=== PATIENT | female | born 1990 | race Caucasian/White ===

== ENCOUNTER → 2016-06-22 | Outpatient (REF) | payer OTHER | LOC: M LAB REF 12:53 | PROVIDERS: ATTEND Physician Assistant | DX: N39.0 Urinary tract infection, site not specified (principal) ==

== ENCOUNTER → 2016-08-03 | Outpatient (CLI) | payer OTHER ==
[~2016-08-03] MED LIST: KETO10TAB PO; OMEP40CA2 PO; ONDA1TAB15 PO
== END ==
LOC: M LAB 11:31
PROVIDERS: ATTEND Surgery
DX: K58.0 Irritable bowel syndrome with diarrhea (principal)

== ENCOUNTER → 2016-11-24 | Outpatient (REF) | payer OTHER ==
[~2016-11-24] MED LIST changes: +BACITAB PO; +CHOL4POW PO; +CIPR500T3 PO; +FLAG500T PO; +FLUO10CA9 PO; +HAIR1TAB5 PO; -ONDA1TAB15 PO; +ONDA4TAB5 PO; +PERCOCET PO; +PROBCAP4 PO
== END ==
LOC: M LAB REF 10:13
PROVIDERS: ATTEND Internal Medicine Gastroenterology
DX: R10.11 Right upper quadrant pain (principal); R11.0 Nausea; K59.1 Functional diarrhea

== ENCOUNTER 2016-11-26 23:18 | Emergency (ER) | payer OTHER ==
[~2016-11-26] VITALS: Ht 152.4 cm; Wt 100.0 kg
[~2016-11-26 23:18] MED LIST changes: -BACITAB PO; -CHOL4POW PO; -CIPR500T3 PO; -FLAG500T PO; -FLUO10CA9 PO; -HAIR1TAB5 PO; -PERCOCET PO; -PROBCAP4 PO
[2016-11-26] MEDS ORDERED: METOCLOPRAMIDE INJ 10MG/2ML VIAL (J2765) IV ONE (23:45)
[2016-11-26] MEDS ORDERED: MORPHINE 10 MG/ML 1ML VIAL IV ONE (23:45)
[2016-11-26] MEDS ORDERED: NS 1,000 ML IV ONE (23:45)
[2016-11-27 00:16] LABS: BASO # 0.1 K/mm3 (0.0-0.2); BASO % 0.5 % (0.0-1.0); EOS # 0.2 K/mm3 (0.0-0.50); EOS % 2.2 % (0.0-3.0); LARGE UNSTAINED CELL # 0.2 K/mm3 (0.0-0.4); LARGE UNSTAINED CELL % 1.6 % (0.0-4.0); LYMPH # 2.8 K/mm3 (1.5-6.5); LYMPH % 24.1 % (24.0-44.0); MEAN CORPUSCULAR HEMOGLOBIN 31.2 pg (27.0-33.0); MEAN CORPUSCULAR HGB CONC 35.4 g/dl (32.0-36.5); MEAN CORPUSCULAR VOLUME 88.2 fl (80.0-96.0); MONO # 0.6 K/mm3 (0.0-0.8); MONO % 5.7 % (0.0-5.0); NEUTROPHILS # 7.3 K/mm3 (1.8-7.7); NEUTROPHILS % 65.9 % (36.0-66.0); PLATELET COUNT, AUTOMATED 217 k/mm3 (150-450); RED CELL DISTRIBUTION WIDTH 13.1 % (11.5-14.5); WHITE BLOOD COUNT 11.1 K/mm3 (4.0-10.0)
[2016-11-27] MEDS ORDERED: GASTROGRAFIN SOLUTION 30ML (Q9963) PO ONE ×2 (00:30→01:00)
[2016-11-27 00:34] LABS: ALBUMIN/GLOBULIN RATIO 1.18 (1.00-1.93); ALKALINE PHOSPHATASE 78 U/L (45-117); ALT/SGPT 43 U/L (12-78); AMYLASE 71 U/L (25-115); ANION GAP 9 MEQ/L (8-16); AST/SGOT 28 U/L (15-37); BILIRUBIN,DIRECT 0.2 MG/DL (0.0-0.2); BILIRUBIN,TOTAL 0.9 MG/DL (0.2-1.0); BLOOD UREA NITROGEN 12 MG/DL (7-18); CALCIUM LEVEL 9.1 MG/DL (8.5-10.1); CARBON DIOXIDE LEVEL 25 MEQ/L (21-32); CHLORIDE LEVEL 107 MEQ/L (98-107); CREATININE FOR GFR 1.05 MG/DL (0.55-1.02); GLOMERULAR FILTRATION RATE > 60.0 (>60); GLUCOSE, FASTING 115 MG/DL (70-105); POTASSIUM SERUM 3.7 MEQ/L (3.5-5.1); SODIUM LEVEL 141 MEQ/L (136-145); TOTAL PROTEIN 7.4 GM/DL (6.4-8.2)
--- NOTE | 2016-11-27 01:50 | REPUSA ---
CLINICAL HISTORY: Abdominal pain. TECHNIQUE: Multiple axial, sagittal and coronal CT images were obtained through the abdomen and pelvi s without administration of oral or IV contrast material. COMMENTS: Paraesophageal hernia. Thickened bladder. The liver is mildly enlarged with decreased attenuation without mass or defect. There is no intra or extrahepatic biliary ductal dilatation. The spleen is normal. The gallbladder contains multiple galls tones. The pancreas is of normal contour and attenuation characteristics. There is no evidence of adr enal mass. The kidneys are normal in size, shape and configuration. No renal or ureteral calculi are identified. There is no hydroureter or hydronephrosis. There is no evidence for appendicitis. There is no bowel wall thickening. No evidence for small or la rge bowel obstruction. There is no evidence of abdominal ascites or lymphadenopathy. There is no evidence of intrinsic or extrinsic bladder mass. There is no pelvic ascites or lymphadeno anais. Images of the lung bases show no evidence of pleural or parenchymal mass. There are no pleural effusi ons. The bony structures are free of lytic or blastic lesions. Multilevel degenerative changes are seen in volving the thoracolumbar spine. Scattered calcifications are seen involving the aorta and major branches compatible with atherosclero sis. IMPRESSION: Paraesophageal hernia. Thickened bladder. Hepatomegaly with fatty liver infiltration. Cholelithiasis. Thank you for your kind referral of this patient.
[2016-11-27 03:07] VITALS: BP 119/64
[2016-11-28] MEDS ORDERED: FLUO10CA9 PO (22:29)
[2016-11-28] MEDS ORDERED: CIPR500T3 PO (22:29)
[2017-01-01] MEDS ORDERED: PROBCAP4 PO (07:46)
[2017-01-01] MEDS ORDERED: HAIR1TAB5 PO (07:46)
== END 2016-11-27 03:09 | disposition home or self-care (01) ==
LOC: M ED 23:18
DX: K80.20 Calculus of gallbladder without cholecystitis without obstruction (principal); K44.9 Diaphragmatic hernia without obstruction or gangrene; K76.0 Fatty (change of) liver, not elsewhere classified; R16.0 Hepatomegaly, not elsewhere classified; F17.200 Nicotine dependence, unspecified, uncomplicated; Z79.899 Other long term (current) drug therapy
CPT/HCPCS: 74176; 80048; 80076; 81001; 82150; 83690; 85025; 87086; 96374; 96375; 99283; J2765; Q9963

== ENCOUNTER 2016-11-28 22:17 | Observation (INO) | payer OTHER ==
[~2016-11-28] VITALS: Ht 162.6 cm; Wt 100.0 kg
[2016-11-28] MEDS ORDERED: CIPR500T3 PO (22:29)
[2016-11-28] MEDS ORDERED: FLUO10CA9 PO (22:29)
[2016-11-29] MEDS ORDERED: NS 1,000 ML IV ONE (01:00)
[2016-11-29] MEDS ORDERED: ONDANSETRON 4MG/2ML VIAL (J2405) IV ONE (01:00)
[2016-11-29] MEDS: MORPHINE 4 MG/ML 1ML SYRINGE IV PRN ×4 (01:09→18:15)
[2016-11-29 01:17] LABS: CONTROL LINE HCG INT CTR LINE PRESENT
[2016-11-29 01:21] LABS: BASO # 0.1 K/mm3 (0.0-0.2); BASO % 0.6 % (0.0-1.0); EOS # 0.3 K/mm3 (0.0-0.50); EOS % 2.4 % (0.0-3.0); LARGE UNSTAINED CELL # 0.2 K/mm3 (0.0-0.4); LARGE UNSTAINED CELL % 1.2 % (0.0-4.0); LYMPH % 23.2 % (24.0-44.0); MEAN CORPUSCULAR HEMOGLOBIN 31.5 pg (27.0-33.0); MEAN CORPUSCULAR HGB CONC 35.4 g/dl (32.0-36.5); MEAN CORPUSCULAR VOLUME 89.1 fl (80.0-96.0); MONO # 0.7 K/mm3 (0.0-0.8); MONO % 5.5 % (0.0-5.0); NEUTROPHILS # 8.6 K/mm3 (1.8-7.7); NEUTROPHILS % 67.1 % (36.0-66.0); PLATELET COUNT, AUTOMATED 238 k/mm3 (150-450); WHITE BLOOD COUNT 12.8 K/mm3 (4.0-10.0)
[2016-11-29 01:38] LABS: ALBUMIN/GLOBULIN RATIO 1.18 (1.00-1.93); ALKALINE PHOSPHATASE 79 U/L (45-117); ALT/SGPT 39 U/L (12-78); ANION GAP 10 MEQ/L (8-16); AST/SGOT 24 U/L (15-37); BILIRUBIN,DIRECT 0.1 MG/DL (0.0-0.2); BILIRUBIN,TOTAL 0.6 MG/DL (0.2-1.0); BLOOD UREA NITROGEN 9 MG/DL (7-18); CALCIUM LEVEL 8.9 MG/DL (8.5-10.1); CARBON DIOXIDE LEVEL 26 MEQ/L (21-32); CHLORIDE LEVEL 107 MEQ/L (98-107); CREATININE FOR GFR 0.97 MG/DL (0.55-1.02); GLOMERULAR FILTRATION RATE > 60.0 (>60); GLUCOSE, FASTING 110 MG/DL (70-105); POTASSIUM SERUM 4.3 MEQ/L (3.5-5.1); SODIUM LEVEL 143 MEQ/L (136-145); TOTAL PROTEIN 7.4 GM/DL (6.4-8.2)
[2016-11-29] MEDS ORDERED: ISOVUE-370 76% 100ML VIAL (Q9967) As Ordered ONE (02:11)
--- NOTE | 2016-11-29 03:40 | REPUSA ---
CLINICAL HISTORY: Abdominal pain. TECHNIQUE: Multiple axial, sagittal and coronal CT images were obtained through the abdomen and pelvi s after administration of intravenous contrast material. COMMENTS: Comparison is made to the prior exam performed on 11/27/2016. The liver remains moderately enlarged with decreased attenuation without mass or defect. There is no intra or extrahepatic biliary ductal dilatation. The spleen remains mildly enlarged. The gallbladder is thickened containing gallstones. The pancreas is of normal contour and attenuation characteristics . There is no evidence of adrenal mass. Both kidneys demonstrate prompt and equal nephrograms. The kidneys are normal in size, shape and conf iguration. There is no evidence of renal or ureteral mass. No renal or ureteral calculi are identifie d. There is no hydroureter or hydronephrosis. No evidence for appendicitis. No evidence for small or large bowel obstruction. There is no evidence of abdominal ascites or lymphadenopathy. Mild thickening of the sigmoid colon. There is no evidence of intrinsic or extrinsic bladder mass. There is no pelvic ascites or lymphadeno anais. 1.6 cm right ovarian follicle/corpus luteum cyst. Moderate large bowel fecal stasis. Thickened sigmoi d colon. Images of the lung bases show no evidence of pleural or parenchymal mass. There are no pleural effusi ons. The bony structures are free of lytic or blastic lesions. Multilevel degenerative changes are seen in volving the thoracolumbar spine. Scattered calcifications are seen involving the aorta and major bran ches compatible with atherosclerosis. Fat containing umbilical hernia without incarceration. IMPRESSION: Thickened sigmoid colon suggestive of colitis. No perforation or abscess formation. This was not pres ent on prior exam. Moderate sliding hiatal hernia. Thank you for your kind referral of this patient.
[2016-11-29] MEDS ORDERED: MORPHINE 4 MG/ML 1ML SYRINGE IV PRN (04:15)
[2016-11-29] MEDS ORDERED: CIPROFLOXACIN 400 MG in APPROPRIATE DILUENT 1 EA IV ONE (04:30)
[2016-11-29] MEDS ORDERED: ACETAMINOPHEN TAB 650MG DOSE (2X325MG) PO PRN (04:30)
[2016-11-29] MEDS ORDERED: metroNIDAZOLE 500 MG in APPROPRIATE DILUENT 1 EA IV ONE (04:30)
[2016-11-29] MEDS ORDERED: ONDA4TAB5 PO (04:37)
[2016-11-29] MEDS ORDERED: CHOL4POW PO (04:37)
[2016-11-29] MEDS ORDERED: OMEP40CA2 PO (04:37)
--- NOTE | 2016-11-29 05:19 | HPEPDOC ---
Medical History and Physical Date of Admission Nov 28, 2016 at 22:18 History and Physical PRIMARY CARE PROVIDER: Kane Trejo ATTENDING: Hoang Augustin DO CHIEF COMPLAINT: Worsening abdominal pain HISTORY OF PRESENT ILLNESS: 26-year-old female presents to emergency department with worsening abdominal pain for the last 24 hours. She has previously been evaluated by the emergency department within the last few weeks for similar symptoms with worsening abdominal pain, nausea, vomiting. [place] to have cholelithiasis with no acute findings of cholecystitis. She's had a recent EGD/ colonoscopy [address] Anna Travis in [place]. Recently found to have duodenitis and was started on Cipro by mouth 500 mg twice a day and felt that her abdominal pain was better for the last few days until today. This morning she has had progressively worsening abdominal pain, which she recently relates as being diffuse, intermittent with sharp, colicky type pain that radiates to her back. She's also had nausea, vomiting and she's not had a bowel movement for 2 days prior to this. She denies having any bloody stool. No dysuria, frequency or hematuria. She denies fevers, chills, RIGORS but she has had decreased appetite. She denies any sick contacts. There does not appear to be any family history of inflammatory bowel disease. PAST MEDICAL HISTORY: 1. Depression. 2. Recurrent chronic abdominal pain. 3. Recent duodenitis. 4. GERD. 5. Cholelithiasis PAST SURGICAL HISTORY: 1. 2. 2. Colonoscopy November 2006. 3. Right tibial fracture with repair. SOCIAL HISTORY: She is not . She has 2 biological children. She smokes less than 10 cigarettes a day. Drinks alcohol on occasion but denies any illicit drug use FAMILY HISTORY: No family history of inflammatory bowel disease ALLERGIES: No known drug allergies REVIEW OF SYSTEMS: CONSTITUTIONAL: No fever, chills, weight loss. HEENT: No headache, lightheadedness, blurred or loss of vision. No difficulty with speech or swallow. CARDIOVASCULAR: No chest pain, palpitations, paroxysmal nocturnal dyspnea or lower extremity edema RESPIRATORY: No cough, productive sputum, wheeze or hemoptysis GENITOURINARY: No dysuria, frequency, or discharge MUSCULOSKELETAL: No bone, muscle or joint pain. GASTROINTESTINAL: Decreased appetite, vague abdominal pain, distention, colicky type pain. 3 patient to the back as outlined per HPI. She has not had any diarrhea. She states she's not had a bowel movement for the last 2 days since her colonoscopy. But she's had ongoing problems with abdominal pain for the last several months. SKIN: No complaint of lesions, abrasions or rashes NEUROLOGICAL: No blurred vision, headaches, parasthesias or paralysis PSYCHIATRIC: No depression, anxiety, audiovisual hallucinations. No suicidal ideations. ENDOCRINE: Denies history of diabetes or thyroid disorder. No history of endocrine abnormalities. HEMATOLOGIC/LYMPHATIC: No lumpbs, bumps or swelling of neck, axilla or groin. No night sweats or weight loss. HOME MEDICATIONS: Please see below. PHYSICAL EXAMINATION: VITAL SIGNS: Stable. No acute findings see below GENERAL APPEARANCE: Mild discomfort with the abdominal pain. She's able to speak in complete sentences and is pleasant otherwise. Scrubs her pain at times is 9 out of 10.. HEENT: Eyes PERRLA. Throat clear. Neck supple. . CARDIOVASCULAR: Regular rate and rhythm. No murmurs. LUNGS: Clear to auscultation bilaterally. ABDOMEN: Vague distention, vague tenderness, positive bowel sounds. No rebound. MUSCULOSKELETAL: No bone, muscle or joint tenderness. No erythema. No limitations in range of motion. EXTREMITIES: No edema, no calf tenderness. NEUROLOGICAL: [place] nursing 12 appear grossly intact. No motor or sensory deficits. LABORATORY DATA: See below. IMAGING: CT abdomen and pelvis with contrast: Thickened sigmoid colon suggestive of colitis. No perforation or abscess formation. This is a new finding from prior CT scan that was done in the last couple weeks. Gallbladder ultrasound: Repeat gallbladder ultrasound is pending at this time noting that she had a ultrasound done of the gallbladder and a nuclear scan in June 2016 that was suggestive of cholelithiasis but no cholecystitis. MICROBIOLOGY: Please see below. ASSESSMENT: 1. Acute colitis. 2. Leukocytosis. 3. Nausea and vomiting. 4. GERD. 5. History of depression with no suicidal ideation or audiovisual hallucinations.. . PLAN: Patient will be admitted to the medical floor. Dr. TIM. We'll see the patient in the morning. She will be made nothing by mouth, will be started on IV normal saline at 100 mL per hour. We'll see how she does through breakfast she may be started on clear liquid diet that time and progress as tolerated. IV antibiotics will include Cipro and metronidazole. IV Zofran for nausea, for her abdominal pain. We'll treat with IV morphine, by mouth, Percocet, and Toradol. Additionally, we will include a lactic acid with her labs. Repeat her morning labs including a CMP and CBC. For now, she does not appear to have an acute abdomen requiring a surgical evaluation, however, she should progress and symptoms become worse, we may want to consider a surgical consult with Dr. Philippe who is concrete form setter and finisher this weekend and has seen the patient previously. Otherwise, we will continue her on her home medications with Prozac, Prilosec. DVT prophylaxis with Lovenox. Disposition: The patient be admitted as observation.. Vital Signs Vital Signs Date Time Temp Pulse Resp B/P (MAP) Pulse Ox O2 Delivery O2 Flow Rate FiO2 11/29/16 04:29 18 Room Air 11/29/16 03:58 78 11/29/16 03:43 98 11/29/16 03:42 156/86 (109) 11/28/16 22:23 96.2 Laboratory Data Labs 24H Laboratory Tests 2 11/29/16 00:58: Anion Gap 10, Glomerular Filtration Rate > 60.0, Calcium Level 8.9, Aspartate Amino Transf (AST/SGOT) 24, Alanine Aminotransferase (ALT/SGPT) 39, Alkaline Phosphatase 79, Total Bilirubin 0.6, Direct Bilirubin 0.1, Total Protein 7.4, Albumin 4.0, Albumin/Globulin Ratio 1.18, Lipase 270, Human Chorionic Gonadotropin, Qual NEGATIVE 11/29/16 00:59: White Blood Count 12.8H, Red Blood Count 4.51, Hemoglobin 14.2, Hematocrit 40.2 , Mean Corpuscular Volume 89.1, Mean Corpuscular Hemoglobin 31.5, Mean Corpuscular Hemoglobin Concent 35.4, Red Cell Distribution Width 13.0, Platelet Count 238, Neutrophils (%) (Auto) 67.1H, Lymphocytes (%) (Auto) 23.2L, Monocytes (%) (Auto) 5.5H, Eosinophils (%) (Auto) 2.4, Basophils (%) (Auto) 0.6 , Neutrophils # (Auto) 8.6H, Lymphocytes # (Auto) 3.0, Monocytes # (Auto) 0.7, Eosinophils # (Auto) 0.3, Basophils # (Auto) 0.1, Large Unclassified Cells % 1.2 , Large Unclassified Cells # 0.2, Urine Appearance HAZY, Urine Color YELLOW, Urine pH 5.0, Urine Specific [place] 1.024, Urine Protein NEGATIVE, Urine Glucose (UA) NEGATIVE, Urine Ketones NEGATIVE, Urine Urobilinogen 0.2, Urine Bilirubin NEGATIVE, Urine Leukocyte Esterase NEGATIVE, Urine Blood NEGATIVE, Urine Nitrite NEGATIVE, Urine WBC (Auto) 2, Urine RBC (Auto) 1, Urine Hyaline Casts (Auto) 0, Urine Bacteria (Auto) NEGATIVE, Urine Squamous Epithelial Cells 11, Urine Mucus (Auto) SMALL, Urine Sperm (Auto) CBC/BMP Laboratory Tests 11/29/16 00:58 11/29/16 00:59 Red Blood Count 4.51, Mean Corpuscular Volume 89.1, Mean Corpuscular Hemoglobin 31.5, Mean Corpuscular Hemoglobin Concent 35.4, Red Cell Distribution Width 13.0 , Neutrophils (%) (Auto) 67.1 H, Lymphocytes (%) (Auto) 23.2 L, Monocytes (%) ( Auto) 5.5 H, Eosinophils (%) (Auto) 2.4, Basophils (%) (Auto) 0.6, Neutrophils # (Auto) 8.6 H, Lymphocytes # (Auto) 3.0, Monocytes # (Auto) 0.7, Eosinophils # (Auto) 0.3, Basophils # (Auto) 0.1 Microbiology Microbiology 11/29/16 Blood Culture, Received Pending 11/29/16 Blood Culture, Received Pending 11/29/16 Urine Culture, Received Pending Home Medications Scheduled Cholestyramine (Cholestyramine Light) 4 Gm/Dose Pow, 1 PKT PO TIDP Ciprofloxacin HCl (Ciprofloxacin HCl) 500 Mg Tab, 500 MG PO BID TO END 12/06/16 Fluoxetine HCl (Fluoxetine HCl) 10 Mg Cap, 10 MG PO DAILY Omeprazole (Omeprazole) 40 Mg Cap, 40 MG PO BID Scheduled PRN Ondansetron HCl (Ondansetron HCl) 4 Mg Tab, 4 MG PO QID PRN for NAUSEA Allergies Coded Allergies: No Known Drug Allergy (Verified Allergy, Unknown, 07/26/12) HOANG AUGUSTIN DO Nov 29, 2016 05:19
--- NOTE | 2016-11-29 05:20 | REPUSA ---
CLINICAL HISTORY: Abdominal pain. TECHNIQUE: Realtime sonographic images were obtained in multiple projections. COMMENTS: There is diffuse increase in hepatic echogenicity suggestive of fatty liver infiltration. Gallstones are noted. Distended gallbladder. Nondilated common bile duct measuring 3.9 mm. The right kidney measures 9.1x4.9x1.2 cm. IMPRESSION: Fatty liver. Cholelithiasis. Thank you for your kind referral of this patient.
[2016-11-29] MEDS: NS 1,000 ML IV SCH ×2 (05:57→15:47)
[2016-11-29] MEDS: KETOROLAC TROMETHAMINE 10 MG TAB PO PRN ×3 (05:57→20:08)
[2016-11-29 06:00] VITALS: BP 141/67
[2016-11-29] MEDS: ONDANSETRON 4MG/2ML VIAL (J2405) IV PRN ×3 (06:12→20:08)
[2016-11-29 08:00] VITALS: BP 131/72
[2016-11-29] MEDS: PERCOCET 5MG/325MG TAB PO PRN ×3 (08:55→21:52)
[2016-11-29 09:15] VITALS: BP 121/71
[2016-11-29] MEDS: OMEPRAZOLE 20 MG CAP PO SCH (11:30)
[2016-11-29] MEDS: ENOXAPARIN 40 MG/0.4 ML SYRINGE (J1650) SC SCH (11:30)
[2016-11-29] MEDS: FLUoxetine 10 MG CAP PO SCH (11:30)
[2016-11-29] MEDS: metroNIDAZOLE 500 MG in APPROPRIATE DILUENT 1 EA IV SCH ×2 (11:30→20:02)
--- NOTE | 2016-11-29 15:39 | IPN ---
DATE: 11/29/2016 SUBJECTIVE: The patient is seen and examined in the room today. The patient stated her pain is improving with the current pain medication regimen. Per patient, when the patient first arrived in the emergency room, they had a very difficult time controlling her pain, even after multiple doses of morphine and she still had uncontrolled excruciating pain. Currently, the pain is still across her upper abdomen but nausea is improving. OBJECTIVE: VITAL SIGNS: Temperature is 96.8, pulse is 73, respiratory rate of 20, blood pressure 131/72, pulse oximetry is 99% in room air. GENERAL: No sign of acute distress, resting comfortably in bed. HEENT: Normocephalic, atraumatic. Extraocular motor grossly intact. CARDIOVASCULAR: Positive S1, S2, regular rate. LUNGS: Clear to auscultation bilaterally. ABDOMEN: Soft, tenderness to palpation mainly on the right upper quadrant. Positive rebound. MUSCULOSKELETAL: No edema. No sign of cyanosis. LABORATORY DATA: Done near midnight: WBC 12.8, hemoglobin 14.2, hematocrit 40.2, platelet count is 238. Sodium is 143, potassium 4.3, chloride is 107, carbon dioxide is 26, BUN is 9, creatinine is 0.97, GFR greater than 60, fasting glucose 110, calcium is 8.9, total bilirubin 0.6, direct bilirubin 0.1, AST 24, ALT 29, alkaline phosphatase is 79, total protein 7.4. Albumin 4, lipase 270. HCG is negative. ASSESSMENT AND PLAN: 1. Acute colitis. The patient has been started on Cipro and Flagyl. The patient is using IV Zofran for nausea. The patient does have IV morphine and oral Toradol for pain control. 2. Cholelithiasis, resulting in intermittent right upper abdominal quadrant pain. 3. Gastroesophageal reflux disease. 4. Depression, on Prozac. 5. Deep vein thrombosis (DVT) prophylaxis, on Lovenox.
[2016-11-29 16:00] VITALS: BP 124/74
[2016-11-29] MEDS: CIPROFLOXACIN 400 MG in APPROPRIATE DILUENT 1 EA IV SCH (18:14)
[2016-11-29 20:00] VITALS: BP 118/70
[2016-11-30] MEDS: NS 1,000 ML IV SCH (01:20)
[2016-11-30] MEDS: MORPHINE 4 MG/ML 1ML SYRINGE IV PRN (01:20)
[2016-11-30] MEDS: KETOROLAC TROMETHAMINE 10 MG TAB PO PRN ×2 (02:44→11:24)
[2016-11-30 04:00] VITALS: BP 119/73
[2016-11-30] MEDS: metroNIDAZOLE 500 MG in APPROPRIATE DILUENT 1 EA IV SCH (04:10)
[2016-11-30] MEDS: CIPROFLOXACIN 400 MG in APPROPRIATE DILUENT 1 EA IV SCH (06:24)
[2016-11-30] MEDS: PERCOCET 5MG/325MG TAB PO PRN (06:24)
[2016-11-30 07:07] LABS: MEAN CORPUSCULAR HEMOGLOBIN 31.3 pg (27.0-33.0); MEAN CORPUSCULAR VOLUME 89.6 fl (80.0-96.0); RED CELL DISTRIBUTION WIDTH 13.2 % (11.5-14.5)
[2016-11-30 07:28] LABS: ALBUMIN 2.9 GM/DL (3.2-5.2); ALKALINE PHOSPHATASE 59 U/L (45-117); ALT/SGPT 26 U/L (12-78); ANION GAP 9 MEQ/L (8-16); AST/SGOT 15 U/L (15-37); BILIRUBIN,TOTAL 0.4 MG/DL (0.2-1.0); BLOOD UREA NITROGEN 8 MG/DL (7-18); CALCIUM LEVEL 7.9 MG/DL (8.5-10.1); CARBON DIOXIDE LEVEL 26 MEQ/L (21-32); CHLORIDE LEVEL 108 MEQ/L (98-107); GLOMERULAR FILTRATION RATE > 60.0 (>60); GLUCOSE, FASTING 123 MG/DL (70-105); POTASSIUM SERUM 3.9 MEQ/L (3.5-5.1); SODIUM LEVEL 143 MEQ/L (136-145); TOTAL PROTEIN 5.8 GM/DL (6.4-8.2)
[2016-11-30 08:00] VITALS: BP 133/60
[2016-11-30] MEDS: FLUoxetine 10 MG CAP PO SCH (09:11)
[2016-11-30] MEDS: OMEPRAZOLE 20 MG CAP PO SCH (09:11)
[2016-11-30] MEDS: ENOXAPARIN 40 MG/0.4 ML SYRINGE (J1650) SC SCH (09:12)
[2016-11-30] MEDS: ONDANSETRON 4MG/2ML VIAL (J2405) IV PRN (11:24)
[2016-11-30] MEDS ORDERED: PERCOCET PO (11:43)
[2016-11-30] MEDS ORDERED: FLAG500T PO (11:43)
[2016-11-30] MEDS ORDERED: BACITAB PO (11:43)
[2016-11-30] MEDS ORDERED: FLUO10CA9 PO (12:35)
--- NOTE | 2016-11-30 20:39 | DSES ---
DATE OF ADMISSION: 11/28/2016 DATE OF DISCHARGE: 11/30/2016 CONSULTANTS: None. PROCEDURES: None. COMPLICATIONS: None. DISCHARGE DIAGNOSES: 1. Acute colitis. 2. Severe cholelithiasis resulting in recurrent right upper quadrant abdominal pain. 3. Gastroesophageal reflux disease. 4. Depression. 5. Hiatal hernia. HOSPITALIZATION COURSE: The patient is a 26-year-old female who presented to [facility] on 11/28/2016 for worsening abdominal pain. The patient had a recent history of esophagogastroduodenoscopy (EGD) and colonoscopy (2 days prior to admission). The patient was admitted for acute colitis. The patient was started on Cipro and Flagyl. The patient was continued on pain control and medical management. CT scan findings suggested colitis. The patient was admitted to the medical-surgical floor under observation status with antibiotic and medical management. Patient showed improvement of her abdominal pain. On 11/30/2016, the patient was determined medically stable for discharge with recommendation to finish a course of antibiotics and the patient was recommended to followup with her surgeon or gastrointestinal (GI) specialist to evaluate her recurrent right-sided abdominal pain due to significant cholelithiasis. OBJECTIVE: Vital Signs: Temperature is 98.7, pulse is 71, respirations 20, blood pressure is 133/60, pulse oximetry is 98% in room air. LABORATORY DATA: WBC 7, hemoglobin 11.6, hematocrit 33.3, platelet count is 147. Sodium is 143, potassium 3.9, chloride is 108, carbon dioxide 26, BUN 8, creatinine 0.9, GFR greater than 60, fasting glucose 123, calcium is 7.9, total bilirubin is 0.4, AST 15, ALT 26, alkaline phosphatase 59, C-reactive protein is 1.64. Total protein is 5.8, albumin 2.9. HCG is negative. Lipase is 270. UA is negative. Microbiology: Blood culture is negative after 24 hours times two sets. Urine culture is negative. IMAGING STUDIES: Gallbladder ultrasound on 11/29/2016 showed fatty liver. Cholelithiasis. CT of the abdomen and pelvis with IV contrast only on 11/29/2016 showed thickened sigmoid colon suggestive of colitis. No perforation or abscess formation. Moderate sliding hiatal hernia. DISCHARGE MEDICATIONS: - fluoxetine 10 mg by mouth daily - Bacid one tablet by mouth with meals - Flagyl 500 mg by mouth every 8 hours - ciprofloxacin 500 mg by mouth twice a day - Percocet 5/325 one tablet by mouth every 6 hours as needed for a 5-day supply - omeprazole 40 mg by mouth twice a day - ondansetron 4 mg by mouth four times a day as needed for nausea DISCHARGE INSTRUCTIONS: Discontinue lines. Discharge home. Activity as tolerated. Diet as tolerated. Patient should followup with her primary care provider in 1-2 weeks. Patient was recommended to followup with a GI specialist, her own surgeon to reevaluate recurrent right upper quadrant abdominal pain due to significant cholelithiasis. DISCHARGE CONDITION: Stable. DISCHARGE TIME: Greater than 30 minutes.
[2017-01-01] MEDS ORDERED: PROBCAP4 PO (07:46)
[2017-01-01] MEDS ORDERED: HAIR1TAB5 PO (07:46)
== END 2016-11-30 13:30 | disposition home or self-care (01) ==
LOC: M ED 22:17 → M ED INP 22:18 → M PED 11-29 09:12
PROVIDERS: ADMIT Hospitalist; ATTEND Internal Medicine
DX: K52.9 Noninfective gastroenteritis and colitis, unspecified (principal); K80.20 Calculus of gallbladder without cholecystitis without obstruction; R10.11 Right upper quadrant pain; K21.9 Gastro-esophageal reflux disease without esophagitis; F32.9 Major depressive disorder, single episode, unspecified; K44.9 Diaphragmatic hernia without obstruction or gangrene; D72.829 Elevated white blood cell count, unspecified; K76.0 Fatty (change of) liver, not elsewhere classified; R11.2 Nausea with vomiting, unspecified; F17.210 Nicotine dependence, cigarettes, uncomplicated; Z79.899 Other long term (current) drug therapy; Z79.2 Long term (current) use of antibiotics
CPT/HCPCS: 36415; 74177; 76705; 80048; 80053; 80076; 81001; 83690; 84703; 85025; 85027; 86140; 87040; 87086; 93041; 96365; 96366; 96367; 96372; 96375; 96376; 99285; J0744; J1650; J2405; Q9967

== ENCOUNTER 2017-01-08 08:07 | Day surgery (SDC) | payer OTHER ==
[~2017-01-08] VITALS: Ht 152.4 cm; Wt 95.3 kg
[~2017-01-08 08:07] MED LIST changes: +BACITAB PO; +CHOL4POW PO; +CIPR500T3 PO; +FLAG500T PO; +FLUO10CA9 PO; +HAIR1TAB5 PO; +PERCOCET PO; +PROBCAP4 PO
[2017-01-08 08:35] LABS: CONTROL LINE UCG INT CTR LINE PRESENT
[2017-01-08] MEDS ORDERED: BUPIVACAINE/EPIN 0.25% 30 ML VIAL As Ordered ONE (09:08)
[2017-01-08] MEDS ORDERED: ceFAZolin 2 GM/D5W 50 ML IV BAG (J0690) As Ordered ONE (09:12)
[2017-01-08] MEDS ORDERED: LIDOCAINE 2% INJ 100 MG/5 ML SDV (FOR ANES.) As Ordered ONE (09:33)
[2017-01-08] MEDS ORDERED: fentaNYL 100 MCG/2 ML INJECTION (J3010) As Ordered ONE (09:33)
[2017-01-08] MEDS ORDERED: ROCURONIUM BROMIDE 50 MG/5 ML VIAL/SYRINGE As Ordered ONE (09:33)
[2017-01-08] MEDS ORDERED: PROPOFOL 200 MG/20 ML VIAL As Ordered ONE (09:33)
[2017-01-08] MEDS ORDERED: MIDAZOLAM INJ 2 MG/2 ML VIAL (J2250) As Ordered ONE (09:33)
[2017-01-08] MEDS ORDERED: dexameTHASONE 4 MG/ML 1ML VIAL (J1100) As Ordered ONE (09:34)
[2017-01-08] MEDS ORDERED: ceFAZolin 2 GM/D5W 50 ML IV BAG (J0690) IV ONE (09:38)
[2017-01-08] MEDS ORDERED: KETOROLAC 60 MG/2 ML VIAL (J1885) As Ordered ONE (09:57)
[2017-01-08] MEDS ORDERED: ONDANSETRON 4MG/2ML VIAL (J2405) As Ordered ONE ×2 (09:57→10:34)
[2017-01-08] MEDS ORDERED: NEOSTIGMINE 10 MG/10 ML VIAL (J2710) As Ordered ONE (09:59)
[2017-01-08] MEDS ORDERED: GLYCOPYRROLATE INJ 0.2 MG/ML 2 ML VIAL As Ordered ONE (09:59)
[2017-01-08] MEDS ORDERED: MEPERIDINE INJ 25 MG/ML VIAL (J2175) IV PRN (10:45)
[2017-01-08] MEDS ORDERED: ONDANSETRON 4MG/2ML VIAL (J2405) IV PRN (10:45)
[2017-01-08] MEDS ORDERED: NORCO, ANEXSIA 5/325MG TABLET (HYDROcodone/ACETAMINOPHEN) PO PRN (10:45)
[2017-01-08] MEDS: PERCOCET 5MG/325MG TAB PO PRN ×2 (10:45→11:15)
[2017-01-08] MEDS ORDERED: LR 1,000 ML IV SCH (10:45)
[2017-01-08] MEDS ORDERED: METOCLOPRAMIDE INJ 10MG/2ML VIAL (J2765) IV PRN (10:45)
[2017-01-08] MEDS ORDERED: fentaNYL 100 MCG/2 ML INJECTION (J3010) IV PRN (10:45)
--- NOTE | 2017-01-08 11:09 | RO ---
DATE OF PROCEDURE: 01/08/2017 PREOPERATIVE DIAGNOSIS: Symptomatic cholelithiasis. POSTOPERATIVE DIAGNOSIS: Symptomatic cholelithiasis. PROCEDURE: Laparoscopic cholecystectomy. SURGEON: Dr. Ignacio SUPPLY REQUIREMENTS OFFICER: None. ANESTHESIA: General. ESTIMATED BLOOD LOSS: 5 COMPLICATIONS: None. INDICATION FOR PROCEDURE: The patient is a 26-year-old female who presents with symptomatic cholelithiasis. Recommendation was to proceed with laparoscopic, possible open cholecystectomy. Risks and benefits of the procedure, not limited to, but including bleeding, infection, hernia formation, damage to surrounding structures, need for further surgery were discussed in detail with the patient and informed consent was obtained. Procedure was planned. PROCEDURE: The patient was brought back to operating room #3. After sufficient sedation, the abdomen was sterilely prepped and draped. Next, time-out was done to confirm proper patient and proper procedure. Following that, a stab incision was made in the left lower quadrant, Veress needle was inserted and the abdomen was insufflated to 50 mmHg. Next, a 5 mm infraumbilical incision was made. A 5 mm Optiview port was used to gain access to the abdomen. Once the abdomen was entered, Veress needle site was examined and there were no signs of any injury. Veress needle was then removed. The 10 mm port was then placed subxiphoid, two 5 mm ports to the right upper quadrant. Fundus of the gallbladder was grasped, elevated up towards right shoulder. The cystic duct and cystic artery were both carefully dissected free using combination of blunt and sharp dissection. They were both then doubly clipped and cut. Once those were freed, the of gallbladder was removed from the gallbladder fossa using electrocautery. Gallbladder was then placed in a 10 mm EndoCatch bag and brought out through the subxiphoid port site. Once the gallbladder was removed, the right upper quadrant was examined to confirm hemostasis. The abdomen was then desufflated. Skin incisions were closed #4-0 Vicryl subcuticular sutures. The abdomen was cleaned and dried. Steri-Strips, 4x4 and tape were applied, thus ending procedure.
[2017-01-08 12:15] VITALS: BP 144/70
== END 2017-01-08 12:43 | disposition home or self-care (01) ==
LOC: M SDC 08:07
PROVIDERS: ATTEND Surgery
DX: K80.10 Calculus of gallbladder with chronic cholecystitis without obstruction (principal); K44.9 Diaphragmatic hernia without obstruction or gangrene; F41.9 Anxiety disorder, unspecified; Z79.899 Other long term (current) drug therapy; Z72.0 Tobacco use; Z86.19 Personal history of other infectious and parasitic diseases

== ENCOUNTER → 2017-02-11 | Outpatient (REF) | payer OTHER | LOC: M LAB REF 17:27 | PROVIDERS: ATTEND Family Medicine Addiction Medicine | DX: Z11.3 Encounter for screening for infections with a predominantly sexual mode of transmission (principal); Z12.4 Encounter for screening for malignant neoplasm of cervix ==

== ENCOUNTER 2018-06-27 21:14 | Emergency (ER) | payer BC, MEDICAID, OTHER, SELFPAY ==
[~2018-06-27] VITALS: Ht 152.4 cm; Wt 104.1 kg
[2018-06-27 21:14] VITALS: BP 158/100
[2018-06-27] MEDS ORDERED: ESCI10TA2 (21:19)
[2018-06-27 22:07] LABS: INFLUENZA A AMPLIFICATION NEGATIVE (NEGATIVE); INFLUENZA B AMPLIFICATION NEGATIVE (NEGATIVE)
[2018-06-27] MEDS ORDERED: DEBR6.5S4 OTIC (23:23)
== END 2018-06-28 00:10 | disposition home or self-care (01) ==
LOC: M ED 21:14
DX: J02.9 Acute pharyngitis, unspecified (principal); H61.23 Impacted cerumen, bilateral; R51 Headache; R11.0 Nausea; I10 Essential (primary) hypertension; K21.9 Gastro-esophageal reflux disease without esophagitis; K44.9 Diaphragmatic hernia without obstruction or gangrene; F41.9 Anxiety disorder, unspecified; M54.5 Low back pain; F17.210 Nicotine dependence, cigarettes, uncomplicated

== ENCOUNTER 2018-08-03 08:57 | Emergency (ER) | payer BC, MEDICAID, SELFPAY ==
[~2018-08-03] VITALS: Ht 152.4 cm; Wt 104.5 kg
[~2018-08-03 08:57] MED LIST changes: +DEBR6.5S4 OTIC; +ESCI10TA2
[2018-08-03 10:18] LABS: INFLUENZA A AMPLIFICATION NEGATIVE (NEGATIVE); INFLUENZA B AMPLIFICATION NEGATIVE (NEGATIVE)
[2018-08-03 10:51] VITALS: BP 136/77
[2018-08-03] MEDS ORDERED: LIDO1SOL8 PO (11:02)
[2018-08-03] MEDS ORDERED: FLON1SPR NARES (11:02)
[2018-08-03] MEDS ORDERED: MUCI600T31 PO (11:02)
== END 2018-08-03 11:10 | disposition home or self-care (01) ==
LOC: M ED 08:57
DX: J06.9 Acute upper respiratory infection, unspecified (principal)

== ENCOUNTER 2018-09-09 23:00 | Emergency (ER) | payer BC, MEDICAID, OTHER ==
[~2018-09-09] VITALS: Ht 152.4 cm; Wt 104.5 kg
[~2018-09-09 23:00] MED LIST changes: +FLON1SPR NARES; +LIDO1SOL8 PO; +MUCI600T31 PO
[2018-09-09] MEDS ORDERED: LEXA1TAB PO (23:03)
[2018-09-09] MEDS ORDERED: ONDANSETRON 4MG/2ML VIAL (J2405) IV ONE (23:30)
[2018-09-09] MEDS ORDERED: NS 1,000 ML IV ONE (23:30)
[2018-09-09 23:56] LABS: APPEARANCE, URINE CLOUDY (CLEAR); BACTERIA, URINE AUTO NEGATIVE (NEGATIVE); BILIRUBIN, URINE AUTO NEGATIVE (NEGATIVE); BLOOD, URINE BLOOD NEGATIVE (NEGATIVE); COLOR, URINE YELLOW (YELLOW); GLUCOSE, URINE (UA) AUTO 2+ mg/dL (NEGATIVE); KETONE, URINE AUTO NEGATIVE (NEGATIVE); LEUKOCYTE ESTERASE, URINE AUTO 3+ (NEGATIVE); NITRITE, URINE AUTO NEGATIVE (NEGATIVE); PROTEIN, URINE AUTO NEGATIVE (NEGATIVE); RBC, URINE AUTO 5 /HPF (0-3); SPECIFIC GRAVITY URINE AUTO 1.025 (1.002-1.035); SQUAMOUS EPITHELIAL CELL UR AU 9 /HPF (0-6); UROBILINOGEN, URINE AUTO 0.2 mg/dL (0.0-2.0); WBC, URINE AUTO 9 /HPF (0-3)
[2018-09-10] MEDS ORDERED: KETOROLAC 30 MG/ML VIAL (J1885) IV ONE
[2018-09-10 00:10] LABS: BASO # 0.1 10^3/uL (0.0-0.2); BASO % 0.4 % (0.0-1.0); EOS # 0.2 10^3/uL (0.0-0.50); EOS % 1.3 % (0.0-3.0); HEMATOCRIT 35.4 % (36.0-47.0); HEMOGLOBIN 11.7 g/dl (12.0-15.5); LYMPH % 23.1 % (24.0-44.0); MEAN CORPUSCULAR HEMOGLOBIN 28.3 pg (27.0-33.0); MEAN CORPUSCULAR HGB CONC 33.1 g/dl (32.0-36.5); MEAN CORPUSCULAR VOLUME 85.5 fl (80.0-96.0); MONO # 0.8 10^3/uL (0.0-0.8); MONO % 5.8 % (0.0-5.0); NEUTROPHILS # 8.8 10^3/uL (1.8-7.7); NEUTROPHILS % 68.8 % (36.0-66.0); PLATELET COUNT, AUTOMATED 239 10^3/uL (150-450); RED BLOOD COUNT 4.14 10^6/uL (4.00-5.40); WHITE BLOOD COUNT 12.8 10^3/uL (4.0-10.0)
[2018-09-10 00:16] LABS: BLOOD UREA NITROGEN 12 MG/DL (7-18); CALCIUM LEVEL 9.1 MG/DL (8.5-10.1); CARBON DIOXIDE LEVEL 24 MEQ/L (21-32); CHLORIDE LEVEL 106 MEQ/L (98-107); CREATININE FOR GFR 0.88 MG/DL (0.55-1.30); GLOMERULAR FILTRATION RATE > 60.0 (>60); GLUCOSE, FASTING 174 MG/DL (70-100); POTASSIUM SERUM 4.1 MEQ/L (3.5-5.1); SODIUM LEVEL 138 MEQ/L (136-145)
[2018-09-10] MEDS ORDERED: ISOVUE-370 76% 100ML VIAL (Q9967) As Ordered ONE (00:19)
[2018-09-10 00:56] VITALS: BP 121/60
--- NOTE | 2018-09-10 01:01 | REPVR ---
EXAM: CT Abdomen and Pelvis With Contrast EXAM DATE/TIME: 09/10/2018 12:15 AM CLINICAL HISTORY: 28 years old, female; Abdominal pain; Localized; Right; Additional info: Right abd pain, leukocytosis TECHNIQUE: Imaging protocol: Axial computed tomography images of the abdomen and pelvis with intravenous contrast. Coronal and sagittal reformatted images were created and reviewed. Radiation optimization: All CT scans at this facility use at least one of these dose optimization techniques: automated exposure control; mA and/or kV adjustment per patient size (includes targeted exams where dose is matched to clinical indication); or iterative reconstruction. Contrast material: ISO; Contrast volume: 100 ml; Contrast route: AC; COMPARISON: CT ABD/PEL W/IV CONTRAST ONLY 11/29/2016 2:09 AM FINDINGS: Mediastinum: Mild hiatal hernia. ABDOMEN: Liver: There is fatty infiltration of the liver. The liver at mid clavicular line measures 22.9 cm. Gallbladder and bile ducts: Status post cholecystectomy. Pancreas: Normal. No ductal dilation. Spleen: The spleen measures 12.8 cm. Adrenals: Normal. No mass. Kidneys and ureters: Normal. No hydronephrosis. Stomach and bowel: Normal. No obstruction. No mucosal thickening. Appendix: A normal appendix is seen. PELVIS: Bladder: Unremarkable as visualized. Reproductive: Right ovarian functional cyst measuring 15 mm. ABDOMEN and PELVIS: Intraperitoneal space: Normal. No free air. No significant fluid collection. Bones/joints: No acute fracture. No dislocation. Soft tissues: Small fat filled umbilical hernia. Vasculature: Normal. No abdominal aortic aneurysm. Lymph nodes: Normal. No enlarged lymph nodes. IMPRESSION: 1. Hepatomegaly with fatty infiltration, increased since 11/29/2016. 2. Borderline splenomegaly. 3. Status post cholecystectomy. 4. Mild hiatal hernia. 5. Otherwise negative CT abdomen/pelvis. Electronically signed by: Dean Travis On 09/10/2018 01:00:35 AM
[2018-09-10] MEDS ORDERED: ONDA4TAB6 PO (01:09)
[2018-09-10] MEDS ORDERED: IBUP-1022 PO (01:09)
== END 2018-09-10 01:14 | disposition home or self-care (01) ==
LOC: M ED 23:00
DX: K76.0 Fatty (change of) liver, not elsewhere classified (principal); R10.31 Right lower quadrant pain; R11.0 Nausea; K44.9 Diaphragmatic hernia without obstruction or gangrene; G43.909 Migraine, unspecified, not intractable, without status migrainosus; K21.9 Gastro-esophageal reflux disease without esophagitis; M54.2 Cervicalgia; F17.210 Nicotine dependence, cigarettes, uncomplicated; Z79.899 Other long term (current) drug therapy
CPT/HCPCS: 74177; 80048; 81001; 84702; 85025; 96361; 96374; 96375; 99284; J1885; J2405; Q9967

== ENCOUNTER → 2018-09-12 | Outpatient (REF) | payer OTHER ==
[~2018-09-12] MED LIST changes: +IBUP-1022 PO; +LEXA1TAB PO; +ONDA4TAB6 PO
== END ==
LOC: M SFHCPLAZ 12:44
PROVIDERS: ATTEND Nurse Practitioner Family
DX: K76.0 Fatty (change of) liver, not elsewhere classified (principal)

== ENCOUNTER 2018-10-03 19:26 | Emergency (ER) | payer OTHER ==
[~2018-10-03] VITALS: Ht 152.4 cm; Wt 104.5 kg
[2018-10-03] MEDS ORDERED: AMOX500C PO (19:38)
[2018-10-03] MEDS ORDERED: TRAM50TA2 PO (23:42)
[2018-10-03 23:45] VITALS: BP 160/100
[2018-10-03] MEDS ORDERED: traMADol 50 MG TAB (BULK 4 TAB ED) PO ONE (23:45)
== END 2018-10-03 23:48 | disposition home or self-care (01) ==
LOC: M ED 19:26
DX: K02.9 Dental caries, unspecified (principal); Z79.899 Other long term (current) drug therapy; F17.210 Nicotine dependence, cigarettes, uncomplicated

== ENCOUNTER 2018-10-06 07:09 | Day surgery (SDC) | payer OTHER ==
[~2018-10-06] VITALS: Ht 152.4 cm; Wt 99.8 kg
[~2018-10-06 07:09] MED LIST changes: +AMOX500C PO; +MIDAZOLAM INJ 2 MG/2 ML VIAL (J2250) As Ordered ONE; +TRAM50TA2 PO; +fentaNYL 100 MCG/2 ML INJECTION (J3010) As Ordered ONE
[2018-10-06] MEDS ORDERED: PROPOFOL 200 MG/20 ML VIAL As Ordered ONE (07:10)
[2018-10-06] MEDS ORDERED: LR 1,000 ML IV SCH ×3 (07:15→11:30)
[2018-10-06] MEDS ORDERED: dexameTHASONE 4 MG/ML 1ML VIAL (J1100) IV ONE (07:30)
[2018-10-06] MEDS ORDERED: SCOPOLAMINE 1MG TRANSDERMAL PATCH TOP ONE (07:30)
[2018-10-06 07:59] LABS: URINE PREG TEST NEGATIVE (NEGATIVE)
[2018-10-06] MEDS ORDERED: REMIFENTANIL 1MG 3ML VIAL As Ordered ONE (08:46)
[2018-10-06] MEDS ORDERED: ROCURONIUM BROMIDE 50 MG/5 ML VIAL As Ordered ONE (08:50)
[2018-10-06] MEDS ORDERED: LIDOCAINE 2% INJ 100 MG/5 ML SDV (FOR ANES.) As Ordered ONE (08:50)
[2018-10-06] MEDS ORDERED: OMEPRAZOLE 20 MG CAP PO SCH (09:00)
[2018-10-06] MEDS ORDERED: METHYLENE BLUE 0.5% (5MG/ML) 10 ML AMP (PROVAYBLUE)(Q9968 PER 1MG) As Ordered ONE (09:38)
[2018-10-06] MEDS ORDERED: LIDOCAINE W/EPINEPHRINE 1% 20ML VIAL As Ordered ONE (09:38)
[2018-10-06] MEDS ORDERED: OXYMETAZOLINE NASAL SPRAY (AFRIN) As Ordered ONE (09:38)
[2018-10-06] MEDS ORDERED: dexameTHASONE 4 MG/ML 1ML VIAL (J1100) As Ordered ONE (09:45)
[2018-10-06] MEDS ORDERED: ONDANSETRON 4MG/2ML VIAL (J2405) As Ordered ONE (09:45)
[2018-10-06] MEDS ORDERED: SUCCINYLCHOLINE 100 MG/5 ML SYRINGE (J0330) As Ordered ONE (09:57)
[2018-10-06] MEDS ORDERED: SUGAMMADEX SODIUM 500 MG/5 ML VIAL (BRIDION) As Ordered ONE (10:39)
[2018-10-06] MEDS: PERCOCET 5MG/325MG TAB PO PRN ×2 (11:30→12:05)
[2018-10-06] MEDS ORDERED: ONDANSETRON 4MG/2ML VIAL (J2405) IV PRN (11:30)
[2018-10-06 12:35] VITALS: BP 126/60
== END 2018-10-06 12:45 | disposition home or self-care (01) ==
LOC: M SDC 07:09
PROVIDERS: ATTEND Otolaryngology
DX: J38.3 Other diseases of vocal cords (principal); K44.9 Diaphragmatic hernia without obstruction or gangrene; F41.9 Anxiety disorder, unspecified; F32.9 Major depressive disorder, single episode, unspecified; Z79.899 Other long term (current) drug therapy; F17.210 Nicotine dependence, cigarettes, uncomplicated
CPT/HCPCS: 31536; 84703; 88305; J0330; J1100; J2250; J2405; J3010; Q9968

== ENCOUNTER 2018-12-15 20:15 | Emergency (ER) | payer OTHER, SELFPAY ==
[~2018-12-15] VITALS: Ht 152.4 cm; Wt 97.7 kg
[~2018-12-15 20:15] MED LIST changes: -MIDAZOLAM INJ 2 MG/2 ML VIAL (J2250) As Ordered ONE; -fentaNYL 100 MCG/2 ML INJECTION (J3010) As Ordered ONE
[2018-12-16] MEDS ORDERED: METOCLOPRAMIDE 10 MG TAB PO ONE (00:15)
[2018-12-16] MEDS ORDERED: IBUPROFEN 600 MG TAB PO ONE (00:15)
[2018-12-16] MEDS ORDERED: IPRATROPIUM 0.5MG/ALBUTEROL 2.5MG INH SOL UD 3ML (DUONEB)(J7620) NEB ONE (00:15)
[2018-12-16 00:57] VITALS: BP 90/46
[2018-12-16] MEDS ORDERED: AZITHROMYCIN 250 MG TAB PO ONE (01:15)
[2018-12-16] MEDS ORDERED: PSEU120T19 PO (01:15)
[2018-12-16] MEDS ORDERED: FLON1SPR NARES (01:15)
[2018-12-16] MEDS ORDERED: AZIT-12 PO (01:15)
[2018-12-16] MEDS ORDERED: ALBUTEROL 90 MCG/ACT 8GM HFA INHALER INH ONE (01:15)
[2018-12-16] MEDS ORDERED: PROAAER10 INH (01:15)
--- NOTE | 2018-12-16 07:31 | REP ---
PA and lateral chest: There are no comparisons. The lung brandon are clear. The cardiac size is normal. The tanja, mediastinum, and skeletal structures are unremarkable. Impression: Negative PA and lateral chest. Electronically Signed by Josh Reyna MD 12/16/2018 07:22 A
== END 2018-12-16 01:30 | disposition home or self-care (01) ==
LOC: M ED 20:15
DX: J18.9 Pneumonia, unspecified organism (principal); K21.9 Gastro-esophageal reflux disease without esophagitis; Z79.899 Other long term (current) drug therapy; F17.210 Nicotine dependence, cigarettes, uncomplicated

== ENCOUNTER 2018-12-21 07:00 | Emergency (ER) | payer OTHER ==
[~2018-12-21] VITALS: Ht 152.4 cm; Wt 97.7 kg
[~2018-12-21 07:00] MED LIST changes: +AZIT-12 PO; +PROAAER10 INH; +PSEU120T19 PO
[2018-12-21] MEDS ORDERED: IPRATROPIUM 0.5MG/ALBUTEROL 2.5MG INH SOL UD 3ML (DUONEB)(J7620) NEB ONE (07:30)
[2018-12-21] MEDS ORDERED: SYMB16INH INH (09:09)
[2018-12-21 09:16] VITALS: BP 136/92
--- NOTE | 2018-12-21 12:03 | REP ---
Clinical: Dyspnea and history of atypical pneumonia . Comparison: 12/16/2018 . Technique: PA and lateral. Findings: The mediastinum and cardiac silhouette are normal. The lung brandon are clear and without acute consolidation, effusion, or pneumothorax. The skeletal structures are intact and normal. Impression: 1. No acute cardiopulmonary process. Electronically Signed by Rahul Whipple MD 12/21/2018 07:36 A
== END 2018-12-21 09:35 | disposition home or self-care (01) ==
LOC: M ED 07:00
DX: J20.9 Acute bronchitis, unspecified (principal); Z72.0 Tobacco use; Z79.899 Other long term (current) drug therapy

== ENCOUNTER 2019-03-01 11:56 | Emergency (ER) | payer OTHER, SELFPAY ==
[~2019-03-01] VITALS: Ht 157.5 cm; Wt 93.9 kg
[~2019-03-01 11:56] MED LIST changes: -OMEP40CA2 PO; +OMEP40CA97 PO; +SYMB16INH INH
[2019-03-01 11:57] VITALS: BP 147/85
[2019-03-01] MEDS ORDERED: SING10TA32 PO (12:02)
[2019-03-01 14:11] LABS: URINE PREG TEST NEGATIVE (NEGATIVE)
[2019-03-01] MEDS ORDERED: PYRI1TAB5 PO (14:15)
[2019-03-01] MEDS ORDERED: MACR100C43 PO (14:15)
== END 2019-03-01 14:19 | disposition home or self-care (01) ==
LOC: M ED 11:56
DX: N39.0 Urinary tract infection, site not specified (principal); K44.9 Diaphragmatic hernia without obstruction or gangrene; G43.909 Migraine, unspecified, not intractable, without status migrainosus; F41.9 Anxiety disorder, unspecified; F17.200 Nicotine dependence, unspecified, uncomplicated

== ENCOUNTER 2019-03-05 14:40 | Emergency (ER) | payer OTHER ==
[~2019-03-05] VITALS: Ht 157.5 cm; Wt 95.9 kg
[~2019-03-05 14:40] MED LIST changes: +MACR100C43 PO; +PYRI1TAB5 PO; +SING10TA32 PO
--- NOTE | 2019-03-05 16:35 | REP ---
Right hand four views : There is no fracture or dislocation. Mineralization and joint spaces are normal. There are no calcifications or foreign bodies. Impression: Negative right hand . Electronically Signed by Josh Reyna MD 03/05/2019 04:26 P
[2019-03-05 16:42] VITALS: BP 134/80
== END 2019-03-05 16:44 | disposition home or self-care (01) ==
LOC: M ED 14:40
DX: S67.41XA Crushing injury of right wrist and hand, initial encounter (principal); Y04.8XXA Assault by other bodily force, initial encounter; Y92.89 Other specified places as the place of occurrence of the external cause; Y93.F9 Activity, other caregiving; Y99.0 Civilian activity done for income or pay; J45.909 Unspecified asthma, uncomplicated; R51 Headache; F17.210 Nicotine dependence, cigarettes, uncomplicated; Z79.899 Other long term (current) drug therapy; Z79.51 Long term (current) use of inhaled steroids

== ENCOUNTER 2019-03-31 08:49 | Emergency (ER) | payer OTHER, SELFPAY ==
[~2019-03-31] VITALS: Ht 157.5 cm; Wt 96.7 kg
[2019-03-31 08:49] VITALS: BP 137/88
[2019-03-31] MEDS ORDERED: CIPRHCOTIC OTIC (09:40)
== END 2019-03-31 10:07 | disposition home or self-care (01) ==
LOC: M ED 08:49
DX: H60.92 Unspecified otitis externa, left ear (principal); J45.909 Unspecified asthma, uncomplicated; F33.9 Major depressive disorder, recurrent, unspecified; G43.909 Migraine, unspecified, not intractable, without status migrainosus; Z79.899 Other long term (current) drug therapy; F17.210 Nicotine dependence, cigarettes, uncomplicated

== ENCOUNTER 2019-04-07 16:09 | Emergency (ER) | payer OTHER ==
[~2019-04-07] VITALS: Ht 152.4 cm; Wt 97.1 kg
[~2019-04-07 16:09] MED LIST changes: +CIPRHCOTIC OTIC
[2019-04-07] MEDS ORDERED: ALL10TAB29 (16:16)
[2019-04-07] MEDS ORDERED: KETO2CR TOP (17:57)
[2019-04-07 18:04] VITALS: BP 140/86
== END 2019-04-07 18:34 | disposition home or self-care (01) ==
LOC: M ED 16:09
DX: B35.3 Tinea pedis (principal); J45.909 Unspecified asthma, uncomplicated; F33.9 Major depressive disorder, recurrent, unspecified; F41.9 Anxiety disorder, unspecified; K21.9 Gastro-esophageal reflux disease without esophagitis; G43.909 Migraine, unspecified, not intractable, without status migrainosus; F17.210 Nicotine dependence, cigarettes, uncomplicated

== ENCOUNTER 2019-04-16 09:58 | Emergency (ER) | payer OTHER ==
[~2019-04-16] VITALS: Ht 152.4 cm; Wt 95.5 kg
[~2019-04-16 09:58] MED LIST changes: +ALL10TAB29; +KETO2CR TOP
[2019-04-16] MEDS ORDERED: predniSONE 20 MG TAB PO ONE (10:45)
[2019-04-16] MEDS: LEVALBUTEROL 1.25 MG/0.5 ML CONCENTRATE NEB INH PRN ×2 (10:58→11:05)
[2019-04-16 11:41] VITALS: BP 132/68
[2019-04-16] MEDS ORDERED: PRED20TA PO (11:41)
[2019-04-16] MEDS ORDERED: AUGM875T28 PO (11:41)
[2019-04-16] MEDS ORDERED: AUGMENTIN 875 MG TAB PO ONE (11:45)
--- NOTE | 2019-04-16 13:13 | REP ---
REASON: Chest pain. COMPARISON: 10/21/2018 FINDINGS: The superior mediastinal structures are midline. The cardiac silhouette is unremarkable in size, shape, and position. The diaphragmatic surfaces of the lungs are regular, and the costophrenic angles are clear. The pulmonary brandon are clear. The imaged osseous structures are intact. IMPRESSION: There is no acute cardiopulmonary disease. Electronically Signed by Prakash Wyatt DO 04/16/2019 02:08 P
--- NOTE | 2019-04-17 08:29 | ECGEPIP ---
[facility] - ED Test Date: 2019-04-16 Pat Name: BOGDAN DE LA ROSA Department: Room: - Gender: Female Orthophotography Technician: nikolas : 1990 Requested By: GLENDY YATES Order Number: [id number] Reading MD: Casey Robledo Measurements Intervals [place] Rate: 70 P: 46 DE: 158 QRS: 56 QRSD: 89 T: 41 QT: 368 QTc: 398 Interpretive Statements SINUS RHYTHM WITH MARKED SINUS ARRHYTHMIA NO PRIORS FOR COMPARISON Electronically Signed on 04-17-2019 8:28:53 EST by Casey Robledo
== END 2019-04-16 11:46 | disposition home or self-care (01) ==
LOC: M ED 09:58
DX: J45.998 Other asthma (principal); F33.9 Major depressive disorder, recurrent, unspecified; F41.9 Anxiety disorder, unspecified; G43.909 Migraine, unspecified, not intractable, without status migrainosus; Z79.899 Other long term (current) drug therapy; F17.210 Nicotine dependence, cigarettes, uncomplicated

== ENCOUNTER 2019-04-20 15:51 | Emergency (ER) | payer OTHER ==
[~2019-04-20] VITALS: Ht 152.4 cm; Wt 95.5 kg
[~2019-04-20 15:51] MED LIST changes: +AUGM875T28 PO; +PRED20TA PO
[2019-04-20 18:42] LABS: BASO # 0.1 10^3/uL (0.0-0.2); BASO % 0.4 % (0.0-1.0); EOS # 0.2 10^3/uL (0.0-0.5); EOS % 1.5 % (0.0-3.0); HEMATOCRIT 39.7 % (36.0-47.0); LYMPH # 1.9 10^3/uL (1.5-5.0); LYMPH % 15.8 % (24.0-44.0); MEAN CORPUSCULAR HEMOGLOBIN 29.3 pg (27.0-33.0); MEAN CORPUSCULAR HGB CONC 32.7 g/dl (32.0-36.5); MEAN CORPUSCULAR VOLUME 89.6 fl (80.0-96.0); MONO # 1.1 10^3/uL (0.0-0.8); MONO % 8.9 % (0.0-5.0); NEUTROPHILS # 8.9 10^3/uL (1.5-8.5); NEUTROPHILS % 72.9 % (36.0-66.0); PLATELET COUNT, AUTOMATED 203 10^3/uL (150-450); RED BLOOD COUNT 4.43 10^6/uL (4.00-5.40); WHITE BLOOD COUNT 12.2 10^3/uL (4.0-10.0)
[2019-04-20 19:04] LABS: BLOOD UREA NITROGEN 9 MG/DL (7-18); CALCIUM LEVEL 8.5 MG/DL (8.5-10.1); CARBON DIOXIDE LEVEL 25 MEQ/L (21-32); CHLORIDE LEVEL 106 MEQ/L (98-107); CREATININE FOR GFR 0.93 MG/DL (0.55-1.30); GLOMERULAR FILTRATION RATE > 60.0 (>60); GLUCOSE, FASTING 90 MG/DL (70-100); NT-PRO BNP 19 PG/ML (<125); POTASSIUM SERUM 4.4 MEQ/L (3.5-5.1); SODIUM LEVEL 138 MEQ/L (136-145)
[2019-04-20] MEDS: IPRATROPIUM 0.5MG/ALBUTEROL 2.5MG INH SOL UD 3ML (DUONEB)(J7620) NEB PRN ×3 (20:05→21:01)
[2019-04-20 20:43] LABS: INFLUENZA A AMPLIFICATION NEGATIVE (NEGATIVE); INFLUENZA B AMPLIFICATION NEGATIVE (NEGATIVE)
[2019-04-20] MEDS ORDERED: BENZONATATE 100 MG CAP PO ONE (21:15)
[2019-04-20] MEDS ORDERED: DOXYCYCLINE HYCLATE 100 MG TAB PO ONE (21:15)
[2019-04-20] MEDS ORDERED: PROAAER10 INH (21:40)
[2019-04-20] MEDS ORDERED: DOXY100C37 PO (21:40)
[2019-04-20] MEDS ORDERED: TESS100C PO (21:40)
[2019-04-20 21:52] VITALS: BP 139/91
--- NOTE | 2019-04-21 07:10 | REP ---
CHEST, TWO VIEWS: Two views of the chest are performed. Infiltrate is seen posteriorly inferiorly on the lateral view, probably on the right side. No other abnormal parenchymal opacities are seen. The heart is normal in size and the mediastinal silhouette is unremarkable. IMPRESSION: Lower lobe infiltrate, probably on the right. Electronically Signed by Josh Salazar MD 04/21/2019 05:08 P
== END 2019-04-20 22:11 | disposition home or self-care (01) ==
LOC: M ED 15:51
DX: J18.1 Lobar pneumonia, unspecified organism (principal); J06.9 Acute upper respiratory infection, unspecified; J45.909 Unspecified asthma, uncomplicated; K21.9 Gastro-esophageal reflux disease without esophagitis; F17.200 Nicotine dependence, unspecified, uncomplicated; Z79.2 Long term (current) use of antibiotics; Z79.51 Long term (current) use of inhaled steroids; Z79.52 Long term (current) use of systemic steroids

== ENCOUNTER → 2019-05-30 | Outpatient (CLI) | payer OTHER ==
[~2019-05-30] MED LIST changes: +DOXY100C37 PO; +ONDA-83 PO; -ONDA4TAB5 PO; +TESS100C PO
[2019-05-30 15:21] LABS: HEMATOCRIT 40.7 % (36.0-47.0); HEMOGLOBIN 13.6 g/dl (12.0-15.5); MEAN CORPUSCULAR HGB CONC 33.4 g/dl (32.0-36.5); MEAN CORPUSCULAR VOLUME 89.6 fl (80.0-96.0); PLATELET COUNT, AUTOMATED 250 10^3/uL (150-450); RED BLOOD COUNT 4.54 10^6/uL (4.00-5.40); WHITE BLOOD COUNT 11.1 10^3/uL (4.0-10.0)
[2019-05-30 15:53] LABS: ALBUMIN 4.2 GM/DL (3.2-5.2); ALT/SGPT 34 U/L (12-78); BILIRUBIN,DIRECT 0.2 MG/DL (0.0-0.2); BILIRUBIN,TOTAL 0.6 MG/DL (0.2-1.0); BLOOD UREA NITROGEN 11 MG/DL (7-18); CALCIUM LEVEL 9.9 MG/DL (8.5-10.1); CARBON DIOXIDE LEVEL 29 MEQ/L (21-32); CHLORIDE LEVEL 104 MEQ/L (98-107); GLOMERULAR FILTRATION RATE > 60.0 (>60); GLUCOSE, FASTING 112 MG/DL (70-100); PHOSPHORUS LEVEL 4.1 MG/DL (2.5-4.9); POTASSIUM SERUM 3.9 MEQ/L (3.5-5.1); SODIUM LEVEL 139 MEQ/L (136-145); TOTAL PROTEIN 7.5 GM/DL (6.4-8.2)
== END ==
LOC: M LAB 14:11
PROVIDERS: ATTEND Podiatrist Foot & Ankle Surgery
DX: Z79.899 Other long term (current) drug therapy (principal); B35.1 Tinea unguium

== ENCOUNTER 2019-06-26 06:57 | Emergency (ER) | payer OTHER, SELFPAY ==
[~2019-06-26] VITALS: Ht 152.4 cm; Wt 96.7 kg
[~2019-06-26 06:57] MED LIST changes: -LIDO1SOL8 PO; +LIDO2SOL17 PO
[2019-06-26] MEDS ORDERED: ONDANSETRON 4 MG ORAL DISINTEGRATING TAB (Q0162 PER 1MG) PO ONE (07:30)
[2019-06-26 08:05] LABS: INFLUENZA A AMPLIFICATION NEGATIVE (NEGATIVE); INFLUENZA B AMPLIFICATION NEGATIVE (NEGATIVE)
--- NOTE | 2019-06-26 08:06 | REP ---
Chest x-ray: Two views. History: Cough times 1.5 months. Comparison chest x-ray April 20, 2019. Findings: The left lower lobe infiltrate noted on the comparison study has resolved. No new infiltrate is seen. Lung brandon are clear. Pleural angles are sharp. Cardiomediastinal silhouette is unremarkable. No significant bony abnormality is seen. Impression: No active disease. Electronically Signed by Tacos London MD 06/26/2019 07:58 A
[2019-06-26] MEDS ORDERED: ZOFR4TAB16 PO (08:25)
[2019-06-26 08:32] VITALS: BP 129/71
== END 2019-06-26 08:33 | disposition home or self-care (01) ==
LOC: M ED 06:57
DX: R11.10 Vomiting, unspecified (principal); Z79.899 Other long term (current) drug therapy
CPT/HCPCS: 71046; 80047; 84702; 87502; 99283; Q0162

== ENCOUNTER 2019-08-28 14:12 | Emergency (ER) | payer OTHER, SELFPAY ==
[~2019-08-28] VITALS: Ht 165.1 cm; Wt 105.1 kg
[~2019-08-28 14:12] MED LIST changes: +ZOFR4TAB16 PO
--- NOTE | 2019-08-28 15:16 | REP ---
RIGHT HAND, FOUR VIEWS: There is no evidence of an acute fracture, dislocation or intrinsic bone disease. IMPRESSION: No fracture or dislocation. Electronically Signed by Josh Salazar MD 08/28/2019 04:00 P
[2019-08-28 16:36] VITALS: BP 137/82
== END 2019-08-28 16:48 | disposition home or self-care (01) ==
LOC: M ED 14:12
DX: M79.644 Pain in right finger(s) (principal); Z79.899 Other long term (current) drug therapy; Z79.51 Long term (current) use of inhaled steroids

== ENCOUNTER 2019-10-01 15:45 | Emergency (ER) | payer OTHER ==
[~2019-10-01] VITALS: Ht 152.4 cm; Wt 103.7 kg
[2019-10-01] MEDS ORDERED: PANTOPRAZOLE 40MG VIAL (C9113 PER 1) IV ONE (16:15)
[2019-10-01] MEDS ORDERED: GI COCKTAIL 50ML BTL(HYOSCYAMINE/MAALOX/LIDOCAINE VISCOUS)(1:3:1) PO ONE (16:15)
[2019-10-01 16:32] LABS: BASO % 0.5 % (0.0-1.0); EOS # 0.2 10^3/uL (0.0-0.5); EOS % 2.4 % (0.0-3.0); HEMOGLOBIN 13.2 g/dl (12.0-15.5); LYMPH # 2.4 10^3/uL (1.5-5.0); LYMPH % 28.7 % (24.0-44.0); MEAN CORPUSCULAR HEMOGLOBIN 29.2 pg (27.0-33.0); MEAN CORPUSCULAR HGB CONC 33.8 g/dl (32.0-36.5); MEAN CORPUSCULAR VOLUME 86.3 fl (80.0-96.0); MONO # 0.5 10^3/uL (0.0-0.8); MONO % 6.4 % (0.0-5.0); NEUTROPHILS # 5.2 10^3/uL (1.5-8.5); NEUTROPHILS % 61.3 % (36.0-66.0); RED BLOOD COUNT 4.52 10^6/uL (4.00-5.40); WHITE BLOOD COUNT 8.5 10^3/uL (4.0-10.0)
[2019-10-01 16:48] LABS: HCG, SERUM QUALITATIVE NEGATIVE (NEGATIVE)
[2019-10-01 16:55] LABS: ALBUMIN 3.7 GM/DL (3.2-5.2); ALT/SGPT 91 U/L (12-78); BILIRUBIN,DIRECT 0.1 MG/DL (0.0-0.2); BILIRUBIN,TOTAL 0.6 MG/DL (0.2-1.0); BLOOD UREA NITROGEN 10 MG/DL (7-18); CALCIUM LEVEL 9.7 MG/DL (8.5-10.1); CARBON DIOXIDE LEVEL 24 MEQ/L (21-32); CHLORIDE LEVEL 105 MEQ/L (98-107); CREATININE FOR GFR 0.88 MG/DL (0.55-1.30); GLOMERULAR FILTRATION RATE > 60.0 (>60); GLUCOSE, FASTING 111 MG/DL (70-100); LIPASE 165 U/L (73-393); POTASSIUM SERUM 3.6 MEQ/L (3.5-5.1); SODIUM LEVEL 139 MEQ/L (136-145); TOTAL PROTEIN 7.1 GM/DL (6.4-8.2)
--- NOTE | 2019-10-01 17:10 | REP ---
Clinical: Shortness of breath . Comparison: 06/26/2019 . Technique: PA and lateral. Findings: The mediastinum and cardiac silhouette are normal. The lung brandon are clear and without acute consolidation, effusion, or pneumothorax. The skeletal structures are intact and normal. Impression: 1. No acute cardiopulmonary process. Electronically Signed by Rahul Whipple MD 10/01/2019 05:01 P
[2019-10-01] MEDS ORDERED: ISOVUE-370 76% 100ML VIAL As Ordered ONE (17:28)
--- NOTE | 2019-10-01 18:06 | REPVR ---
PROCEDURE INFORMATION: Exam: CT Abdomen And Pelvis With Contrast Exam date and time: 10/01/2019 5:26 PM Age: 29 years old Clinical indication: Abdominal pain; Epigastric; Additional info: Epigastric pain TECHNIQUE: Imaging protocol: Computed tomography of the abdomen and pelvis with intravenous contrast. Radiation optimization: All CT scans at this facility use at least one of these dose optimization techniques: automated exposure control; mA and/or kV adjustment per patient size (includes targeted exams where dose is matched to clinical indication); or iterative reconstruction. Contrast material: ISOVUE 370; Contrast volume: 100 ml; Contrast route: IV; COMPARISON: CT ABD/PEL W/IV CONTRAST ONLY 09/10/2018 12:15 AM FINDINGS: Mediastinal space: Small hiatal hernia. Liver: Fatty infiltration of the liver. Liver is enlarged and measures 22 cm. Gallbladder and bile ducts: Cholecystectomy clips. Pancreas: Normal. No ductal dilation. Spleen: Normal. No splenomegaly. Adrenals: Normal. No mass. Kidneys and ureters: Normal. No hydronephrosis. Stomach and bowel: Unremarkable. No obstruction. No mucosal thickening. Appendix: No evidence of appendicitis. Intraperitoneal space: Unremarkable. No free air. No significant fluid collection. Vasculature: Unremarkable. No abdominal aortic aneurysm. Lymph nodes: Unremarkable. No enlarged lymph nodes. Bladder: Unremarkable as visualized. Reproductive: 1.7 cm cyst in the left ovary. Bones/joints: Unremarkable. No acute fracture. Soft tissues: Unremarkable. IMPRESSION: Hepatomegaly with hepatic steatosis. Small hiatal hernia. Electronically signed by: Tyree Allen On 10/01/2019 18:05:53 PM
[2019-10-01 18:34] VITALS: BP 127/71
== END 2019-10-01 18:35 | disposition home or self-care (01) ==
LOC: M ED 15:45
DX: K44.9 Diaphragmatic hernia without obstruction or gangrene (principal); J45.909 Unspecified asthma, uncomplicated; F33.9 Major depressive disorder, recurrent, unspecified; F41.9 Anxiety disorder, unspecified; Z79.899 Other long term (current) drug therapy; F17.210 Nicotine dependence, cigarettes, uncomplicated
CPT/HCPCS: 36415; 71046; 74177; 80048; 80076; 83690; 84703; 85025; 96374; 99284; C9113; Q9967

== ENCOUNTER 2020-01-22 06:05 | Emergency (ER) | payer OTHER ==
[~2020-01-22] VITALS: Ht 152.4 cm; Wt 103.5 kg
[~2020-01-22 06:05] MED LIST changes: -ALL10TAB29; +CETI-24
[2020-01-22 06:06] VITALS: BP 132/90
== END 2020-01-22 07:35 | disposition home or self-care (01) ==
LOC: M ED 06:05
DX: J06.9 Acute upper respiratory infection, unspecified (principal); B34.9 Viral infection, unspecified; Z20.828 Contact with and (suspected) exposure to other viral communicable diseases; J45.909 Unspecified asthma, uncomplicated; G43.909 Migraine, unspecified, not intractable, without status migrainosus; F41.9 Anxiety disorder, unspecified; F33.9 Major depressive disorder, recurrent, unspecified; F17.200 Nicotine dependence, unspecified, uncomplicated
CPT/HCPCS: 87880; 99283; U0003

== ENCOUNTER 2020-04-26 20:36 | Emergency (ER) | payer OTHER ==
[~2020-04-26] VITALS: Ht 152.4 cm; Wt 101.7 kg
[2020-04-26] MEDS ORDERED: IBUPROFEN 600MG TAB PO ONE (21:15)
--- NOTE | 2020-04-26 21:42 | REPVR ---
PROCEDURE INFORMATION: Exam: XR Thoracic Spine, 3 Views Exam date and time: 04/26/2020 9:19 PM Age: 30 years old Clinical indication: Pain in thoracic spine; Additional info: Mid back pain; Bending injury TECHNIQUE: Imaging protocol: XR of the thoracic spine, 3 views. COMPARISON: No relevant prior studies available. FINDINGS: Bones/joints: No compression fracture noted of the visualized thoracic spine. Very small anterior marginal osteophytes noted in the midthoracic spine. Soft tissues: Unremarkable. Intraperitoneal space: Surgical clips in the right upper quadrant. IMPRESSION: No radiographic evidence of fracture of the thoracic spine. Electronically signed by: Adilene Henry On 04/26/2020 21:42:49 PM
[2020-04-26] MEDS ORDERED: ROBA750T4 PO (21:51)
[2020-04-26] MEDS ORDERED: IBUP-1022 PO (21:51)
[2020-04-26] MEDS ORDERED: methocarbamoL 750 MG TAB PO ONE (22:00)
[2020-04-26 22:39] VITALS: BP 138/84
== END 2020-04-26 22:43 | disposition home or self-care (01) ==
LOC: M ED 20:36
DX: S39.012A Strain of muscle, fascia and tendon of lower back, initial encounter (principal); M62.830 Muscle spasm of back; X50.0XXA Overexertion from strenuous movement or load, initial encounter; Y92.129 Unspecified place in nursing home as the place of occurrence of the external cause; Y93.F2 Activity, caregiving, lifting; Y99.8 Other external cause status; M54.9 Dorsalgia, unspecified; G89.29 Other chronic pain; J45.909 Unspecified asthma, uncomplicated; F17.210 Nicotine dependence, cigarettes, uncomplicated; Z79.899 Other long term (current) drug therapy; Z79.51 Long term (current) use of inhaled steroids

== ENCOUNTER 2020-06-13 08:58 | Emergency (ER) | payer OTHER ==
[~2020-06-13] VITALS: Ht 162.6 cm; Wt 99.9 kg
[~2020-06-13 08:58] MED LIST changes: +ESCI10TA16; -ESCI10TA2; +ROBA750T4 PO
--- OUTSIDE RECORDS SUMMARY | 2020-06-13 09:08 | CCD ---
Author Author [facility] Organization [facility] Address Unknown Phone Unavailable Care Team Providers Care Production Checker Name Role Phone VERÓNICA SCHULTZ MD Unavailable Unavailable VERÓNICA SCHULTZ MD Unavailable Unavailable VERÓNICA SCHULTZ MD Unavailable Unavailable VERÓNICA SCHULTZ MD Unavailable Unavailable VERÓNICA SCHULTZ MD Unavailable Unavailable VERÓNICA SCHULTZ MD Unavailable Unavailable VERÓNICA SCHULTZ MD Unavailable Unavailable CHROSTOWSKIINNAVERÓNICA MD Unavailable Unavailable CHROSTOWSKIINNAVERÓNICA MD Unavailable Unavailable CHROSTOWSKIINNAVERÓNICA MD Unavailable Unavailable CHROSTOWSKIVERÓNICA MD Unavailable Unavailable CHROSTOWSKIVERÓNICA MD Unavailable Unavailable CHROSTOWSKIVERÓNICA MD Unavailable Unavailable CHROSTOWSKIINNAVERÓNICA MD Unavailable Unavailable CHROSTOWSKIINNAVERÓNICA MD Unavailable Unavailable CHROSTOWSKIINNAVERÓNICA MD Unavailable Unavailable CHROSTOWSKIINNAVERÓNICA MD Unavailable Unavailable CHROSTOWSKIINNAVERÓNICA MD Unavailable Unavailable CHROSTOWSKIVERÓNICA MD Unavailable Unavailable CHROSTOWSKIINNAVERÓNICA MD Unavailable Unavailable CHROSTOWSKIINNAVERÓNICA MD Unavailable Unavailable CHROSTOWSKIINNAVERÓNICA MD Unavailable Unavailable CHROSTOWSKIINNAVERÓNICA MD Unavailable Unavailable CHROSTOWSKIVERÓNICA MD Unavailable Unavailable CHROSTOWSKIVERÓNICA MD Unavailable Unavailable CHROSTOWSKIINNAVERÓNICA MD Unavailable Unavailable CHROSTOWSKIINNAVERÓNICA MD Unavailable Unavailable CHROSTOWSKIINNAVERÓNICA MD Unavailable Unavailable CHROSTOWSKIVERÓNICA MD Unavailable Unavailable CHROSTOWSKIINNAVERÓNICA MD Unavailable Unavailable CHROSTOWSKIVERÓNICA MD Unavailable Unavailable CHROSTOWSKIINNAVERÓNICA MD Unavailable Unavailable CHROSTOWSKIINNAVERÓNICA MD Unavailable Unavailable CHROSTOWSKIINNAVERÓNICA MD Unavailable Unavailable CHROSTOWSKIINNAVERÓNICA MD Unavailable Unavailable CHROSTOWSKIINNAVERÓNICA MD Unavailable Unavailable CHROSTOWSKIVERÓNICA MD Unavailable Unavailable CHROSTOWSKIINNAVERÓNICA MD Unavailable Unavailable CHROSTOWSKIINNAVERÓNICA MD Unavailable Unavailable CHROSTOWSKIINNAVERÓNICA MD Unavailable Unavailable Pedro PACHECO DPM Unavailable Unavailable Pedro PACHECO DPM Unavailable Unavailable Pedro PACHECO DPM Unavailable Unavailable Pedro PACHECO DPM Unavailable Unavailable Pedro PACHECO DPM Unavailable Unavailable Pedro PACHECO DPM Unavailable Unavailable TARA R ISHAAN DPM Unavailable Unavailable Pedro PACHECO DPM Unavailable Unavailable Pedro PACHECO DPM Unavailable Unavailable Pedro PACHECO DPM Unavailable Unavailable Pedro PACHECO DPM Unavailable Unavailable Pedro PACHECO DPM Unavailable Unavailable Pedro PACHECO DPM Unavailable Unavailable Pedro PACHECO DPM Unavailable Unavailable Pedro PACHECO DPM Unavailable Unavailable Pedro PACHECO DPM Unavailable Unavailable Pedro PACHECO DPM Unavailable Unavailable MAJAK, R ISHAAN DPM Unavailable Unavailable MAJAK, R ISHAAN DPM Unavailable Unavailable MAJAK, R ISHAAN DPM Unavailable Unavailable MAJAK, R ISHAAN DPM Unavailable Unavailable MAJAK, R ISHAAN DPM Unavailable Unavailable MAJAK, R ISHAAN DPM Unavailable Unavailable MAJAK, R ISHAAN DPM Unavailable Unavailable MAJAK, R ISHAAN DPM Unavailable Unavailable MAJAK, R ISHAAN DPM Unavailable Unavailable MAJAK, R ISHAAN DPM Unavailable Unavailable MAJAK, R ISHAAN DPM Unavailable Unavailable MAJAK, R ISHAAN DPM Unavailable Unavailable MAJAK, R ISHAAN DPM Unavailable Unavailable ABOUGPASTORA, MALIA SAWYER MD Unavailable Unavailable ABOUGOU, MALIA SAWYER MD Unavailable Unavailable ABOUGOU, MALIA SAWYER MD Unavailable Unavailable ABOUGOU, MALIA SAWYER MD Unavailable Unavailable ABOUGOU, MALIA SAWYER MD Unavailable Unavailable ABOUGOU, MALIA SAWYER MD Unavailable Unavailable ABOUGOUMALIA MD Unavailable Unavailable ABOUGOUMALIA MD Unavailable Unavailable ABOUGOU, MALIA SAWYER MD Unavailable Unavailable ABOUGOUMALIA MD Unavailable Unavailable ABOUGOUMALIA MD Unavailable Unavailable ABOUGOUMALIA MD Unavailable Unavailable ABOUGOUMALIA MD Unavailable Unavailable ABOUGOUMALIA MD Unavailable Unavailable ABOUGOUMALIA MD Unavailable Unavailable ABOUGOUMALIA MD Unavailable Unavailable ABOUGOUMALIA MD Unavailable Unavailable ABOUGMALIA GUILLORY MD Unavailable Unavailable ABOUGMALIA GUILLORY MD Unavailable Unavailable ABOUGMALIA GUILLORY MD Unavailable Unavailable ABOUGOUMALIA MD Unavailable Unavailable ABOUGOUMALIA MD Unavailable Unavailable ABOUGOUMALIA MD Unavailable Unavailable ABOUGMALIA GUILLORY MD Unavailable Unavailable ABOUGMALIA GUILLORY MD Unavailable Unavailable ABOUGOUMALIA MD Unavailable Unavailable ABOUGOUMALIA MD Unavailable Unavailable ABOUGMALIA GUILLORY MD Unavailable Unavailable ABOUGMALIA GUILLORY MD Unavailable Unavailable ABOUGMALIA GUILLORY MD Unavailable Unavailable ABOUGMALIA GUILLORY MD Unavailable Unavailable Jermaine Zapata MD Unavailable Unavailable Jermaine Zapata MD Unavailable Unavailable Jermaine Zapata MD Unavailable Unavailable HeJermaine blanco MD Unavailable Unavailable HeitJermaine fernandez MD Unavailable Unavailable HeJermaine blanco MD Unavailable Unavailable HeJermaine blanco MD Unavailable Unavailable Heitrebecca, Jermaine Ruiz MD Unavailable Unavailable Heitrebecca, Jermaine Ruiz MD Unavailable Unavailable HeJermaine blanco MD Unavailable Unavailable HeJermaine blanco MD Unavailable Unavailable HeJermaine blanco MD Unavailable Unavailable Hebella, Jermaine Ruiz MD Unavailable Unavailable Heitrebecca, Jermaine Ruiz MD Unavailable Unavailable Heitner, Jermaine Ruiz MD Unavailable Unavailable Heitner, Jermaine Ruiz MD Unavailable Unavailable Heitrebecca, Jermaine Ruiz MD Unavailable Unavailable Heitrebecca, Jermaine Ruiz MD Unavailable Unavailable Heitner, Jermaine Ruiz MD Unavailable Unavailable Heitner, Jermaine Ruiz MD Unavailable Unavailable Hebella, Jermaine Ruiz MD Unavailable Unavailable Hebella, Jermaine Ruiz MD Unavailable Unavailable Hebella, Jermaine Ruiz MD Unavailable Unavailable Jermaine Zapata MD Unavailable Unavailable Jermaine Zapata MD Unavailable Unavailable HeJermaine blanco MD Unavailable Unavailable Mishra, M Barratt PA Unavailable Unavailable Mishra, M Barratt PA Unavailable Unavailable Mishra, M Barratt PA Unavailable Unavailable Mishra, M Barratt PA Unavailable Unavailable Mishra, M Barratt PA Unavailable Unavailable Mishra, M Barratt PA Unavailable Unavailable Mishra, M Barratt PA Unavailable Unavailable Mishra, M Barratt PA Unavailable Unavailable Mishra, M Barratt PA Unavailable Unavailable Mishra, M Barratt PA Unavailable Unavailable Mishra, M Barratt PA Unavailable Unavailable Mishra, M Barratt PA Unavailable Unavailable Mishra, M Barratt PA Unavailable Unavailable Mishra, M Barratt PA Unavailable Unavailable Mishra, M Barratt PA Unavailable Unavailable Mishra, M Barratt PA Unavailable Unavailable Mishra, M Barratt PA Unavailable Unavailable Mishra, M Barratt PA Unavailable Unavailable Mishra, M Barratt PA Unavailable Unavailable Mishra, M Barratt PA Unavailable Unavailable Mishra, M Barratt PA Unavailable Unavailable Mishra, M Barratt PA Unavailable Unavailable Mishra, M Barratt PA Unavailable Unavailable Mishra, M Barratt PA Unavailable Unavailable Mishra, M Barratt PA Unavailable Unavailable Mishra, M Barratt PA Unavailable Unavailable Mishra, M Barratt PA Unavailable Unavailable VIVIEN MEDRANO MD Unavailable Unavailable VIVIEN MEDRANO MD Unavailable Unavailable VIVIEN MEDRANO MD Unavailable Unavailable AMERNATH, BETTYEAPPA MD Unavailable Unavailable AMERNATH, LINGAPPA MD Unavailable Unavailable AMERNATH, BETTYEAPPA MD Unavailable Unavailable AMERNATH, BETTYEAPPA MD Unavailable Unavailable AMERNATH, BETTYEAPPA MD Unavailable Unavailable AMERNATH, BETTYEAPPA MD Unavailable Unavailable AMERNATH, BETTYEAPPA MD Unavailable Unavailable AMERNATH, LINGAPPA MD Unavailable Unavailable AMERNATH, BETTYEAPPA MD Unavailable Unavailable Clintwood, L Elissa DIRECTOR OF PSYCHOLOGY Unavailable Unavailable Georgie, L Elissa DIRECTOR OF PSYCHOLOGY Unavailable Unavailable Clintwood, L Elissa DIRECTOR OF PSYCHOLOGY Unavailable Unavailable Clintwood, L Elissa DIRECTOR OF PSYCHOLOGY Unavailable Unavailable Georgie, L Elissa DIRECTOR OF PSYCHOLOGY Unavailable Unavailable Georgie, L Elissa DIRECTOR OF PSYCHOLOGY Unavailable Unavailable Clintwood, L Elissa DIRECTOR OF PSYCHOLOGY Unavailable Unavailable Georgie, L Elissa DIRECTOR OF PSYCHOLOGY Unavailable Unavailable Clintwood, L Elissa DIRECTOR OF PSYCHOLOGY Unavailable Unavailable Clintwood, L Elissa DIRECTOR OF PSYCHOLOGY Unavailable Unavailable Georgie, L Elissa DIRECTOR OF PSYCHOLOGY Unavailable Unavailable Clintwood, L Elissa DIRECTOR OF PSYCHOLOGY Unavailable Unavailable Georgie, L Elissa DIRECTOR OF PSYCHOLOGY Unavailable Unavailable Georgie, L Elissa DIRECTOR OF PSYCHOLOGY Unavailable Unavailable Clintwood, L Elissa DIRECTOR OF PSYCHOLOGY Unavailable Unavailable Clintwood, L Elissa DIRECTOR OF PSYCHOLOGY Unavailable Unavailable Clintwood, L Elissa DIRECTOR OF PSYCHOLOGY Unavailable Unavailable Georgie, L Elissa DIRECTOR OF PSYCHOLOGY Unavailable Unavailable Georgie, L Elissa DIRECTOR OF PSYCHOLOGY Unavailable Unavailable Clintwood, L Elissa DIRECTOR OF PSYCHOLOGY Unavailable Unavailable Clintwood, L Elissa DIRECTOR OF PSYCHOLOGY Unavailable Unavailable Clintwood, L Elissa DIRECTOR OF PSYCHOLOGY Unavailable Unavailable Clintwood, L Elissa DIRECTOR OF PSYCHOLOGY Unavailable Unavailable Georgie, L Elissa DIRECTOR OF PSYCHOLOGY Unavailable Unavailable Georgie, L Elissa DIRECTOR OF PSYCHOLOGY Unavailable Unavailable Georgie, L Elissa DIRECTOR OF PSYCHOLOGY Unavailable Unavailable Clintwood, L Elissa DIRECTOR OF PSYCHOLOGY Unavailable Unavailable Georgie, L Elissa DIRECTOR OF PSYCHOLOGY Unavailable Unavailable Georgie, L Elissa DIRECTOR OF PSYCHOLOGY Unavailable Unavailable Clintwood, L Elissa DIRECTOR OF PSYCHOLOGY Unavailable Unavailable Georgie, L Elissa DIRECTOR OF PSYCHOLOGY Unavailable Unavailable Clintwood, L Elissa DIRECTOR OF PSYCHOLOGY Unavailable Unavailable Georgie, L Elissa DIRECTOR OF PSYCHOLOGY Unavailable Unavailable Re-disclosure Warning The records that you are about to access may contain information from federally-assisted alcohol or drug abuse programs. If such information is present, then the following federally mandated warning applies: This information has been disclosed to you from records protected by federal confidentiality rules (42 CFR part 2). The federal rules prohibit you from making any further disclosure of this information unless further disclosure is expressly permitted by the written consent of the person to whom it pertains or as otherwise permitted by 42 CFR part 2. A general authorization for the release of medical or other information is NOT sufficient for this purpose. The Federal rules restrict any use of the information to criminally investigate or prosecute any alcohol or drug abuse patient.The records that you are about to access may contain highly sensitive health information, the redisclosure of which is protected by Article 27-F of the [facility] Public Health law. If you continue you may have access to information: Regarding HIV / AIDS; Provided by facilities licensed or operated by the [facility] Office of Mental Health; or Provided by the [facility] Office for People With Developmental Disabilities. If such information is present, then the following [facility] mandated warning applies: This information has been disclosed to you from confidential records which are protected by state law. State law prohibits you from making any further disclosure of this information without the specific written consent of the person to whom it pertains, or as otherwise permitted by law. Any unauthorized further disclosure in violation of state law may result in a fine or usp sentence or both. A general authorization for the release of medical or other information is NOT sufficient authorization for further disc losure. Allergies and Adverse Reactions Type Description Substance Reaction Status Data Source(s ) Drug allergy BuPROPion HCl ER (XL) Bupropion nausea, PERSAUD, dizziness Active eCW1 ([facility]) No Known Drug Allergies No Known Drug Allergies [facility] Drug allergy Drug allergy NKDA MEDENT ([facility] Family History Family Member Name Family Member Gender Family Member Status Date o f Status Description Data Source(s) Unknown Unknown Problem MEDENT ([facility], ) Encounters Encounter Providers Location Date Indications Data Source(s ) Outpatient Attender: Jennifer COTTO Physical Therapy 03:30:00 PM EDT [facility] [place] [address] [address] 01/16/2020 12:00:00 AM EDT eCW1 ([facility]) [facility] [place] [address] [address] 12/22/2019 12:00:00 AM EDT eCW1 ([facility]) Outpatient Attender: Joseph Zapata MD Physical Therapy 09:45:00 AM EDT MEDENT ([facility]) Outpatient Referrer: DIGNA KEVIN MD 10/13/2019 05:05:00 AM EDT [facility] Outpatient Attender: ISHAAN PAHCECO [facility] Office 09/24 01:45:00 PM EDT MEDENT ([facility] [address], [facility] [address] 10/02/2019 12:00:00 AM EDT eCW1 ([facility]) [address] [address] 09/23/2019 12:00:00 AM EDT eCW1 ([facility]) Outpatient Attender: VERÓNICA SCHULTZ MD Main Office 09/20/2019 09:30:00 AM EDT MEDENT ([facility] [address] [place] [address] 09/07/2019 12:00:00 AM EDT eCW1 ([facility]) Outpatient Referrer: DIGNA KEVIN MD 09/06/2019 05:09:00 AM EDT [facility] OFFICE OUTPATIENT NEW 30 MINUTES Attender: Joseph Zapata MD Phy sical Therapy 09/01/2019 10:00:00 AM EDT MEDENT ([facility]) [address] [place] [address] 08/29/2019 12:00:00 AM EDT [facility] [address] [place] [address] 08/29/2019 12:00:00 AM EDT [facility]CW1 ([facility] [address] [place] [address] 08/24/2019 12:00:00 AM EDT [facility] [address] [address] 07/17/2019 12:00:00 AM EDT eCW1 ([facility]) Outpatient Attender: ISHAAN PACHECO [facility] 06/24 01:45:00 PM EDT MEDENT ([facility] [address] [address] 06/27/2019 12:00:00 AM EST eCW1 ([facility]) Outpatient Attender: Elissa BERRIOS Main Office 06/21/2019 01:00:0 0 PM EST MEDENT ([facility]) [address] [place] [address] 06/08/2019 12:00:00 AM EST eCW1 ([facility]) Outpatient Attender: ISHAAN PACHECO [facility] 07/2019 12:00:00 PM EST MEDENT ([facility] Outpatient Referrer: DIGNA KEVIN MD 05/04/2019 02:43:00 PM EST [facility] Outpatient Referrer: DIGNA KEVIN MD 05/04/2019 07:04:00 AM EST [facility] [address] [place] [address] 05/01/2019 12:00:00 AM EST eCW1 ([facility]) [address] [place] [address] 05/01/2019 12:00:00 AM EST eCW1 ([facility]) [address] [place] [address] 04/21/2019 12:00:00 AM EST eCW1 ([facility]) [address] [address] 04/20/2019 12:00:00 AM EST eCW1 ([facility]) Emergency Attender: VIVIEN MEDRANO MD 1 06/18/2018 09:35:00 AM EST - 04/17/2019 12:00:00 PM EST [facility] Patient discharged. [facility] [place] [address] [address] 04/17/2019 12:00:00 AM EST eCW1 ([facility]) [facility] [place] [address] [address] 04/17/2019 12:00:00 AM EST eCW1 ([facility]) Medications Medication Brand Name Start Date Product Form Dose Route Admi nistrative Instructions Pharmacy Instructions Status Indications Reaction Description Data Source(s) 750 mg 04/27/2020 12:00:00 AM EST tablet 30 TAKE ONE TABLET BY MOUTH THREE TIMES A DAY TAKE ONE TABLET BY MOUTH THREE TIMES A DAY SOLD: 04/29/2020 [facility] 10 mg 04/23/2020 12:00:00 AM EST tablet 30 TAKE ONE TABLET BY MOUTH EVERY DAY TAKE ONE TABLET BY MOUTH EVERY DAY SOLD: 04/29/2020 [facility] 600 mg 04/22/2020 12:00:00 AM EST tablet 90 TAKE ONE TABLET BY MOUTH THREE TIMES A DAY WITH FOOD OR MILK TAKE ONE TABLET BY MOUTH THREE TIMES A D AY WITH FOOD OR MILK SOLD: 04/29/2020 [facility] Escitalopram 20 MG Oral Tablet ESCITALOPRAM OXALATE 04/22/2020 1 2:00:00 AM EST tablet 30 TAKE ONE TABLET BY MOUTH EVERY D AY TAKE ONE TABLET BY MOUTH EVERY DAY SOLD: 04/29/2020 [facility] Escitalopram 20 MG Oral Tablet ESCITALOPRAM OXALATE 01/10/2020 1 2:00:00 AM EDT tablet 30 TAKE ONE TABLET BY MOUTH EVERY D AY TAKE ONE TABLET BY MOUTH EVERY DAY SOLD: 01/25/2020 [facility] 600 mg 01/10/2020 12:00:00 AM EDT tablet 90 TAKE ONE TABLET BY MOUTH THREE TIMES A DAY NEEDED WITH FOOD OR MILK TAKE ONE TABLET BY MOUTH THREE TIMES A DAY NEEDED WITH FOOD OR MILK SOLD: 01/25/2020 [facility] 5-325 mg 01/08/2020 12:00:00 AM EDT tablet 12 TAKE ONE TABLET BY MOUTH EVERY 6 HOURS NEEDED FOR PAIN , MAXIMUM DAILY DOSE = 4 TABLETS TAKE ONE TABLET BY MOUTH EVERY 6 HOURS NEEDED FOR PAIN , MAXIMUM DAILY DOSE = 4 TABLETS SOLD: 01/08/2020 [facility] 500 mg 12/22/2019 12:00:00 AM EDT tablet 21 TAKE ONE TABLET BY MOUTH THREE TIMES A DAY TAKE ONE TABLET BY MOUTH THREE TIMES A DAY SOLD: 12/22/2019 [facility] 600 mg 12/22/2019 12:00:00 AM EDT tablet 21 TAKE ONE TABLET BY MOUTH THREE TIMES A DAY WITH FOOD TAKE ONE TABLET BY MOUTH THREE TIMES A DAY WITH FOOD S OLD: 12/22/2019 [facility] montelukast 10 MG Oral Tablet MONTELUKAST SODIUM 12/18/2019 12:0 0:00 AM EDT tablet 30 TAKE ONE TABLET BY MOUTH EVERY E VENING FOR 30 DAYS TAKE ONE TABLET BY MOUTH EVERY EVENING FOR 30 DAYS SOLD: 12/22/2019 [facility] 600 mg 11/06/2019 12:00:00 AM EDT tablet 90 TAKE ONE TABLET BY MOUTH THREE TIMES A DAY NEEDED WITH FOOD OR MILK TAKE ONE TABLET BY MOUTH THREE TIMES A DAY NEEDED WITH FOOD OR MILK SOLD: 11/09/2019 [facility] 40 mg 10/23/2019 12:00:00 AM EDT capsule,delayed release (DR/EC) 60 TAKE ONE CAPSULE BY MOUTH TWICE A DAY TAKE ONE CAPSULE BY MOUTH TWICE A DAY SOLD: 01/07/2020 [facility] 40 mg 10/23/2019 12:00:00 AM EDT capsule,delayed release (DR/EC) 60 TAKE ONE CAPSULE BY MOUTH TWICE A DAY TAKE ONE CAPSULE BY MOUTH TWICE A DAY SOLD: 04/22/2020 [facility] 40 mg 10/23/2019 12:00:00 AM EDT capsule,delayed release (DR/EC) 60 TAKE ONE CAPSULE BY MOUTH TWICE A DAY TAKE ONE CAPSULE BY MOUTH TWICE A DAY SOLD: 10/23/2019 [facility] 40 mg 10/23/2019 12:00:00 AM EDT capsule,delayed release (DR/EC) 60 TAKE ONE CAPSULE BY MOUTH TWICE A DAY TAKE ONE CAPSULE BY MOUTH TWICE A DAY SOLD: 11/27/2019 [facility] 600 mg 09/26/2019 12:00:00 AM EDT tablet 90 TAKE ONE TABLET BY MOUTH THREE TIMES A DAY NEEDED WITH FOOD OR MILK TAKE ONE TABLET BY MOUTH THREE TIMES A DAY NEEDED WITH FOOD OR MILK SOLD: 09/26/2019 [facility] 90 mcg/actuation 09/25/2019 12:00:00 AM EDT [facility] aerosol inha ler 8 INHALE TWO PUFFS BY MOUTH EVERY 6 HOURS NEEDED INHALE TWO PUFFS BY MOUTH EVERY 6 HOURS NEEDED SOLD: 04/22/2020 [facility] 90 mcg/actuation 09/25/2019 12:00:00 AM EDT HFA aerosol inha ler 8 INHALE TWO PUFFS BY MOUTH EVERY 6 HOURS NEEDED INHALE TWO PUFFS BY MOUTH EVERY 6 HOURS NEEDED SOLD: 10/23/2019 [facility] 90 mcg/actuation 09/25/2019 12:00:00 AM EDT HFA aerosol inha ler 8 INHALE TWO PUFFS BY MOUTH EVERY 6 HOURS NEEDED INHALE TWO PUFFS BY MOUTH EVERY 6 HOURS NEEDED SOLD: 11/27/2019 [facility] 90 mcg/actuation 09/25/2019 12:00:00 AM EDT HFA aerosol inha ler 8 INHALE TWO PUFFS BY MOUTH EVERY 6 HOURS NEEDED INHALE TWO PUFFS BY MOUTH EVERY 6 HOURS NEEDED SOLD: 01/07/2020 [facility] 90 mcg/actuation 09/25/2019 12:00:00 AM EDT HFA aerosol inha ler 8 INHALE TWO PUFFS BY MOUTH EVERY 6 HOURS NEEDED INHALE TWO PUFFS BY MOUTH EVERY 6 HOURS NEEDED SOLD: 09/26/2019 [facility] 160-4.5 mcg/actuation 09/20/2019 12:00:00 AM EDT HFA aerosol inhaler 10 INHALE TWO PUFFS BY MOUTH TWICE A DAY INHALE TWO PUFFS BY MOUTH TWICE A DAY SOLD: 01/07/2020 [facility] 160-4.5 mcg/actuation 09/20/2019 12:00:00 AM EDT HFA aerosol inhaler 10 INHALE TWO PUFFS BY MOUTH TWICE A DAY INHALE TWO PUFFS BY MOUTH TWICE A DAY SOLD: 11/27/2019 [facility] 60 ACTUAT Budesonide 0.16 MG/ACTUAT / fo rmoterol fumarate 0.0045 MG/ACTUAT Metered Dose Inhaler [Symbicort] Symbicort 09/20/2019 12:00:00 AM EDT RESPIRATORY active MEDENT ( [facility]) 160-4.5 mcg/actuation 09/20/2019 12:00:00 AM EDT HFA aerosol inhaler 10 INHALE TWO PUFFS BY MOUTH TWICE A DAY INHALE TWO PUFFS BY MOUTH TWICE A DAY SOLD: 09/26/2019 [facility] 600 mg 09/04/2019 12:00:00 AM EDT tablet 90 TAKE ONE TABLET BY MOUTH THREE TIMES A DAY WITH FOOD OR MILK NEEDED TAKE ONE TABLET BY MOUTH THREE TIMES A DAY WITH FOOD OR MILK NEEDED SOLD: 09/06/2019 [facility] Escitalopram 20 MG Oral Tablet ESCITALOPRAM OXALATE 08/30/2019 1 2:00:00 AM EDT tablet 30 TAKE ONE TABLET BY MOUTH EVERY D AY TAKE ONE TABLET BY MOUTH EVERY DAY SOLD: 10/23/2019 [facility] Escitalopram 20 MG Oral Tablet ESCITALOPRAM OXALATE 08/30/2019 1 2:00:00 AM EDT tablet 30 TAKE ONE TABLET BY MOUTH EVERY D AY TAKE ONE TABLET BY MOUTH EVERY DAY SOLD: 11/27/2019 [facility] Escitalopram 20 MG Oral Tablet ESCITALOPRAM OXALATE 08/30/2019 1 2:00:00 AM EDT tablet 30 TAKE ONE TABLET BY MOUTH EVERY D AY TAKE ONE TABLET BY MOUTH EVERY DAY SOLD: 09/06/2019 [facility] Escitalopram 20 MG Oral Tablet Escitalopram Oxalate 20 MG Escitalopram Oxalate 20 MG 08/29/2019 12:00:00 AM EDT active 1 tablet eCW1 ([facility]) Escitalopram 20 MG Oral Tablet Escitalopram Oxalate 20 MG Escitalopram Oxalate 20 MG 08/29/2019 12:00:00 AM EDT 1.0 {tablet} activ e Escitalopram Oxalate 20 MG eCW1 ([facility]) Escitalopram 20 MG Oral Tablet Escitalopram Oxalate 20 MG Escitalopram Oxalate 20 MG 08/29/2019 12:00:00 AM EDT 1.0 {tablet} activ e Escitalopram Oxalate 20 MG eCW1 ([facility]) Escitalopram 20 MG Oral Tablet Escitalopram Oxalate 20 MG Escitalopram Oxalate 20 MG 08/29/2019 12:00:00 AM EDT active 1 tablet eCW1 ([facility]) 600 mg 08/21/2019 12:00:00 AM EDT tablet 90 TAKE ONE TABLET BY MOUTH THREE TIMES A DAY NEEDED WITH FOOD OR MILK TAKE ONE TABLET BY MOUTH THREE TIMES A DAY NEEDED WITH FOOD OR MILK SOLD: 08/26/2019 [facility] 80-4.5 mcg/actuation 07/20/2019 12:00:00 AM EDT HFA aerosol inhaler 10 INHALE TWO PUFFS BY MOUTH TWICE A DAY, MORNING AND EVENING INHALE TWO PUFFS BY MOUTH TWICE A DAY, MORNING AND EVENING SOLD: 08/26/2019 [facility] 10 mg 07/20/2019 12:00:00 AM EDT tablet 30 TAKE ONE TABLET BY MOUTH EVERY DAY TAKE ONE TABLET BY MOUTH EVERY DAY SOLD: 11/27/2019 [facility] 80-4.5 mcg/actuation 07/20/2019 12:00:00 AM EDT HFA aerosol inhaler 10 INHALE TWO PUFFS BY MOUTH TWICE A DAY, MORNING AND EVENING INHALE TWO PUFFS BY MOUTH TWICE A DAY, MORNING AND EVENING SOLD: 07/25/2019 [facility] 50 mcg/actuation 07/20/2019 12:00:00 AM EDT spray,suspension 16 INSTILL ONE SPRAY IN EACH NOSTRIL EVERY MORNING INSTILL ONE SPRAY IN EACH NOSTRIL EVERY MORNING SOLD: 12/22/2019 [facility] 50 mcg/actuation 07/20/2019 12:00:00 AM EDT spray,suspension 16 INSTILL ONE SPRAY IN EACH NOSTRIL EVERY MORNING INSTILL ONE SPRAY IN EACH NOSTRIL EVERY MORNING SOLD: 11/09/2019 [facility] 10 mg 07/20/2019 12:00:00 AM EDT tablet 30 TAKE ONE TABLET BY MOUTH EVERY DAY TAKE ONE TABLET BY MOUTH EVERY DAY SOLD: 10/23/2019 [facility] 50 mcg/actuation 07/20/2019 12:00:00 AM EDT spray,suspension 16 INSTILL ONE SPRAY IN EACH NOSTRIL EVERY MORNING INSTILL ONE SPRAY IN EACH NOSTRIL EVERY MORNING SOLD: 07/25/2019 [facility] 10 mg 07/20/2019 12:00:00 AM EDT tablet 30 TAKE ONE TABLET BY MOUTH EVERY DAY TAKE ONE TABLET BY MOUTH EVERY DAY SOLD: 01/07/2020 [facility] 80-4.5 mcg/actuation 07/20/2019 12:00:00 AM EDT HFA aerosol inhaler 10 INHALE TWO PUFFS BY MOUTH TWICE A DAY, MORNING AND EVENING INHALE TWO PUFFS BY MOUTH TWICE A DAY, MORNING AND EVENING SOLD: 04/29/2020 [facility] 10 mg 07/20/2019 12:00:00 AM EDT tablet 90 TAKE ONE TABLET BY MOUTH EVERY DAY TAKE ONE TABLET BY MOUTH EVERY DAY SOLD: 07/25/2019 [facility] 80-4.5 mcg/actuation 07/20/2019 12:00:00 AM EDT HFA aerosol inhaler 10 INHALE TWO PUFFS BY MOUTH TWICE A DAY, MORNING AND EVENING INHALE TWO PUFFS BY MOUTH TWICE A DAY, MORNING AND EVENING SOLD: 09/26/2019 [facility] 600 mg 07/20/2019 12:00:00 AM EDT tablet 90 TAKE ONE TABLET BY MOUTH THREE TIMES A DAY NEEDED WITH FOOD OR MILK TAKE ONE TABLET BY MOUTH THREE TIMES A DAY NEEDED WITH FOOD OR MILK SOLD: 07/25/2019 [facility] 60 ACTUAT Budesonide 0.08 MG/ACTUAT / fo rmoterol fumarate 0.0045 MG/ACTUAT Metered Dose Inhaler Budesonide/Formoterol Fumarate Dihydrate 07/19/2019 12:00:00 AM EDT RESPIRATORY active [facility] ([facility] montelukast 10 MG Oral Tablet MONTELUKAST SODIUM 07/15/2019 12:0 0:00 AM EDT tablet 30 TAKE ONE TABLET BY MOUTH EVERY E VENING TAKE ONE TABLET BY MOUTH EVERY EVENING SOLD: 10/23/2019 [facility] montelukast 10 MG Oral Tablet MONTELUKAST SODIUM 07/15/2019 12:0 0:00 AM EDT tablet 30 TAKE ONE TABLET BY MOUTH EVERY E VENING TAKE ONE TABLET BY MOUTH EVERY EVENING SOLD: 07/19/2019 [facility] montelukast 10 MG Oral Tablet MONTELUKAST SODIUM 07/15/2019 12:0 0:00 AM EDT tablet 30 TAKE ONE TABLET BY MOUTH EVERY E VENING TAKE ONE TABLET BY MOUTH EVERY EVENING SOLD: 08/26/2019 [facility] montelukast 10 MG Oral Tablet MONTELUKAST SODIUM 07/15/2019 12:0 0:00 AM EDT tablet 30 TAKE ONE TABLET BY MOUTH EVERY E VENING TAKE ONE TABLET BY MOUTH EVERY EVENING SOLD: 09/26/2019 [facility] 8 % 07/12/2019 12:00:00 AM EDT solution 6 APPLY TO AFFECTED AREA(S) OF NAIL(S) ONCE DAILY, REMOVE ONCE WEEKLY APPLY TO AFFECTED AREA(S) OF NAIL(S) ONC E DAILY, REMOVE ONCE WEEKLY SOLD: 07/15/2019 [facility] ciclopirox 80 MG/ML Topical Solution Ciclopirox 07/11/2019 12:00:00 A M EDT active [facility] ([facility] 4 mg 06/27/2019 12:00:00 AM EST tablet 20 TAKE ONE TABLET BY MOUTH EVERY 6 HOURS TAKE ONE TABLET BY MOUTH EVERY 6 HOURS SOLD: 06/27/2019 [facility] 60 ACTUAT Budesonide 0.16 MG/ACTUAT / fo rmoterol fumarate 0.0045 MG/ACTUAT Metered Dose Inhaler [Symbicort] Symbicort 06/21/2019 12:00:00 AM EST RESPIRATORY completed [facility] ( [facility]) Betamethasone 0.5 MG/ML Topical Cream Betamethasone Dipropio laurel 06/19/2019 12:00:00 AM EST active M [facility] ([facility] 0.05 % 06/19/2019 12:00:00 AM EST cream 15 APPLY A THIN FILM TOPICALLY TO RASH ON FOOT TWICE DAILY APPLY A THIN FILM TOPICALLY TO RASH ON F OOT TWICE DAILY SOLD: 06/19/2019 [facility] 40 mg 06/09/2019 12:00:00 AM EST capsule,delayed release (DR/EC) 60 TAKE ONE CAPSULE BY MOUTH TWICE A DAY TAKE ONE CAPSULE BY MOUTH TWICE A DAY SOLD: 07/19/2019 [facility] 90 mcg/actuation 06/09/2019 12:00:00 AM EST HFA aerosol inha ler 8 INHALE TWO PUFFS BY MOUTH EVERY 6 HOURS NEEDED INHALE TWO PUFFS BY MOUTH EVERY 6 HOURS NEEDED SOLD: 06/19/2019 [facility] 40 mg 06/09/2019 12:00:00 AM EST capsule,delayed release (DR/EC) 60 TAKE ONE CAPSULE BY MOUTH TWICE A DAY TAKE ONE CAPSULE BY MOUTH TWICE A DAY SOLD: 06/19/2019 [facility] 7 mg/24 hr 06/09/2019 12:00:00 AM EST patch 24 hour 28 APPLY 1 PATCH TO SKIN ONCE DAILY IN IN THE MORNING, REMOVE AT BEDTIME APPLY 1 PATCH TO SKIN ONCE DAILY IN IN THE MORNING, REMOVE AT BEDTIME SOLD: 07/19/2019 [facility] 7 mg/24 hr 06/09/2019 12:00:00 AM EST patch 24 hour 28 APPLY 1 PATCH TO SKIN ONCE DAILY IN IN THE MORNING, REMOVE AT BEDTIME APPLY 1 PATCH TO SKIN ONCE DAILY IN IN THE MORNING, REMOVE AT BEDTIME SOLD: 06/19/2019 [facility] Escitalopram 10 MG Oral Tablet ESCITALOPRAM OXALATE 06/09/2019 1 2:00:00 AM EST tablet 30 TAKE ONE TABLET BY MOUTH EVERY D AY TAKE ONE TABLET BY MOUTH EVERY DAY SOLD: 06/19/2019 [facility] Escitalopram 10 MG Oral Tablet ESCITALOPRAM OXALATE 06/09/2019 1 2:00:00 AM EST tablet 30 TAKE ONE TABLET BY MOUTH EVERY D AY TAKE ONE TABLET BY MOUTH EVERY DAY SOLD: 11/27/2019 [facility] Escitalopram 10 MG Oral Tablet ESCITALOPRAM OXALATE 06/09/2019 1 2:00:00 AM EST tablet 30 TAKE ONE TABLET BY MOUTH EVERY D AY TAKE ONE TABLET BY MOUTH EVERY DAY SOLD: 08/26/2019 [facility] 40 mg 06/09/2019 12:00:00 AM EST capsule,delayed release (DR/EC) 60 TAKE ONE CAPSULE BY MOUTH TWICE A DAY TAKE ONE CAPSULE BY MOUTH TWICE A DAY SOLD: 09/26/2019 [facility] 40 mg 06/09/2019 12:00:00 AM EST capsule,delayed release (DR/EC) 60 TAKE ONE CAPSULE BY MOUTH TWICE A DAY TAKE ONE CAPSULE BY MOUTH TWICE A DAY SOLD: 08/26/2019 [facility] Escitalopram 10 MG Oral Tablet ESCITALOPRAM OXALATE 06/09/2019 1 2:00:00 AM EST tablet 30 TAKE ONE TABLET BY MOUTH EVERY D AY TAKE ONE TABLET BY MOUTH EVERY DAY SOLD: 07/19/2019 [facility] Nicotine 7 MG/24HR Nicotine 7 MG/24HR 06/08/2019 12:00:00 AM EST 1.0 {patch_to_skin} suspended Nicotine 7 MG/ 24HR eCW1 ([facility]) Nicotine 7 MG/24HR Nicotine 7 MG/24HR 06/08/2019 12:00:00 AM EST active 1 patch to skin eCW1 ([facility]) Nicotine 7 MG/24HR Nicotine 7 MG/24HR 06/08/2019 12:00:00 AM EST suspended 1 patch to skin eCW1 ([facility]) Nicotine 7 MG/24HR Nicotine 7 MG/24HR 06/08/2019 12:00:00 AM EST 1.0 {patch_to_skin} suspended Nicotine 7 MG/ 24HR eCW1 ([facility]) 250 mg 06/01/2019 12:00:00 AM EST tablet 30 TAKE ONE TABLET BY MOUTH EVERY DAY TAKE ONE TABLET BY MOUTH EVERY DAY SOLD: 06/01/2019 [facility] terbinafine 250 MG Oral Tablet Terbinafine HCL 05/31/2019 12:00:00 AM EST ORAL completed [facility] ([facility] 20 % 05/31/2019 12:00:00 AM EST solution 35 APPL Y TO FEET ONCE DAILY APPLY TO FEET ONCE DAILY SOLD: 06/01/2019 [facility] aluminum chloride 200 MG/ML Topical Solution [Drysol] Drysol 05/30/2019 12:00:00 AM EST active [facility] ([facility] 100 mg 04/21/2019 12:00:00 AM EST capsule 14 TAKE ONE CAPSULE BY MOUTH EVERY 12 HOURS TAKE ONE CAPSULE BY MOUTH EVERY 12 HOURS SOLD: 04/21/2019 [facility] Ondansetron 8 MG Oral Tablet Ondansetron HCl 8 MG Ondansetro n HCl 8 MG 04/21/2019 12:00:00 AM EST active 1 tablet as needed eC ([facility]) 8 mg 04/21/2019 12:00:00 AM EST tablet 10 TAKE ONE TABLET BY MOUTH EVERY DAY NEEDED TAKE ONE TABLET BY MOUTH EVERY DAY NEEDED SOLD: 04/28/2019 [facility] 90 mcg/actuation 04/21/2019 12:00:00 AM EST HFA aerosol inha ler 8 INHALE 2 PUFFS BY MOUTH EVERY 4-6 HOURS NEEDED FOR WHEEZING INHALE 2 PUFFS BY MOUTH EVERY 4-6 HOURS NEEDED FOR WHEEZING SOLD: 04/21/2019 [facility] Ondansetron 8 MG Oral Tablet Ondansetron HCl 8 MG Ondansetro n HCl 8 MG 04/21/2019 12:00:00 AM EST active 1 tablet as needed eC ([facility]) benzonatate 100 MG Oral Capsule BENZONATATE 04/21/2019 12:00:00 AM EST capsule 21 TAKE ONE CAPSULE BY MOUTH THREE TIMES A DAY FOR COUGH TAKE ONE CAPSULE BY MOUTH THREE TIMES A DAY FOR COUGH SOLD: 04/21/2019 [facility] 20 mg 04/17/2019 12:00:00 AM EST tablet 15 TAKE THREE TABLETS BY MOUTH EVERY DAY TAKE THREE TABLETS BY MOUTH EVERY DAY SOLD: 04/17/2019 [facility] 875-125 mg 04/17/2019 12:00:00 AM EST tablet 20 TAKE ONE TABLET BY MOUTH TWICE A DAY TAKE ONE TABLET BY MOUTH TWICE A DAY SOLD: 04/17/2019 [facility] Escitalopram 10 MG Oral Tablet ESCITALOPRAM OXALATE 03/08/2019 1 2:00:00 AM EST tablet 30 TAKE ONE TABLET BY MOUTH EVERY D AY TAKE ONE TABLET BY MOUTH EVERY DAY SOLD: 05/12/2019 [facility] 40 mg 03/08/2019 12:00:00 AM EST capsule,delayed release (DR/EC) 60 TAKE ONE CAPSULE BY MOUTH TWICE A DAY TAKE ONE CAPSULE BY MOUTH TWICE A DAY SOLD: 05/12/2019 [facility] montelukast 10 MG Oral Tablet MONTELUKAST SODIUM 03/03/2019 12:0 0:00 AM EST tablet 30 TAKE ONE TABLET BY MOUTH EVERY E VENING TAKE ONE TABLET BY MOUTH EVERY EVENING SOLD: 05/12/2019 [facility] 80-4.5 mcg/actuation 03/02/2019 12:00:00 AM EST HFA aerosol inhaler 10 INHALE TWO PUFFS BY MOUTH TWICE A DAY, MORNING AND EVENING INHALE TWO PUFFS BY MOUTH TWICE A DAY, MORNING AND EVENING SOLD: 06/27/2019 [facility] 50 mcg/actuation 03/02/2019 12:00:00 AM EST spray,suspension 16 SPRAY ONE SPRAY IN EACH NOSTRIL EVERY EVENING SPRAY ONE SPRAY IN EACH NOSTRIL EVERY EVENING SOLD: 06/27/2019 [facility] 80-4.5 mcg/actuation 03/02/2019 12:00:00 AM EST HFA aerosol inhaler 10 INHALE TWO PUFFS BY MOUTH TWICE A DAY, MORNING AND EVENING INHALE TWO PUFFS BY MOUTH TWICE A DAY, MORNING AND EVENING SOLD: 05/15/2019 [facility] 50 mcg/actuation 03/02/2019 12:00:00 AM EST spray,suspension 16 SPRAY ONE SPRAY IN EACH NOSTRIL EVERY EVENING SPRAY ONE SPRAY IN EACH NOSTRIL EVERY EVENING SOLD: 05/15/2019 [facility] 10 mg 12/29/2018 12:00:00 AM EDT tablet 30 TAKE ONE TABLET BY MOUTH EVERY DAY TAKE ONE TABLET BY MOUTH EVERY DAY SOLD: 05/12/2019 [facility] 10 mg 12/29/2018 12:00:00 AM EDT tablet 30 TAKE ONE TABLET BY MOUTH EVERY DAY TAKE ONE TABLET BY MOUTH EVERY DAY SOLD: 06/27/2019 [facility] Insurance Providers Payer name Policy type / Coverage type Policy ID Covered democrat ID Covered democrat's relationship to aguiar Policy Aguiar Plan Information [facility] [id number] SP [id number] [facility] [id number] S [id number] LIF[employer] BENEFIT SOLUTIONS [place] [id number] Child [id number] SELF PAY ONLY [id number] SP [id number] SELF PAY ONLY [id number] SP [id number] [facility] [id number] SP [id number] [facility] [place] [id number] Self [id number] ANSI-Commercial [id number] ANSI-Not a Secondary Insurance [id number] [facility] [place] Medicaid [id number] Self [id number] ANSI-Not a Secondary Insurance [id number] ANSI-Commercial [id number] ANSI-Not a Secondary Insurance [id number] ANSI-Commercial [id number] ANSI-Commercial [id number] ANSI-Not a Secondary Insurance [id number] [place]BS [place] PPO 302/[id number] SP [id number] MEDICAID [id number] SP [id number] ANSI-Not a Secondary Insurance [id number] ANSI-Commercial [id number] ANSI-Commercial [id number] ANSI-Not a Secondary Insurance [id number] [id number] SP [id number] Medicaid [place] Medicaid [id number] Self [id number] ANSI-Commercial [id number] ANSI-Not a Secondary Insurance [id number] ANSI-Not a Secondary Insurance [id number] ANSI-Commercial [id number] MEDICAID [id number] [place] [id number] ANSI-Commercial [id number] ANSI-Not a Secondary Insurance [id number] ANSI-Commercial [id number] ANSI-Not a Secondary Insurance [id number] BCBS [facility] HMO [id number] SP [id number] SELF PAY ONLY UNAVAILABLE UNAV AILABLE ANSI-Not a Secondary Insurance [id number] ANSI-Commercial [id number] ANSI-Commercial [id number] ANSI-Not a Secondary Insurance [id number] ANSI-Not a Secondary Insurance [id number] ANSI-Commercial [id number] ANSI-Not a Secondary Insurance [id number] ANSI-Commercial [id number] ANSI-Not a Secondary Insurance [id number] ANSI-Commercial [id number] ANSI-Not a Secondary Insurance [id number] ANSI-Commercial [id number] ANSI-Commercial [id number] ANSI-Not a Secondary Insurance [id number] ANSI-Commercial [id number] ANSI-Not a Secondary Insurance [id number] ANSI-Commercial [id number] ANSI-Not a Secondary Insurance [id number] ANSI-Commercial [id number] ANSI-Not a Secondary Insurance [id number] ANSI-Commercial [id number] ANSI-Not a Secondary Insurance [id number] ANSI-Commercial [id number] ANSI-Not a Secondary Insurance [id number] Self Pay P UNAVAILABLE S UNAVAILA BLE SELF PAY ONLY - SP1 SP JEFF [id number] SP [id number] 500 [facility] [place] P [id number] S [id number] Medicaid S [id number] S [id number] Managed Care [place] P [id number] S [id number] [facility] [place] Medicaid [id number] Self [id number] [place] MEDICAID [id number] [facility] [id number] SP [id number] LIFETIME BENEFIT SOLUTIONS [id number] SP [id number] [facility] [place] [facility] [id number] HU2 [id number] PGBA [facility] O [id number] S [id number] LIFETIME BENEFIT SOLUTIO O [id number] O [id number] N REGIONAL CLAIMS [place] -O/P [id number] [facility] -O/P [id number] Problems, Conditions, and Diagnoses Code Display Name Description Problem Type Effective Dates Data Source(s) 096108108 Gastroesophageal reflux disease Gastroesophageal reflux disease Problem 09/20/2019 12:00:00 AM EDT [facility] ([facility] [id number] Uncomplicated moderate persistent asthma Uncomplicated moderate persistent asthma Problem 09/20/2019 12:00:00 AM EDT [facility] ([facility]) [id number] Tinea pedis Tinea pedis Problem 06/05/2019 12:0 0:00 AM EST - 07/22/2019 12:00:00 AM EDT [facility] ([facility] [id number] Primary focal hyperhidrosis Primary focal hyperhidrosi s Problem 06/05/2019 12:00:00 AM EST - 07/22/2019 12:00:00 AM EDT [facility] ([facility] [id number] Onychomycosis Onychomycosis Problem 06/05/2019 12:00:00 AM EST [facility] ([facility] [id number] Nicotine dependence, cigarettes, uncompl icated Nicotine dependence, cigarettes, uncomplicated Diagnosis 04/17/2019 09:35:00 AM [facility] [id number] Unspecified asthma, uncomplicated Unspecified as thma, uncomplicated Diagnosis 04/17/2019 09:35:00 AM [facility] J209 Acute bronchitis, unspecified Acute bronchitis, unspec ified Diagnosis 04/17/2019 09:35:00 AM [facility] R05 Cough Cough Diagnosis 04/17/2019 09:35:00 AM [facility] Surgeries/Procedures Procedure Description Date Indications Data Source(s) INJECTION 1 TENDON SHEATH/LIGAMENT APONEUROSIS 12:00:00 AM EDT [facility] ([facility] ) Ultrasound, Each 15 Min, Constant Attendance 0 12:00:00 AM EDT [facility] ([facility] ) THERAPEUTIC PX 1/> AREAS EACH 15 MIN EXERCISES 12:00:00 AM EDT [facility] ([facility] ) MANUAL THERAPY TQS 1/> REGIONS EACH 15 MINUTES 12:00:00 AM EDT [facility] ([facility] ) Ultrasound, Each 15 Min, Constant Attendance 0 12:00:00 AM EDT [facility] ([facility] ) THERAPEUTIC PX 1/> AREAS EACH 15 MIN EXERCISES 12:00:00 AM EDT [facility] ([facility] ) MANUAL THERAPY TQS 1/> REGIONS EACH 15 MINUTES 12:00:00 AM EDT [facility] ([facility] ) MANUAL THERAPY TQS 1/> REGIONS EACH 15 MINUTES 12:00:00 AM EDT [facility] ([facility] ) THERAPEUTIC PX 1/> AREAS EACH 15 MIN EXERCISES 12:00:00 AM EDT [facility] ([facility] ) Ultrasound, Each 15 Min, Constant Attendance 0 12:00:00 AM EDT [facility] ([facility] ) Ultrasound, Each 15 Min, Constant Attendance 0 12:00:00 AM EDT [facility] ([facility] ) THERAPEUTIC PX 1/> AREAS EACH 15 MIN EXERCISES 12:00:00 AM EDT [facility] ([facility] ) MANUAL THERAPY TQS 1/> REGIONS EACH 15 MINUTES 12:00:00 AM EDT [facility] ([facility] ) Ultrasound, Each 15 Min, Constant Attendance 0 12:00:00 AM EDT [facility] ([facility] ) THERAPEUTIC PX 1/> AREAS EACH 15 MIN EXERCISES 12:00:00 AM EDT [facility] ([facility] ) MANUAL THERAPY TQS 1/> REGIONS EACH 15 MINUTES 12:00:00 AM EDT [facility] ([facility] ) BRNCDILAT RSPSE SPMTRY PRE&POST-BRNCDILAT ADMN 12:00:00 AM EDT [facility] ([facility]) NITRIC OXIDE GAS DETERMINATION 09/20/2019 12:0 0:00 AM EDT [facility] ([facility]) Physical Therapy Eval - Low Complexity 09/07/2019 12:0 0:00 AM EDT [facility] ([facility] ) INJECTION 1 TENDON SHEATH/LIGAMENT APONEUROSIS 12:00:00 AM EDT [facility] ([facility] ) RADEX HAND MINIMUM 3 VIEWS 09/01/2019 12:00:00 AM EDT [facility] ([facility] ) NITRIC OXIDE GAS DETERMINATION 06/21/2019 12:0 0:00 AM EST [facility] ([facility]) Results ID Date Data Source [id number] 06/10/2020 01:00:00 PM EST [facility] Name Value Range Interpretation Code Description Data Sabrina rce(s) Supporting Document(s) SARS coronavirus 2 RNA Not Detected [facility] This lab was ordered by [facility] and reported by [facility]. ID Date Data Source [id number] 12:00:00 AM EST [facility] Name Value Range Interpretation Code Description Data Sabrina rce(s) Supporting Document(s) SARS coronavirus 2 Ag NEGATIVE [facility] This lab was ordered by [facility] and reported by [facility]. ID Date Data Source [id number] 06/03/2020 05:20:00 AM EST [facility] Name Value Range Interpretation Code Description Data Sabrina rce(s) Supporting Document(s) SARS coronavirus 2 RNA Not Detected [facility] [place] This lab was ordered by [facility] and reported by [facility]. ID Date Data Source [id number] 06/02/2020 12:00:00 AM EST [facility] Name Value Range Interpretation Code Description Data Sabrina rce(s) Supporting Document(s) SARS-CoV2 Rapid Antigen Negative [facility] This lab was reported by [facility]. ID Date Data Source [id number] 05/23/2020 12:00:00 AM EST [facility] Name Value Range Interpretation Code Description Data Sabrina rce(s) Supporting Document(s) SARS coronavirus 2 Ag NEGATIVE [facility] This lab was ordered by [facility] and reported by [facility]. ID Date Data Source [id number] 05/20/2020 06:12:00 AM EST [facility] Name Value Range Interpretation Code Description Data Sabrina rce(s) Supporting Document(s) SARS coronavirus 2 RNA Not Detected [facility] [place] This lab was ordered by [facility] and reported by [facility]. ID Date Data Source [id number] 05/16/2020 12:00:00 AM EST [facility] Name Value Range Interpretation Code Description Data Sabrina rce(s) Supporting Document(s) SARS coronavirus 2 Ag Negative [facility] This lab was ordered by [facility] and reported by [facility]. ID Date Data Source [id number] 05/13/2020 06:04:00 AM EST [facility] Name Value Range Interpretation Code Description Data Sabrina rce(s) Supporting Document(s) SARS coronavirus 2 RNA Not Detected [facility] This lab was ordered by [facility] and reported by [facility]. ID Date Data Source [id number] 05/09/2020 12:00:00 AM EST [facility] Name Value Range Interpretation Code Description Data Sabrina rce(s) Supporting Document(s) SARS-CoV2 Rapid Antigen Negative [facility] This lab was ordered by [facility] and reported by [facility]. ID Date Data Source [id number] 05/06/2020 08:00:00 AM EST [facility] Name Value Range Interpretation Code Description Data Sabrina rce(s) Supporting Document(s) SARS coronavirus 2 RNA Not Detected [facility] This lab was ordered by [facility] and reported by [facility]. ID Date Data Source [id number] 04/29/2020 05:30:00 AM EST [facility] Name Value Range Interpretation Code Description Data Sabrina rce(s) Supporting Document(s) SARS coronavirus 2 RNA [facility] This lab was ordered by [facility] and reported by [facility]. ID Date Data Source [id number] 04/22/2020 06:30:00 AM EST [facility] Name Value Range Interpretation Code Description Data Sabrina rce(s) Supporting Document(s) SARS coronavirus 2 RNA [facility] This lab was ordered by [facility] and reported by [facility]. ID Date Data Source [id number] 04/17/2020 11:27:00 AM EST [facility] Name Value Range Interpretation Code Description Data Sabrina rce(s) Supporting Document(s) SARS coronavirus 2 RNA [facility] This lab was ordered by [facility] and reported by [facility]. ID Date Data Source [id number] 04/08/2020 08:00:00 AM EST [facility] Name Value Range Interpretation Code Description Data Sabrina rce(s) Supporting Document(s) SARS coronavirus 2 RNA [facility] This lab was ordered by [facility] and reported by [facility]. ID Date Data Source [id number] 04/04/2020 12:40:00 PM EST [facility] Name Value Range Interpretation Code Description Data Sabrina rce(s) Supporting Document(s) SARS coronavirus 2 RNA [facility] This lab was ordered by [facility] and reported by [facility]. ID Date Data Source [id number] 03/25/2020 07:00:00 AM EST [facility] Name Value Range Interpretation Code Description Data Sabrina rce(s) Supporting Document(s) SARS coronavirus 2 RNA [facility] This lab was ordered by [facility] and reported by [facility]. ID Date Data Source [id number] 03/18/2020 09:00:00 AM EST [facility] Name Value Range Interpretation Code Description Data Sabrina rce(s) Supporting Document(s) SARS coronavirus 2 RNA [facility] This lab was ordered by [facility] and reported by [facility]. ID Date Data Source [id number] 03/11/2020 10:14:00 AM EST [facility] Name Value Range Interpretation Code Description Data Sabrina rce(s) Supporting Document(s) SARS coronavirus 2 RNA [facility] This lab was ordered by [facility] and reported by [facility]. ID Date Data Source [id number] 03/04/2020 08:00:00 AM EST [facility] Name Value Range Interpretation Code Description Data Sabrina rce(s) Supporting Document(s) SARS coronavirus 2 RNA [facility] This lab was ordered by [facility] and reported by [facility]. ID Date Data Source [id number] 02/26/2020 06:00:00 AM EST [facility] Name Value Range Interpretation Code Description Data Sabrina rce(s) Supporting Document(s) SARS coronavirus 2 RNA [facility] This lab was ordered by [facility] and reported by [facility]. ID Date Data Source [id number] 02/19/2020 05:30:00 AM EDT [facility] Name Value Range Interpretation Code Description Data Sabrina rce(s) Supporting Document(s) SARS coronavirus 2 RNA [facility] This lab was ordered by [facility] and reported by [facility]. ID Date Data Source [id number] 02/12/2020 02:38:00 PM EDT [facility] Name Value Range Interpretation Code Description Data Sabrina rce(s) Supporting Document(s) SARS coronavirus 2 RNA [facility] This lab was ordered by [facility] and reported by [facility]. ID Date Data Source [id number] 02/08/2020 10:00:00 AM EDT [facility] Name Value Range Interpretation Code Description Data Sabrina rce(s) Supporting Document(s) SARS coronavirus 2 RNA [facility] This lab was ordered by [facility] and reported by [facility]. ID Date Data Source [id number] 01/29/2020 06:00:00 AM EDT [facility] Name Value Range Interpretation Code Description Data Sabrina rce(s) Supporting Document(s) SARS coronavirus 2 RNA [facility] This lab was ordered by [facility] and reported by [facility]. ID Date Data Source [id number] 01/22/2020 06:48:00 AM EDT [facility] Name Value Range Interpretation Code Description Data Sabrina rce(s) Supporting Document(s) SARS coronavirus 2 RNA [facility] This lab was ordered by [facility] and reported by [facility]. ID Date Data Source [id number] 01/08/2020 10:00:00 AM EDT [facility] Name Value Range Interpretation Code Description Data Sabrina rce(s) Supporting Document(s) SARS coronavirus 2 RNA [facility] This lab was ordered by [facility] and reported by [facility]. ID Date Data Source [id number] 01/03/2020 08:00:00 AM EDT [facility] Name Value Range Interpretation Code Description Data Sabrina rce(s) Supporting Document(s) SARS coronavirus 2 RNA [facility] This lab was ordered by [facility] and reported by [facility]. ID Date Data Source [id number] 12/25/2019 06:24:00 AM EDT [facility] Name Value Range Interpretation Code Description Data Sabrina rce(s) Supporting Document(s) SARS coronavirus 2 RNA [facility] This lab was ordered by [facility] and reported by [facility]. ID Date Data Source [id number] 12/18/2019 10:55:00 AM EDT [facility] Name Value Range Interpretation Code Description Data Sabrina rce(s) Supporting Document(s) SARS coronavirus 2 RNA [facility] This lab was ordered by [facility] and reported by [facility]. ID Date Data Source [id number] 12/14/2019 02:12:00 PM EDT [facility] Name Value Range Interpretation Code Description Data Sabrina rce(s) Supporting Document(s) SARS coronavirus 2 RNA [facility] This lab was ordered by [facility] and reported by [facility]. ID Date Data Source [id number] 11/13/2019 10:00:00 AM EDT [facility] Name Value Range Interpretation Code Description Data Sabrina rce(s) Supporting Document(s) SARS coronavirus 2 RNA [facility] This lab was ordered by [facility] and reported by [facility]. ID Date Data Source [id number] 11/06/2019 01:19:00 PM EDT [facility] Name Value Range Interpretation Code Description Data Sabrina rce(s) Supporting Document(s) SARS coronavirus 2 RNA [facility] This lab was ordered by [facility] and reported by [facility]. ID Date Data Source [id number] 10/30/2019 03:16:00 PM EDT [facility] Name Value Range Interpretation Code Description Data Sabrina rce(s) Supporting Document(s) SARS coronavirus 2 RNA [facility] This lab was ordered by [facility] and reported by [facility]. ID Date Data Source [id number] 10/23/2019 01:35:00 PM EDT [facility] Name Value Range Interpretation Code Description Data Sabrina rce(s) Supporting Document(s) SARS CORONAVIRUS 2 RNA [facility] This lab was ordered by [facility] and reported by [facility]. ID Date Data Source [id number] 10/16/2019 09:09:00 AM EDT [facility] Name Value Range Interpretation Code Description Data Sabrina rce(s) Supporting Document(s) SARS CORONAVIRUS 2 RNA [facility] This lab was ordered by [facility] and reported by [facility]. ID Date Data Source [id number] 05/30/2019 02:21:00 PM EST [facility] Name Value Range Interpretation Code Description Data Sabrina rce(s) Supporting Document(s) Blood Urea Nitrogen 11 mg/dL 7-18 [facility] Glucose, Fasting 112 mg/dL 70-100 Above high normal [facility] Creatinine For GFR 1.00 mg/dL 0.55-1.30 [facility] Glomerular Filtration Rate Laboratory test result [facility] <content>Units are mL/min/1.73 m2</content>
<content></content>
<content>Chronic Kidney Disease Staging per NKF:</content>
<content></content>
<content>Stage I & II GFR >=60 Normal to Mildly Decreased</content>
<content>Stage III GFR 30- 59 Moderately Decreased</content>
<content>Stage IV GFR 15-29 Severely Decreased</content>
<content>Stage V GFR <15 Very Little GFR Left</content>
<content>ESRD GFR <15 on DRY JANITOR</content>
<content></content> Sodium Level 139 meq/L 136-145 [facility] Potassium Serum 3.9 meq/L 3.5-5.1 [facility] Chloride Level 104 meq/L 98-107 [facility] Anion Gap 6 meq/L 8-16 [facility] ([facility] Chowdhury [facility] Carbon Dioxide Level 29 meq/L 21-32 [facility] ([facility] Calcium Level 9.9 mg/dL 8.5-10.1 [facility] ([facility] N[facility] Phosphorus Level 4.1 mg/dL 2.5-4.9 [facility] ID Date Data Source [id number] 05/30/2019 02:21:00 PM EST [facility] Name Value Range Interpretation Code Description Data Sabrina rce(s) Supporting Document(s) Ast/Sgot 16 U/L 7-37 [facility] Bilirubin,Total 0.6 mg/dL 0.2-1.0 [facility] ([facility]etris [facility] Alt/SGPT 34 U/L 12-78 [facility] Alkaline Phosphatase 80 U/L 45-117 [facility] ([facility]olores Powers[facility] Albumin 4.2 GM/DL 3.2-5.2 [facility] ([facility] Bilirubin,Direct 0.2 mg/dL 0.0-0.2 [facility] ([facility] Total Protein 7.5 GM/DL 6.4-8.2 [facility] ([facility] Albumin/Globulin Ratio 1.27 1.00-1.93 [facility] ([facility] ID Date Data Source [id number] 05/30/2019 02:21:00 PM EST [facility] (Thuan [facility] Name Value Range Interpretation Code Description Data Sabrina rce(s) Supporting Document(s) Hemoglobin 13.6 g/dL 12.0-15.5 [facility] ([facility] Parker[facility] Red Blood Count 4.54 10 4.00-5.40 [facility] (Corye [facility] White Blood Count 11.1 10 4.0-10.0 Above high normal [facility] (Samson [facility] Mean Corpuscular Volume 89.6 fl 80.0-96.0 M [facility] ([facility] Mean Corpuscular Hemoglobin 30.0 pg 27.0-33.0 [facility] (Samson CowanPTank[facility] Hematocrit 40.7 % 36.0-47.0 [facility] (Demetris meehan [facility] Red Cell Distribution Width 13.7 % 11.5-14.5 [facility] ([facility] Mean Corpuscular HGB Conc 33.4 g/dL 32.0-36.5 [facility] ([facility] Platelet Count, Automated 250 10 150-450 [facility] ([facility] Nucleated Red Blood Cell % 0.0 % 0-0 [facility] ([facility] ID Date Data Source [id number] 04/17/2019 09:35:00 AM EST [facility] 1 OrderSheet [facility] Emergency Department [address] [place] [address] Phone #: ext- [phone] 04/17/2019 09:25 [id number] Sex[facility] F : 1990 Age: 29yWEIGHT:95.2 kg (S) HEIGHT:60 inches (S) BMI:41.0ALLERGIES: No Known Drug AllergyCHIEF COMPLAINT: coughDIAGNOSIS: BronchitisLAB ORDERSOrder Description Priority Entered Acknowledged InitialedCBC w Diff STAT 10:04/17/2019 10:22 Scar CallejasN. P.A.-C;CMP STAT 10:04/17/2019 10:22 Scar Callejas R.N. P.A.-C;Lipase STAT 10:04/17/2019 10:22 Scar Callejas R.N. P.A.-C;PT/PTT STAT 10:19 04/17/2019 10:29 Scar CallejasN. P.A.-C;Troponin-T STAT 10:04/17/2019 10:22 Scar Callejas R.N. P.A.-C;TSH STAT 10:04/17/2019 10:22 Scar Callejas R.N. P.A.-C;D-Dimer STAT 10:04/17/2019 10:22 Scar Callejas R.N. P.A.-C;Rapid Strep Screen STAT 10:19 04/17/2019 10:22 Scar Callejas R.N. P.A.-C;Influenza Nasal A B STAT 10:04/17/2019 10:22 Scar CallejasN. P.A.-C;DIAGNOSTIC STUDY ORDERSOrder Description Priority Entered Acknowledged Initialed 2 OrderSheet [facility] Emergency Department [address] [place] [address] Phone #: ext- [phone] 04/17/2019 09:25 Patient: BOGDAN DE LA ROSA Sex: F : 1990 Age: 29yMEDICATION/IV/DRIP/FLUID ORDERSOrder Description Priority Entered Acknowledged InitialedIV NS : Bolus 500 10:04/17/2019 Cancelled: Patient Refusal 12:03mL, then 125 mL/hr Nora VossN. P.A.-C;GENERAL ORDERSOrder Description Priority Entered Acknowledged InitialedCardiac Monitor 10:04/17/2019 10:21 Júnior(continuous) Scar Chopra R.N. P.A.-C;EKG 10:04/17/2019 10:29 Scar Callejas R.N. P.A.-C;NPO 10:04/17/2019 10:21 Scar Callejas R.N., P.A.-C;Obtain Old EKG 10:19 04/17/2019 10:29 Scar Callejas R.N., P.A.-C;Obtain Old Records 10:19 04/17/2019 10:29 Scar Callejas R.N., P.A.-C;Pulse oximeter 10:19 04/17/2019 10:21 Júnior,(Continuous) Scar Chopra R.N., P.A.-C;Saline Lock 10:19 04/17/2019 10:29 Scar Callejas R.N., P.A.-C;Vitals 10:19 04/17/2019 10:22 Scar Callejas R.N., P.A.-C;[Electronically signed by Nora Senior R.N. (12:05 04/17/2019)][Electronically signed by Scar Parra P.A.-C (23:55 04/17/2019)][Electronically locked by Nora Senior R.N. (12:05 04/17/2019)] Name Value Range Interpretation Code Description Data Sabrina rce(s) Supporting Document(s) ID Date Data Source [id number] 04/17/2019 09:35:00 AM EST [facility] 1 Medication Reconciliation Report [facility] Emergency Department [address] [place] [address] Phone #: ext- [phone] 04/17/2019 09:25 Patient: BOGDAN DE LA ROSA Sex: F : 1990 Age: 29yWeight: 95.2 kgHeight/Length: 60 in.BMI: 41.0ALLERGIES: No Known Drug AllergyThe patient's Home Medications are listed below:CONTINUE TAKING THE FOLLOWING MEDICATIONS: Albuterol Sulfate HFA Inhalation 2 puffs, prn Augmentin Oral 875 mg, 2x a day Cetirizine HCl Oral 10 mg, daily Rangel nase Allergy Relief Nasal 2 sprays, 2x a day Lexapro Oral 10 mg, daily Omeprazole Oral 40 mg, 2x a day predniSONE Oral 60 mg, x5 days Singulair Oral 10 mg, daily Symbicort Inhalation (160-4.5 mcg/act) 2 puffs, 2x a dayThe source(s) of the original Home Medication information:patientThe following Medications were given to the patient in the Emergency Department:None.The following Medications were prescribed to the patient:None. Name Value Range Interpretation Code Description Data Sabrina e(s) Supporting Document(s) ID Date Data Source [id number] 04/17/2019 09:35:00 AM [facility] 1 Medication Administration Record [facility] Emergency Department [address] [place] [address] Phone #: ext- [phone] 04/17/2019 09:25 Patient: BOGDAN DE LA ROSA Sex: F : 1990 Age: 29yWeight: 95.2 kgHeight/Length: 60 inBMI: 41ALLERGIES: No Known Drug AllergyDate/Time Medication Administered Medication Ordered Name Value Range Interpretation Code Description Data Sabrina [facility](s) Supporting Document(s) ID Date Data Source [id number] 04/17/2019 09:35:00 AM [facility] 1 General Instructions [facility] Emergency Department [address] [place] [address] Phone #: ext- [phone] 04/17/2019 09:25 Patient: BOGDAN DE LA ROSA Sex: F : 1990 Age: 29yAcute bacterial bronchitis. (Continue with meds as perviously rx'ed).INSTRUCTIONSTake Tylenol (Acetaminophen) or Motrin (Ibuprofen) as needed for fever control. Take medicationaccording to label instructions. Do not work for three days.Drink plenty of fluids. No dietary restrictions. Do not smoke.(Recommend to utilize OTC Motrin and Tylenol to control inflammation and pain management.Recommend to follow the instructions on the bottle and not to exceed.).Your Current Medications: Your current home medications have been reviewed.CONTINUE TAKING THE FOLLOWING MEDICATIONS:Albuterol Sulfate HFA Inhalation : 2 puffs, prn.Augmentin Oral : 875 mg 2x a day.Cetirizine HCl Oral : 10 mg daily.Flonase Allergy Relief Nasal : 2 sprays 2x a day.Lexapro Oral : 10 mg daily.Omeprazole Oral : 40 mg 2x a day.predniSONE Oral : 60 mg, Started: 04/16/19, x5 days.Singulair Oral : 10 mg daily.Symbicort Inhalation : Aerosol 160-4.5 mcg/act, 2 puffs 2x a day.Prescription monitor program consulted by me due to This report was requested by: Scar Sánchez #: [id number]. Prescription does not exceed state maximum supply of medicationsFollow-up:Return to the emergency department as needed. Follow up with your healthcare provider in about threedays if not better. Call for an appointment.Understanding of the discharge instructions verbalized by patient. ADDITIONAL INFORMATIONBronchitis, Antibiotic Treatment (Adult) 2 General Instructions [facility] Emergency Department [address] [place] [address] Phone #: ext- [phone] 04/17/2019 09:25 Patient: BOGDAN DE LA ROSA Sex: F : 1990 Age: 29yBronchitis is an infection of the air passages (bronchial tubes) in your lungs. It often occurs when youhave a cold. This illness is contagious during the first few days and is spread through the air bycoughing and sneezing, or by direct contact (touching the sick person and then touching your owneyes, nose, or mouth).Symptoms of bronchitis include cough with mucus (phlegm) and low-grade fever. Bronchitis usuallylasts 7 to 14 days. Mild cases can be treated with simple home remedies. More severe infection istreated with an antibiotic.Home careFollow these guidelines when caring for yourself at home: If your symptoms are severe, rest at home for the first 2 to 3 days. When you go back to your usual activities, don't let yourself get too tired. Don't smoke. Also stay away from secondhand smoke. You may use tiay-wnp-khjvulo medicines to control fever or pain, unless another medicine 3 General Instructions [facility] Emergency Department [address] [place] [address] Phone #: ext- [phone] 04/17/2019 09:25 Patient: BOGDAN DE LA ROSA Sex: F : 1990 Age: 29y was prescribed. If you have chronic liver or kidney disease or have ever had a stomach ulcer or gastrointestinal bleeding, talk with your healthcare provider before using these medicines. Also talk to your provider if you are taking medicine to prevent blood clots. Aspirin should never be given to anyone younger than 18 who is ill with a viral infection or fever. It may cause severe liver or brain damage. Your appetite may be low, so a light diet is fine. Stay well hydrated by drinking 6 to 8 glasses of fluids per day. This includes water, soft drinks, sports drinks, juices, tea, or soup. Extra fluids will help loosen mucus in your nose and lungs. Jacj-ygg-pyeaarv cough, cold, and sore-throat medicines will not shorten the length of the illness, but they may be helpful to reduce your symptoms. Don't use decongestants if you have high blood pressure. Finish all antibiotic medicine. Do this even if you are feeling better after only a few days.Follow-up careFollow up with your healthcare provider, or as advised. If you had an X-ray or ECG(electrocardiogram), a specialist will review it. You will be told of any new test results that may affectyour care.If you are age 65 or older, if you smoke, or if you have a chronic lung disease or condition that affectsyour immune system, ask your healthcare provider about getting a pneumococcal vaccine and ayearly flu shot (influenza vaccine).When to seek medical adviceCall your healthcare provider right away if any of these occur: Fever of 100.4F (38C) or higher, or as directed by your healthcare provider Coughing up more sputum Weakness, drowsiness, headache, facial pain, ear pain, or a stiff neckCall 911Call 911 if any of these occur. Coughing up blood Weakness, drowsiness, headache, or stiff neck that get worse Trouble breathing, wheezing, or pain with breathing 4 General Instructions [facility] Emergency Department [address] [place] [address] Phone #: ext- [phone] 04/17/2019 09:25 Patient: BOGDAN DE LA ROSA Sex: F : 1990 Age: 29y [id number] [employer] [place] [address]. All rights reserved. This information is not intended as asubstitute for professional medical care. Always follow your healthcare professional's instructions. You have been given the following additional information: Bronchitis, Antibiotic Treatment (Adult) Do not work for three days.(Electronically signed by Scar Parra P.A.-C 04/17/2019 23:55) Name Value Range Interpretation Code Description Data Sabrina rce(s) Supporting Document(s) ID Date Data Source [id number] 04/17/2019 09:35:00 AM EST [facility] 1 Clinical Report - Nurses [facility] Emergency Department [address] [place] [address] Phone #: ext- [phone] 04/17/2019 09:25 Patient: BOGDAN DE LA ROSA Sex: F : 1990 Age: 29yTRIAGEArrived by private vehicle. Historian: patient. Accompanied by son.Triage time: late entry - 09:04/17/2019. Acuity: LEVEL 3.Chief Complaint: CHEST PAIN and SHORTNESS OF BREATH.Alert. No acute distress.This started yesterday. ( Pt states she started having CP/SOB yesterday, was seen at [facility], andxray/EKG appeared well and was d/c on Augmentin and prednisone for bronchitis. Pt states since then ithas been the same, and is unable to lay down because of the pain.). 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 Infection suspected/documented. (09:33 04/17/2019). --:04/17/19Nora Senior R.N.09:28 04/17/19. BP: 129/87. MAP: 101. HR: 89. RR: 18. O2 saturation: 100%. Temp: 97.9 F. Pain levelnow: 7/10. --09:33 04/17/19 Nora Senior R.N.Weight: 95.2 kg stated. Height/Length: 60 inches Per Patient. BMI: 41. --09:24 04/17/19 Nora Senior R.N.MedicationsOmeprazole Oral 40 mg, 2x a day. --:04/17/19 Nora Senior R.N. Symbicort Inhalation (Aerosol 160- 4.5 mcg/act) 2 puffs, 2x a day. --:04/17/19 Nora Senior R.N. Lexapro Oral 10 mg, daily. --09:04/17/19 Nora Senior R.N. Singulair Oral 10 mg, daily. --:04/17/19 Nora Senior R.N. Augmentin Oral 875 mg, 2x a day. --09:04/17/19 Nora Senior R.N. Cetirizine HCl Oral 10 mg, daily. --09:04/17/19 Nora Senior R.N. Albuterol Sulfate HFA Inhalation 2 puffs, as needed. --:04/17/19 Nora Senior R.N. Flonase Allergy Relief Nasal 2 sprays, 2x a day. --:04/17/19 Nora Senior R.N. predniSONE Oral 60 mg, , x5 days, started 04/16/19. --:04/17/19 Nora Senior R.N.AllergiesNo Known Drug Allergy. --:04/17/19 Nora Senior R.N.PROBLEMS:Bronchitis.Asthma. 2 Clinical Report - Nurses [facility] Emergency Department [address] [place] [address] Phone #: ext- [phone] 04/17/2019 09:25 Patient: BOGDAN DE LA ROSA Sex: F : 1990 Age: 29yAlle rgic Rhinitis. --09:32 04/17/19 Nora Senior R.N.Medication/allergy information source: the patient. --09:33 04/17/19 Nora Senior R.N.ADDITIONAL SURGERIES:Cholecystectomy.Colonoscopy. (X2).Endoscopy.Right leg surgery.Vocal chord biopsy. --09:32 04/17/19 Nora Senior R.N.HistoryPAST MEDICAL HX: Immunizations: up-to-date. Last normal menstrual period now.SOCIAL HX: Current every day light tobacco smoker (cigarette)- less than 1/2 a pack per day. Occasionalalcohol use. No drug use. She was offered HIV testing but declined. Patient education was provided.She was offered hepatitis C testing but declined. Patient education was provided. She has not traveledoutside the [place]Infectious disease exposure: No infectious disease exposure. Patient is not a known carrier of tuberculosis,hepatitis, HIV, MRSA or VRE. Patient is not a known carrier of CRE.SELF HARM ASSESSMENT: Self harm assessment was performed. The patient answered "no" to thequestion(s) "Do you have thoughts of harming or killing yourself?" and "Do you have a plan for harming orkilling yourself?".ABUSE ASSESSMENT: Abuse assessment. The patient had positive responses to the question(s) "Do youfeel safe in your home?". Abuse denied. No suspicion of abuse. No report of abuse.NUTRITIONAL RISK ASSESSMENT: The nutritional risk assessment revealed no deficiencies.FUNCTIONAL ASSESSMENT: Functional assessment: no impairments noted.LEARNING NEEDS ASSESSMENT: The learning needs assessment revealed no barriers.FALL RISK ASSESSMENT: Fall risk assessment completed. No risk factors identified.SKIN INTEGRITY ASSESSMENT: Skin integrity risk assessment completed. No skin integrity riskidentified. --04/17/19 Nora Senior R.N.InterventionsIdentification band on patient. --04/17/19 Nora Senior R.N.PHYSICAL ASSESSMENTAmbulatory to room. 3 Clinical Report - Nurses [facility] Emergency Department [address] [place] [address] Phone #: ext- [phone] 04/17/2019 09:25 Patient: BOGDAN DE LA ROSA Sex: F : 1990 Age: 29y GENERAL / NEURO / PSYCH: Alert. Oriented X 4. Appears in no acute distress. HEENT: Mucous membranes are pink. RESPIRATORY: Respirations not labored. Chest pain reproducible with palpation of the anterior chest wall (right chest pain). Chest wall tenderness. Breath sounds within normal limits. ( dry cough). CVS: Normal sinus rhythm noted. Heart sounds within normal limits. Pulses within normal limits. Capillary refill less than 2 seconds. GI / : Abdomen soft and nontender. EXTREMITIES: No lower extremity edema. SKIN: Skin is warm and dry. Normal skin turgor. Skin is non-tender. --09:36 04/17/19 Nora Senior R.N.NURSING PROGRESS NOTESCardiac monitor, pulse oximeter and NIBP monitor placed on patient; monitor alarms on; monitor stripadded to paper chart. Patient gowned. Head of bed elevated 60 degrees. Reassurance given. Threepatient identifiers checked. Call light placed in reach. Side rails up x 2. Bed placed in lowest position.Brakes of bed on. Patient ready for evaluation- ED physician notified. --09:36 04/17/19 Nora Senior R.N. EKG time: (late entry - 09:26 04/17/2019). EKG was ordered, performed by a nurse and shown to the ED physician. --09:36 04/17/19 Nora Senior R.N. 09:44 04/17/2019 Site #1 started via IV in the left antecubital space with an 20g angiocath, with aseptic technique and good blood return; one attempt. Blood drawn: rainbow set. Labeled in the presence of the patient and sent to the lab. Saline lock flushed with 10 mL saline. --09:44 04/17/19 Nora Senior R.N. 10:06 04/17/19. BP: 129/83. MAP: 98. HR: 74. RR: 16. O2 saturation: 100%. --10:06 04/17/19 Elizabeth PORTILLO [facility] Tech1 10:29 04/17/2019 Started bag #1 500 mL IV Fluids IV NS; at 1000 mL/hr over 1 hour(s) via site #1 --10:29 04/17/19 Keysha Callejas R.N. Charted on wrong patient. --12:03 04/17/19 Keysha Callejas R.N. EKG time: (09:26 04/17/2019). --10:30 04/17/19 Keysha Callejas R.N. 10:41 04/17/19. BP: 122/72. MAP: 88. HR: 61. RR: 16. O2 saturation: 99%. --10:41 04/17/19 Nora Senior R.N. 11:30 04/17/19. BP: 104/64. MAP: 77. HR: 65. RR: 16. O2 saturation: 100%. Temp: 98.6 F. --11:31 04/17/19 [facility] Tech, [facility] Tech1.DISPOSITION / DISCHARGE Condition at departure: stable. No learning barriers present. Discharge instructions provided and reviewed with the patient. Reviewed warnings (please see paper copy). Work note given. Patient verbalized understanding. Written instructions provided in Slovak. The patient was discharged by the physician assistant tennis professional. She was discharged home. She left ambulatory and via private vehicle. Patient 4 Clinical Report - Nurses [facility] Emergency Department [address] [place] [address] Phone #: ext- [phone] 04/17/2019 09:25 Patient: BOGDAN DE LA ROSA Jennifer cct#: [id number] Sex: F : 1990 Age: 29y driving. --12:00 04/17/19 Nora Senior R.N. 11:58 04/17/19. BP: 128/88. MAP: 101. HR: 70. RR: 18. O2 saturation: 100% on room air. Temp: 98.8 F (tympanic). Pain level now: 09/02. --12:00 04/17/19 Nora Senior R.N. Departure time: 12:00 04/17/2019. --12:00 04/17/19 Nora Senior R.N. 11:55 04/17/2019 Site #1 removed upon discharge. Bandage applied (2x2 and tape, no bleeding noted, pt tolerated well, clean dry and intact upon d/c.). --12:01 04/17/19 Nora Senior R.N.Locked/Released at 04/17/2019 12:05 by Nora Senior R.N. Name Value Range Interpretation Code Description Data Sabrina rce(s) Supporting Document(s) ID Date Data Source [id number] 04/17/2019 09:35:00 AM EST [facility] 1 Clinical Report - Physicians/Mid Levels [facility] Emergency Department [address] [place] [address] Phone #: ext- [phone] 04/17/2019 09:25 Patient: BOGDAN DE LA ROSA Sex: F : 1990 Age: 29y Time Seen: 10:39 04/17/2019; initial patient contact, initial documentation. Arrived- By private vehicle. Historian- patient.HISTORY OF PRESENT ILLNESS Chief Complaint: COUGH. This started yesterday and is still present. The illness is described as moderate. The patient has had a cough, chest discomfort, a sore throat, nasal congestion and sinus pressure. She has had sinus drainage, fever, muscle aches and a nasal discharge. No sputum production, difficulty breathing, chest pain, hoarseness or ear pain. Additional history - No known contact with a sick individual. (Pt states she started having CP/SOB yesterday, was seen at [facility], and xray/EKG appeared well and was d/c on Augmentin and prednisone for asmatic bronchitis and sinusitits. Pt states since then it has been the same, and is unable to lay down because of the pain. Sts no labs were drawn; only ECG and CXR.). Similar symptoms previously. None. Recent medical care: The patient was seen recently at another facility in the emergency department.REVIEW OF SYSTEMSLast normal menstrual period now. No headache, eye discomfort, nausea, vomiting or diarrhea. Noabdominal pain, hay fever, pedal edema, calf pain or difficulty with urination. No skin rash, enlarged lymphnodes, joint pain or tick bite.PAST HISTORYSee nurses notes. Problems: Bronchitis. Asthma. Allergic Rhinitis. Additional Surgeries: Cholecystectomy. Colonoscopy. . Endoscopy. Right leg surgery. Vocal chord biopsy. 2 Clinical Report - Physicians/Mid Levels [facility] Emergency Department [address] [place] [address] Phone #: ext- [phone] 04/17/2019 09:25 Patient: BOGDAN DE LA ROSA Sex: F : 1990 Age: 29y Medications: predniSONE Oral 60 mg, , x5 days, started 03/27 06/14. Flonase Allergy Relief Nasal 2 sprays, 2x a day. Albuterol Sulfate HFA Inhalation 2 puffs, as needed. Cetirizine HCl Oral 10 mg, daily. Augmentin Oral 875 mg, 2x a day. Singulair Oral 10 mg, daily. Lexapro Oral 10 mg, daily. Symbicort Inhalation (Aerosol 160-4.5 mcg/act) 2 puffs, 2x a day. Omeprazole Oral 40 mg, 2x a day. Allergies: No Known Drug Allergy.SOCIAL HISTORYLight tobacco smoker- less than 1/2 a pack per day. Occasional alcohol use. No drug use.ADDITIONAL NOTESThe nursing notes have been reviewed.PHYSICAL EXAMVital Signs: 04/17/2019 09:28 BP: 129/87. MAP: 101. HR: 89. RR: 18. O2 saturation: 100%. Temp: 97.9F. Pain level now: 7/10. Have been reviewed and appear to be correct. Oxygen saturation normal.Appearance: Alert. No acute distress.Eyes: Eyelids appear normal to inspection. Conjunctivae and sclerae appear normal to inspection.Corneas appear normal to inspection. Pupils equal, round and reactive to light. EOMs intact. Periorbitalareas appear normal to inspection. Anterior chambers clear.ENT: Airway intact. Nose normal. Nares normal. Pharyngeal erythema. Moist mucous membranes.Uvula midline. Voice normal.Ear (right): There is dullness of the tympanic membrane and abnormal insufflation. No tenderness of theauricle, pain with movement of the auricle, lymphadenopathy, erythema of the external canal or swelling ofthe external canal. No material in the external canal. Right ear normal. Normal mastoid. No hearingdeficit.Ear (left): There is dullness of the tympanic membrane and abnormal insufflation. No tenderness of theauricle, pain with movement of the auricle, lymphadenopathy, erythema of the external canal or swelling ofthe external canal. No material in the external canal. Left ear normal. Normal mastoid. No hearingdeficit.Neck: Normal inspection. Neck supple.CVS: Normal heart rate and rhythm. No JVD present. Pulses normal. Capillary refill normal. Strongperipheral pulses. Heart sounds normal. Pulses: right radial 2+; left radial 2+; right dorsalis pedis 2+; le ftdorsalis pedis 2+; left posterior tibial pulse.Respiratory: Chest normal on inspection. No respiratory distress. Unlabored respirations. Lungs clear.Good chest movement. Breath sounds normal and equal. Chest nontender.Abdomen: Normal inspection. Soft and nontender. Bowel sounds normal.Skin: Skin warm and dry. 3 Clinical Report - Physicians/Mid Levels [facility] Emergency Department [address] [place] [address] Phone #: ext- [phone] 04/17/2019 09:25 Patient: BOGDAN DE LA ROSA [facility]#: [id number] Sex: F : 1990 Age: 29y Extremities: Extremities exhibit normal ROM. No clubbing present or lower extremity edema. No calf tenderness. No lower extremity edema. Neuro: Awake. Alert. Mood/affect normal. No motor deficit. No sensory deficit. Psych: Cognition normal. Thought process and content normal. Insight and judgement normal.LABS, X-RAYS, AND EKGEKG: Normal sinus rhythm. Rate: 87. NSR; Normal ECG Discussed and reviewed with attending. Laboratory Tests: CBC w Diff: (OBED: 04/17/2019 09:40) ( MsgRcvd 04/17/2019 10:45) Final results Test Result Flag Units (Reference) CBC W/AUTOMATED DIFF COMPLETE BLOOD COUNT WBC 11.6 H 10/uL (4.2 - 11.0) RBC 4.51 10/uL (4.20 - 5.40) HEMOGLOBIN 13.1 g/dL (12.0 - 16.0) HEMATOCRIT 40.2 % (37.0 - 47.0) MCV 89.1 fL (81.0 - 101) MCH 29.0 pg (27.0 - 34.0) MCHC 32.6 g/dL (31.0 - 36.0) RDW 13.5 % (11.5 - 14.5) PLATELETS 221 10/uL (150 - 450) MPV 10.3 fL (7.4 - 10.4) NEUT 63.5 % (37.0 - 80.0) LYMPH 27.1 % (25.0 - 40.0) MONO 7.4 % (3.0 - 8.0) EOS 1.3 % (0.0 - 7.0) BASO 0.3 % (0.0 - 2.5) %IG 0.4 H % (0.0 - 0.0) %NRBC 0.0 % (0.0 - 0.0) #NEUT 7.36 H 10/uL (2.00 - 6.90) #LYMPH 3.15 10/uL (0.60 - 3.40) #MONO 0.86 10/uL (0.00 - 0.90) #EOS 0.15 10/uL (0.00 - 0.70) #BASO 0.04 10/uL (0.00 - 0.20) #IG 0.05 10/uL (0.00 - 0.10) #NRBC 0.00 10/uL (0.00 - 0.00) MANUAL DIFF NOT INDICATED RBC MORPH NOT INDICATED CMP: (OBED: 04/17/2019 09:40) ( MsgRcvd 04/17/2019 11:01) Final results Test Result Flag Units (Reference) COMPREHENSIVE METABOLIC PANEL COMPREHENSIVE METABOLIC PANEL SODIUM 141 mEq/L (134 - 153) POTASSIUM 3.9 mEq/L (3.6 - 5.0) CHLORIDE 103 mEq/L (98 - 107) CO2 22 MEQ/L (22 - 30) GLUCOSE 124 H MG/DL (65 - 110) BUN 12 MG/DL (7 - 21) CREATININE 0.9 MG/DL (0.7 - 1.5) BUN/CREAT 13 (8 - 27) TOTAL PROTEIN 7.0 G/DL (6.3 - 8.2) ALBUMIN 4.3 G/DL (3.9 - 5.0) GLOBULIN 2.7 GM/DL (2.4 - 3.2) A/G RATIO 1.6 (0.8 - 2.0) CALCIUM 9.6 MG/DL (8.4 - 10.2) TOTAL BILI <0.7 MG/DL (0.2 - 1.3) ALKALINE PHOS 73 U/L (38 - 126) 4 Clinical Report - Physicians/Mid Levels [facility] Emergency Department [address] [place] [address] Phone #: ext- [phone] 04/17/2019 09:25 Patient: BOGDAN DE LA ROSA Sex: F : 1990 Age: 29y SGOT/AST 15 U/L (5 - 40) SGPT/ALT 19 U/L (7 - 56) ANION GAP 16.0 mmol/L (8.0 - 16.0) AGE 29 yrs NON-AA GFR >60 mL/min AFR AMER GFR >60 mL/min Male GFR Interprentation 20-49 yrs >60 mL/min Sgybdc12-83 yrs >56 mL/min Normal 60-69 yrs >49 mL/min Normal 70-79yrs>42 mL/min Normal 80 and above >35 mL/min Normal Female GFRInterpretation 20-39 yrs >60 mL/min Normal 40-49 yrs >58 mL/minNormal 50-59 yrs >51 mL/min Normal 60-69 yrs >45 mL/min Awtvhp98-33 yrs >39 mL/min Normal 80 and above >32 mL/min NormalLipase: (OBED: 04/17/2019 09:40) ( [facility] 04/17/2019 10:56) Final results Test Result Flag Units (Reference) LIPASE 28 U/L (13 - 60)PT/PTT: (OBED: 04/17/2019 09:40) ( [facility] 04/17/2019 10:46) Final results Test Result Flag Units (Reference) PROTIME 12.2 SECONDS (11.0 - 15.5) INR 0.90 L (0.93 - 1.23) PTT 27.9 SECONDS (24.8 - 36.7) \\BLDo\\INR INTERPRETATION\\BLDx\\ Therapeutic range for Coumadin andrelated oral anticoagulants. -International Normalized Ratio (INR): 2.0 - 3.0 for VenousThrombosis, Pulmonary Embolus, Tissue heart valves, Acute IN Atrial Fibrillation, Valvular heart diseaseand recurrent Systemic Embolism. -International Normalized Ratio (INR): 2.5 - 3.5 forMechanical Prosthetic valve. \\BLDo\\PTT INTERPRETATION\\BLDx\\Critical results for patients not on therapy: >50 seconds Critical results for patients on therapy:>119 seconds Therapeutic range for patients on therapy: 58 - 90 seconds Coag studies fromline draws may not be accurate due to Heparin and other interferences.Troponin-T: (OBED: 04/17/2019 09:40) ( [facility] 04/17/2019 11:01) Final results Test Result Flag Units (Reference) TROPONIN T 0.01 NG/ML (0.00 - 0.10) TROPONIN T0.1 ng/ml Recommended as the clinical threshold value forTroponin T.TSH: (OBED: 04/17/2019 09:40) ( [facility] 04/17/2019 11:06) Final results Test Result Flag Units (Reference) TSH 2.65 uIU/mL (0.47 - 5.01)D-Dimer: (OBED: 04/17/2019 09:40) ( [facility] 04/17/2019 10:46) Final results Test Result Flag Units (Reference) D-DIMER QUANT 0.36 ug/mL (0.27 - 0.50)Rapid Strep Screen: (OBED: 04/17/2019 10:24) ( [facility] 04/17/2019 10:45) Final results Test Result Flag Units (Reference) RAPID STREP NEGATIVE (NORMAL: NEGAT RAPID STREP REENTER NEGATIVE (NORMAL: NEGAT { PROCEDURAL CONTROL VALID ){ KIT LOT #[id number] ){ KIT EXP DATE 02/24/20 )TheStrep A 2 assay utilizes isothermal nucleic acid amplification technology fothe qualitative detection of GroupA Strep bacterial nucleic acid in throat swabspecimens.All negative test results no longer need to be confirmedwith a culture. Follow-up testing requiring a culture is necessary if clinical symptoms persist, or inthe eventof an acute rheumatic fever outbreak. A culture will need to beordered by the Qualified [facility] Provider.Negativeresults do not preclude infection with Group A Strep and should not beused as the sole basis for treatment.Influenza Nasal A B: (OBED: 04/17/2019 10:24) ( [facility] 04/17/2019 11:00) Final results Test Result Flag Units (Reference) INFLUENZA A NEGATIVE (NORMAL: NEGAT 5 Clinical Report - Physicians/Mid Levels [facility] Emergency Department [address] [place] [address] Phone #: ext- [phone] 04/17/2019 09:25 -------- Patient: BOGDAN DE LA ROSA Sex: F : 1990 Age: 29y INFLUENZA B NEGATIVE (NORMAL: NEGAT INFLUENZA A REENTER NEGATIVE (N ORMAL: NEGAT INFLUENZA B REENTER NEGATIVE (NORMAL: NEGAT PROCEDURAL CONTROL VALID KIT LOT # _[id number] 04/17/19.PB . KIT EXP DATE _12/06/19 04/17/19.PB .The Influenza A utilizing an isothermal nucleic acid amplification technology for thequalitati ve detection of influenza A and B viral RNA.Negative results do not preclude influenza virus infection and should not beused as the sole basis for diagnosis, treatment or other patient managementdecisions..PROGRESS AND PROCEDURESCourse of Care: VSS, NAD, AOx3, interacting well and appropriately, no use of accessory muscle, able tospeak full sentences, stable, non-toxic looking. Enter room and pt lying peacefully in bed in NAD. Patient stable. Denies any new issues, concerns, or complaints. JAYLENE calixto NV intact b/l UE and LE. Will obtain labs and review previous documentation. Pending results. 11:13 04/17/19. Reviewed CXR results from yesterday (NACPD). Pending D-Dimer for potentially furhter imaging. Currently on ABX for tx. Penidng results. Reviewed results. Enter room and patient lying peacefully in bed in NAD. Patient stable. Denies any new issues, concerns, or complaints. Discussed results with pt. Discussed tx plan with pt. Discussed and counseled on stable condition. Discussed importance of a f/u with PCP. Discussed return to ER criteria. Answered their questions. Indicates and verbalizes that they understand, agree, and will comply with above. Denies any new questions or con cerns. Patient has capacity to understand. Discharge decision based on the following: patient's condition is stable; patient's exam is stable; social support is adequate; transportation is available; follow-up is available. Discussed of OTC Motrin and Tylenol to control inflammation and pain management. Informed to follow directions on bottle that are appropriate for age and/or weight. Old ED records reviewed. Disposition: Discharged home in good and improved condition. Condition: good and stable.CLINICAL IMPRESSION Acute bacterial bronchitis. (Continue with meds as perviously rx'ed). 6 Clinical Report - Physicians/Mid Levels [facility] Emergency Department [address] [place] [address] Phone #: ext- [phone] 04/17/2019 09:25 Patient: BOGDAN DE LA ROSA Sex: F : 1990 Age: 29yINSTRUCTIONS Take Tylenol (Acetaminophen) or Motrin (Ibuprofen) as needed for fever control. Take medication according to label instructions. Do not work for three days. Drink plenty of fluids. No dietary restrictions. Do not smoke. (Recommend to utilize OTC Motrin and Tylenol to control inflammation and pain management. Recommend to follow the instructions on the bottle and not to exceed.). Your Current Medications: Your current home medications have been reviewed. CONTINUE TAKING THE FOLLOWING MEDICATIONS: Albuterol Sulfate HFA Inhalation : 2 puffs, prn. Augmentin Oral : 875 mg 2x a day. Cetirizine HCl Oral : 10 mg daily. Flonase Allergy Relief Nasal : 2 sprays 2x a day. Lexapro Oral : 10 mg daily. Omeprazole Oral : 40 mg 2x a day. predniSONE Oral : 60 mg, Started: 04/16/19, x5 days. Singulair Oral : 10 mg daily. Symbicort Inhalation : Aerosol 160-4.5 mcg/act, 2 puffs 2x a day. Prescription monitor program consulted by me due to This report was requested by: Scar Parra Reference #: [id number]. Prescription does not exceed state maximum supply of medications Follow-up: Return to the emergency department as needed. Follow up with your healthcare provider in about three days if not better. Call for an appointment. Understanding of the discharge instructions verbalized by patient.(Electronically signed by Scar Parra P.A.-C 04/17/2019 23:55) Name Value Range Interpretation Code Description Data Sabrina rce(s) Supporting Document(s) ID Date Data Source [id number] 04/17/2019 11:00:00 AM [facility] Name Value Range Interpretation Code Description Data Sabrina rce(s) Supporting Document(s) Influenza virus A Ag [Presence] in Nasopharynx by Immunoassa y NEGATIVE NORMAL: NEGATIVE [facility] Influenza virus B Ag [Presence] in Nasopharynx by Immunoassa y NEGATIVE NORMAL: NEGATIVE [facility] NEGATIVENEGATIVE PROCEDURAL CO NTROL VALID KIT LOT # _[id number] 04/17/19.1099.PB . KIT EXP DATE _12/06/19 04/17/19.1099.PB .The Influenza A & B assay is a rapid molecular in vitro diagnostic testutilizing an isothermal nucleic acid amplification technology for thequalitative detection of influenza A and B viral RNA.Negative results do not preclude influenza virus infection and should not beused as the sole basis for diagnosis, treatment or other patient managementdecisions. ID Date Data Source [id number] 04/17/2019 10:45:00 AM [facility] Name Value Range Interpretation Code Description Data [facility] rce(s) Supporting Document(s) RAPID STREP NEGATIVE NORMAL: NEGATIVE [facility] RAPID STREP REENTER NEGATIVE NORMAL: NEGATIVE [facility] { PROCEDURAL CONTROL VALID ){ KIT LOT # [id number] ){ KIT EXP DATE 02/24/20 )The Strep A 2 assay utilizes isothermal nucleic acid amplification technology fothe qualitative detection of Group A Strep bacterial nucleic acid in throat swabspecimens.All negative test results no longer need to be confirmed with a culture. Follow-up testing requiring a culture is necessary if clinical symptoms persist, or inthe event of an acute rheumatic fever outbreak. A culture will need to beordered by the Qualified Medical Provider.Negative results do not preclude infection with Group A Strep and should not beused as the sole basis for treatment. ID Date Data Source [id number] 04/17/2019 11:06:00 AM [facility] Name Value Range Interpretation Code Description Data Sabrina rce(s) Supporting Document(s) Thyrotropin [Units/volume] in Serum or Plasma by Detec tion limit <= 0.05 mIU/L 2.65 uIU/mL 0.47 - 5.01 [facility] ID Date Data Source [id number] 04/17/2019 11:01:00 AM [facility] Name Value Range Interpretation Code Description Data Sabrina rce(s) Supporting Document(s) TROPONIN T 0.01 NG/ML 0.00 - 0.10 [facility] spital TROPONIN T0.1 ng/ml Recommended as the c linical threshold value forTroponin T. ID Date Data Source [id number] 04/17/2019 11:01:00 AM EST [facility] Name Value Range Interpretation Code Description Data Sabrina [facility](s) Supporting Document(s) COMPREHENSIVE METABOLIC PANEL [facility] COMPREHENSIVE METABOLIC PANEL Sodium [Moles/volume] in Serum or Plasma 141 mEq/L 134 - 153 [facility] Potassium [Moles/volume] in Serum or Plasma 3.9 mEq/L 3.6 - 5.0 [facility] Chloride [Moles/volume] in Serum or Plasma 103 mEq/L 98 - 107 [facility] Carbon dioxide, total [Moles/volume] in Serum or Plasma 22 MEQ/L 22 - 30 [facility] Glucose [Mass/volume] in Serum or Plasma 124 MG/DL 65 - 110 H [facility] BUN 12 MG/DL 7 - 21 [facility] al Creatinine [Mass/volume] in Serum or Plasma 0.9 MG/DL 0.7 - 1.5 [facility] BUN/CREAT 13 8 - 27 [facility] Protein [Mass/volume] in Serum or Plasma 7.0 G/DL 6.3 - 8.2 [facility] Albumin [Mass/volume] in Serum or Plasma 4.3 G/DL 3.9 - 5.0 [facility] Globulin [Mass/volume] in Serum by calculation 2.7 GM/DL 2.4 - 3.2 [facility] A/G RATIO 1.6 0.8 - 2.0 [facility] Calcium [Mass/volume] in Serum or Plasma 9.6 MG/DL 8.4 - 10.2 [facility] Bilirubin.total [Mass/volume] in Serum or Plasma <0.7 MG/DL 0.2 - 1.3 [facility] Alkaline phosphatase [Enzymatic activity/volume] in Serum or Plasma 73 U/L 38 - 126 [facility] Aspartate aminotransferase [Enzymatic activity/volume] in Serum or Plasma 15 U/L 5 - 40 [facility] Alanine aminotransferase [Enzymatic activity/volume] in Seru m or Plasma 19 U/L 7 - 56 [facility] Anion gap 3 in Serum or Plasma 16.0 mmol/L 8.0 - 16.0 [facility] AGE 29 yrs [facility] NON-AA GFR >60 mL/min [facility] ital AFR AMER GFR >60 mL/min [facility] Male GFR In terprentation 20-49 yrs >60 mL/min Normal 50-59 yrs >56 mL/min Normal 60-69 yrs >49 mL/min Normal 70-79yrs >42 mL/min Normal 80 and above >35 mL/min Normal Female GFR Interpretation 20-39 yrs >60 mL/min Normal 40-49 yrs >58 mL/min Normal 50-59 yrs >51 mL/min Normal 60-69 yrs >45 mL/min Normal 70-79 yrs >39 mL/min Normal 80 and above >32 mL/min Normal ID Date Data Source [id number] 04/17/2019 10:56:00 AM [facility] Name Value Range Interpretation Code Description Data Sabrina rce(s) Supporting Document(s) Lipase [Enzymatic activity/volume] in Serum or Plasma 28 U/L 13 - 60 [facility] ID Date Data Source [id number] 04/17/2019 10:46:00 AM [facility] Name Value Range Interpretation Code Description Data Sabrina rce(s) Supporting Document(s) Fibrin D-dimer FEU [Mass/volume] in Platelet poor plasma 0.36 ug /mL 0.27 - 0.50 [facility] ID Date Data Source [id number] 04/17/2019 10:46:00 AM [facility] Name Value Range Interpretation Code Description Data Sabrina rce(s) Supporting Document(s) Prothrombin time (PT) 12.2 SECONDS 11.0 - 15.5 [facility] INR in Platelet poor plasma by Coagulation assay 0.90 0.93 - 1. 23 L [facility] aPTT in Blood by Coagulation assay 27.9 SECONDS 24.8 - 36.7 [facility] \\BLDo\\INR INTERPRETATION\\BLDx\\ Therapeutic range for Coumadin and related oral anticoagulants. - International Normalized Ratio (INR): 2.0 - 3.0 for Venous Thrombosis, Pulmonary Embolus, Tissue heart valves, Acute IN Atrial Fibrillation, Valvular heart disease and recurrent Systemic Embolism. - International Normalized Ratio (INR): 2.5 - 3.5 for Mechanical Prosthetic valve. \\BLDo\\PTT INTERPRETATION\\BLDx\\ Critical results for patients not on therapy: >50 seconds Critical results for patients on therapy: >119 seconds Therapeutic range for patients on therapy: 58 - 90 seconds Coag jameel dies from line draws may not be accurate due to Heparin and other interferences. ID Date Data Source [id number] 04/17/2019 10:44:00 AM EST [facility] Name Value Range Interpretation Code Description Data Sabrina rce(s) Supporting Document(s) CBC W/AUTOMATED DIFF [facility] COMPLETE BLOOD COUNT Leukocytes [#/volume] in Blood by Automated count 11.6 10^3/uL 4.2 - 11.0 H [facility] Erythrocytes [#/volume] in Blood by Automated count 4.51 10^6/uL 4. 20 - 5.40 [facility] Hemoglobin [Mass/volume] in Blood 13.1 g/dL 12.0 - 16.0 [facility] Hematocrit [Volume Fraction] of Blood by Automated count 40.2 % 3 7.0 - 47.0 [facility] Erythrocyte mean corpuscular volume [Entitic volume] by Auto mated count 89.1 fL 81.0 - 101 [facility] Erythrocyte mean corpuscular hemoglobin [Entitic mass] by Automated count 29.0 pg 27.0 - 34.0 [facility] Erythrocyte mean corpuscular hemoglobin concentration [Mass/volume] by Automated count 32.6 g/dL 31.0 - 36.0 [facility] Erythrocyte distribution width [Ratio] by Automated count 13.5 % 11.5 - 14.5 [facility] Platelets [#/volume] in Blood by Automated count 221 10^3/uL 150 - 45 0 [facility] Platelet mean volume [Entitic volume] in Blood by Automated count 10.3 fL 7.4 - 10.4 [facility] Neutrophils/100 leukocytes in Blood by Automated count 63.5 % 37. 0 - 80.0 [facility] Lymphocytes/100 leukocytes in Blood by Manual count 27.1 % 25.0 - 40.0 [facility] Monocytes/100 leukocytes in Blood by Automated count 7.4 % 3.0 - 8.0 [facility] Eosinophils/100 leukocytes in Blood by Automated count 1.3 % 0.0 - 7.0 [facility] Basophils/100 leukocytes in Blood by Automated count 0.3 % 0.0 - 2.5 [facility] %IG 0.4 % 0.0 - 0.0 H [facility] al %NRBC 0.0 % 0.0 - 0.0 [facility] al Neutrophils [#/volume] in Blood by Automated count 7.36 10^3/uL 2.00 - 6.90 H [facility] Lymphocytes [#/volume] in Blood by Automated count 3.15 10^3/uL 0.60 - 3.40 [facility] Monocytes [#/volume] in Blood by Automated count 0.86 10^3/uL 0.00 - 0.90 [facility] Eosinophils [#/volume] in Blood by Automated count 0.15 10^3/uL 0.00 - 0.70 [facility] Basophils [#/volume] in Blood by Automated count 0.04 10^3/uL 0.00 - 0.20 [facility] #IG 0.05 10^3/uL 0.00 - 0.10 [facility] #NRBC 0.00 10^3/uL 0.00 - 0.00 [facility] MANUAL DIFF NOT INDICATED [facility] RBC MORPH NOT INDICATED [facility] Procedure Social History Code Duration Value Status Description Data Source(s ) Smoking 09/07/2019 12:00:00 AM EDT Former Smoker completed Former Smoker [id number] ([facility]) Smoking 09/07/2019 12:00:00 AM EDT Former Smoker completed Former Smoker [id number] ([facility]) Vital Signs ID Date Data Source UNK Name Value Range Interpretation Code Description Data Source(s) Body mass index (BMI) [Ratio] 42.8 kg/m2 42.8 k g/m2 MED[facility] ([facility]) Diastolic blood pressure 73 mm[Hg] 73 mm[Hg] MED[facility] ([facility]) Systolic blood pressure 122 mm[Hg] 122 mm[Hg] M EDENT ([facility]) Respiratory rate 20 /min 20 /min MED[facility] ( [facility]) Heart rate 73 /min 73 /min [facility] ([facility] Body height 61 [in_i] 61 [in_i] MEDENT ([facility] 5'1" Body weight 226.50 [lb_av] 226.50 [lb_av] MEDEN T ([facility]) Diastolic blood pressure 76 mm[Hg] 76 mm[Hg] eCW1 ([facility]) Systolic blood pressure 122 mm[Hg] 122 mm[Hg] e CW1 ([facility]) Body temperature 98.5 [degF] 98.5 [degF] eCW1 ( [facility]) Respiratory rate 20 /min 20 /min eCW1 ([facility]) Heart rate 134 /min 134 /min eCW1 ([facility]) Body mass index (BMI) [Ratio] 44.72 kg/m2 44.72 kg/m2 eCW1 ([facility]) Body height [in_us] eCW1 ([facility]) Body weight Measured 229.0 [lb_av] 229.0 [lb_av ] eCW1 ([facility]) Body mass index (BMI) [Ratio] 43.0 kg/m2 43.0 k g/m2 MEDENT ([facility]) Body weight 220.00 [lb_av] 220.00 [lb_av] MEDEN T ([facility]) Body height 60 [in_i] 60 [in_i] MEDENT ([facility]) 5'0" Body temperature 98.6 [degF] 98.6 [degF] MEDENT ([facility]) Body mass index (BMI) [Ratio] 38.8 kg/m2 38.8 k g/m2 MED[facility] ([facility]) Diastolic blood pressure 90 mm[Hg] 90 mm[Hg] MED[facility] ([facility]) Systolic blood pressure 121 mm[Hg] 121 mm[Hg] M EDENT ([facility]) Respiratory rate 22 /min 22 /min MED[facility] ( [facility]) Heart rate 114 /min 114 /min [facility] ([facility] Body height 62 [in_i] 62 [in_i] [facility] ([facility] 5'2" Body weight 212.38 [lb_av] 212.38 [lb_av] MEDEN T ([facility]) Diastolic blood pressure 78 mm[Hg] 78 mm[Hg] eCW1 ([facility]) Systolic blood pressure 118 mm[Hg] 118 mm[Hg] e CW1 ([facility]) Body temperature 97.4 [degF] 97.4 [degF] eCW1 ( [facility]) Respiratory rate 18 /min 18 /min eCW1 ([facility]) Heart rate 118 /min 118 /min eCW1 ([facility]) Body mass index (BMI) [Ratio] 41.20 kg/m2 41.20 kg/m2 eCW1 ([facility]) Body height [in_us] eCW1 ([facility]) Body weight Measured 211.0 [lb_av] 211.0 [lb_av ] eCW1 ([facility]) Body mass index (BMI) [Ratio] 41.0 kg/m2 41.0 k g/m2 MED[facility] ([facility] Heart rate 77 /min 77 /min MED[facility] ([facility] Diastolic blood pressure 89 mm[Hg] 89 mm[Hg] MEDENT ([facility] Systolic blood pressure 142 mm[Hg] 142 mm[Hg] M EDENT ([facility] Body weight 210.00 [lb_av] 210.00 [lb_av] MEDEN T ([facility] Body height 60 [in_i] 60 [in_i] MED[facility] ([facility] 5'0" Diastolic blood pressure 84 mm[Hg] 84 mm[Hg] eCW1 ([facility]) Systolic blood pressure 124 mm[Hg] 124 mm[Hg] e CW1 ([facility]) Body temperature 97.3 [degF] 97.3 [degF] eCW1 ( [facility]) Respiratory rate 20 /min 20 /min eCW1 ([facility]) Heart rate 115 /min 115 /min eCW1 ([facility]) Body mass index (BMI) [Ratio] 40.07 kg/m2 40.07 kg/m2 eCW1 ([facility]) Body height [in_us] eCW1 ([facility]) Body weight Measured 205.2 [lb_av] 205.2 [lb_av ] eCW1 ([facility]) Patient Treatment Plan of Care Planned Activity Planned Date Details Description Data Source (s) Escitalopram 20 MG Oral Tablet 08/29/2019 12:00:00 AM EDT eCW1 ([facility]) Escitalopram 20 MG Oral Tablet 08/29/2019 12:00:00 AM EDT eCW1 ([facility]) Escitalopram 20 MG Oral Tablet 08/29/2019 12:00:00 AM EDT eCW1 ([facility]) Escitalopram 20 MG Oral Tablet 08/29/2019 12:00:00 AM EDT eCW1 ([facility]) Nicotine 7 MG/24HR 06/08/2019 12:00:00 AM EST eCW1 ([facility]) Ondansetron 8 MG Oral Tablet 04/21/2019 12:00:00 AM EST eCW1 ([facility])
--- OUTSIDE RECORDS SUMMARY | 2020-06-13 09:30 | CCD ---
Author Author [facility] Organization [facility] Address Unknown Phone Unavailable Care Team Providers Care Customer Support Manager Name Role Phone VERÓNICA SCHULTZ MD Unavailable [...] Unavailable ABOUGMALIA GUILLORY MD Unavailable Unavailable ABOUGMALIA GULILORY MD Unavailable Unavailable ABOUGMALIA GUILLORY MD Unavailable [...] Unavailable Unavailable AMERNATH, BETTYEAPPA MD Unavailable Unavailable [place], L Elissa LAUNDRY ATTENDANT Unavailable Unavailable Georgie, L Elissa LAUNDRY ATTENDANT Unavailable Unavailable [place], L Elissa LAUNDRY ATTENDANT Unavailable Unavailable [place], L Elissa LAUNDRY ATTENDANT Unavailable Unavailable Georgie, L Elissa LAUNDRY ATTENDANT Unavailable Unavailable Georgie, L Elissa LAUNDRY ATTENDANT Unavailable Unavailable [place], L Elissa LAUNDRY ATTENDANT Unavailable Unavailable Georgie, L Elissa LAUNDRY ATTENDANT Unavailable Unavailable [place], L Elissa LAUNDRY ATTENDANT Unavailable Unavailable [place], L Elissa LAUNDRY ATTENDANT Unavailable Unavailable Georgie, L Elissa LAUNDRY ATTENDANT Unavailable Unavailable [place], L Elissa LAUNDRY ATTENDANT Unavailable Unavailable Georgie, L Elissa LAUNDRY ATTENDANT Unavailable Unavailable Georgie, L Elissa LAUNDRY ATTENDANT Unavailable Unavailable [place], L Elissa LAUNDRY ATTENDANT Unavailable Unavailable [place], L Elissa LAUNDRY ATTENDANT Unavailable Unavailable [place], L Elissa LAUNDRY ATTENDANT Unavailable Unavailable Georgie, L Elissa LAUNDRY ATTENDANT Unavailable Unavailable Georgie, L Elissa LAUNDRY ATTENDANT Unavailable Unavailable [place], L Elissa LAUNDRY ATTENDANT Unavailable Unavailable [place], L Elissa LAUNDRY ATTENDANT Unavailable Unavailable [place], L Elissa LAUNDRY ATTENDANT Unavailable Unavailable [place], L Elissa LAUNDRY ATTENDANT Unavailable Unavailable Georgie, L Elissa LAUNDRY ATTENDANT Unavailable Unavailable Georgie, L Elissa LAUNDRY ATTENDANT Unavailable Unavailable Georgie, L Elissa LAUNDRY ATTENDANT Unavailable Unavailable [place], L Elissa LAUNDRY ATTENDANT Unavailable Unavailable Georgie, L Elissa LAUNDRY ATTENDANT Unavailable Unavailable Georgie, L Elissa LAUNDRY ATTENDANT Unavailable Unavailable [place], L Elissa LAUNDRY ATTENDANT Unavailable Unavailable Georgie, L Elissa LAUNDRY ATTENDANT Unavailable Unavailable [place], L Elissa LAUNDRY ATTENDANT Unavailable Unavailable Georgie, L Elissa LAUNDRY ATTENDANT Unavailable Unavailable Re-disclosure Warning The records that [...] is protected by Article 27-F of the [facility] Public Health law. If you continue you may have access to information: Regarding HIV / AIDS; Provided by facilities licensed or operated by the [facility] Office of Mental Health; or Provided by the [facility] Office for People With Developmental Disabilities. If such information is present, then the following [facility] mandated warning applies: This information has been [...] law may result in a fine or skilled nursing sentence or both. A general authorization for the release of medical or other information is NOT sufficient authorization for further disc losure. Allergies and Adverse Reactions Type Description Substance Reaction Status Data Source(s ) Drug allergy BuPROPion HCl ER (XL) Bupropion nausea, PERSAUD, dizziness Active eCW1 ([facility]) No Known Drug Allergies No Known Drug Allergies [facility] Drug allergy Drug allergy NKDA [facility] ([facility] Family History Family Member Name Family Member Gender Family Member Status Date o f Status Description Data Source(s) Unknown Unknown Problem MEDENT ([facility], ) Encounters Encounter Providers Location Date Indications Data Source(s ) Outpatient Attender: Jennifer COTTO Physical Therapy 03:30:00 PM EDT [facility] [place] [address] [address] 01/16/2020 12:00:00 AM EDT [facility] [place] [address] [address] 12/22/2019 12:00:00 AM EDT [facility]CW1 [facility]) Outpatient Attender: Joseph Zapata MD Physical Therapy 09:45:00 AM EDT MEDENT ([facility]) Outpatient Referrer: DIGNA KEVIN MD 10/13/2019 05:05:00 AM EDT [facility] Imaging Outpatient Attender: ISHAAN PACHECO [facility] Office 09/24 01:45:00 PM EDT MEDENT ([facility] [address], [facility] [address] 10/02/2019 12:00:00 AM EDT eCW1 ([facility]) [address] [address] 09/23/2019 12:00:00 AM EDT eCW1 ([facility]) Outpatient Attender: VERÓNICA SCHULTZ MD Main Office 09/20/2019 09:30:00 AM EDT MED[facility] ([facility]) [address] [place] [address] 09/07/2019 12:00:00 AM EDT eCW1 ([facility]) Outpatient Referrer: DIGNA KEVIN MD 09/06/2019 05:09:00 AM EDT [facility] Radiology Imaging OFFICE OUTPATIENT NEW 30 MINUTES Attender: Joseph Zapata MD Phy sical Therapy 09/01/2019 10:00:00 AM EDT MEDENT ([facility]) [address] [place] [address] 08/29/2019 12:00:00 AM EDT [facility]CW1 [facility] [address] [place] [address] 08/29/2019 12:00:00 AM EDT eCW1 ([facility]) [address] [place] [address] 08/24/2019 12:00:00 AM EDT [facility] [address] [address] 07/17/2019 12:00:00 AM EDT [facility]CW1 ([facility]) Outpatient Attender: ISHAAN PACHECO [facility] Office 06/24 01:45:00 PM EDT MED[facility] ([facility] [address] [address] 06/27/2019 12:00:00 AM EST eCW1 ([facility]) Outpatient Attender: Elissa BERRIOS Main Office 06/21/2019 01:00:0 0 PM EST MEDENT ([facility]) [address] [place] [address] 06/08/2019 12:00:00 AM EST eCW1 ([facility]) Outpatient Attender: ISHAAN PACHECO [facility] Office 07/2019 12:00:00 PM EST [facility]ENT ([facility] Outpatient Referrer: DIGNA KEVIN MD 05/04/2019 02:43:00 PM EST [facility] Outpatient Referrer: DIGNA KEVIN MD 05/04/2019 07:04:00 AM EST [facility] [address] [place] [address] 05/01/2019 12:00:00 AM EST [facility]CW1 ([facility]) [address] [place] [address] 05/01/2019 12:00:00 AM EST eCW1 ([facility]) [address] [place] [address] 04/21/2019 12:00:00 AM EST [facility]CW1 ([facility]) [address] [address] 04/20/2019 12:00:00 AM EST eCW1 ([facility]) Emergency Attender: VIVIEN MEDRANO MD 1 06/18/2018 09:35:00 AM EST - 04/17/2019 12:00:00 PM EST [facility] Patient discharged. [facility] [place] [address] [address] 04/17/2019 12:00:00 AM EST eCW1 [facility]) [facility] [place] [address] [place] [address] 04/17/2019 12:00:00 AM EST eCW1 ([facility]) Medications Medication Brand Name Start Date Product [...] MEDENT ( [facility]) 160-4.5 mcg/actuation 09/20/2019 12:00:00 AM EDT HFA [...] 12:00:00 AM EDT active 1 tablet eCW1 ([facility]) Escitalopram 20 MG Oral Tablet Escitalopram Oxalate 20 MG Escitalopram Oxalate 20 MG 08/29/2019 12:00:00 AM EDT 1.0 {tablet} activ e Escitalopram Oxalate 20 MG eCW1 ([facility]) Escitalopram 20 MG Oral Tablet Escitalopram Oxalate 20 MG Escitalopram Oxalate 20 MG 08/29/2019 12:00:00 AM EDT 1.0 {tablet} activ e Escitalopram Oxalate 20 MG eCW1 ([facility]) Escitalopram 20 MG Oral Tablet Escitalopram Oxalate 20 MG Escitalopram Oxalate 20 MG 08/29/2019 12:00:00 AM EDT active 1 tablet eCW1 ([facility]) 600 mg 08/21/2019 12:00:00 AM EDT tablet [...] active MEDENT ([facility]) montelukast 10 MG Oral Tablet MONTELUKAST SODIUM [...] MEDENT ( [facility]) Betamethasone 0.5 MG/ML Topical Cream Betamethasone Dipropio [...] {patch_to_skin} suspended Nicotine 7 MG/ 24HR eCW1 ([facility]) Nicotine 7 MG/24HR Nicotine 7 MG/24HR 06/08/2019 12:00:00 AM EST active 1 patch to skin eCW1 ([facility]) Nicotine 7 MG/24HR Nicotine 7 MG/24HR 06/08/2019 12:00:00 AM EST suspended 1 patch to skin eCW1 ([facility]) Nicotine 7 MG/24HR Nicotine 7 MG/24HR 06/08/2019 12:00:00 AM EST 1.0 {patch_to_skin} suspended Nicotine 7 MG/ 24HR eCW1 ([facility]) 250 mg 06/01/2019 12:00:00 AM EST tablet [...] EST active 1 tablet as needed eC ([facility]) 8 mg 04/21/2019 12:00:00 AM EST tablet [...] EST active 1 tablet as needed eC ([facility]) benzonatate 100 MG Oral Capsule BENZONATATE 04/21/2019 [...] type / Coverage type Policy ID Covered constitution party ID Covered constitution party's relationship to aguiar Policy Aguiar Plan Information [facility] [id number] SP [id number] 500 [facility] [id number] S [id number] LIF[employer] BENEFIT SOLUTIONS U [id number] Child [id number] SELF PAY ONLY [id number] SP [id number] SELF PAY ONLY [id number] SP [id number] [facility] [id number] SP [id number] [employer] [place] Medicaid [id number] Self [id number] ANSI-Commercial [id number] ANSI-Not a Secondary Insurance [id number] [employer] [place] Medicaid [id number] Self [id number] ANSI-Not a Secondary Insurance [id number] ANSI-Commercial [id number] ANSI-Not a Secondary Insurance [id number] ANSI-Commercial [id number] ANSI-Commercial [id number] ANSI-Not a Secondary Insurance [id number] [place] PPO [id number] SP [id number] MEDICAID [id number] SP [id number] ANSI-Not a Secondary Insurance [id number] ANSI-Commercial [id number] ANSI-Commercial [id number] ANSI-Not a Secondary Insurance [id number] JEFF [id number] SP [id number] Medicaid [place] Medicaid [id number] Self [id number] ANSI-Commercial [id number] ANSI-Not a Secondary Insurance [id number] ANSI-Not a Secondary Insurance [id number] ANSI-Commercial [id number] MEDICAID [id number] Gladys [id number] ANSI-Commercial [id number] ANSI-Not a Secondary Insurance [id number] ANSI-Commercial [id number] ANSI-Not a Secondary Insurance [id number] BCBS [facility] HMO [id number] SP [id number] SELF PAY ONLY UNAVAILABLE UNAV AILABLE ANSI-Not a Secondary Insurance [id number] ANSI-Commercial [id number] ANSI-Commercial [id number] ANSI-Not a Secondary Insurance [id number] ANSI-Not a Secondary Insurance [id number] ANSI-Commercial [id number] ANSI-Not a Secondary Insurance [id number] ANSI-Commercial [id number] ANSI-Not a Secondary Insurance [id number] ANSI-Commercial [id number] ANSI-Not a Secondary Insurance [id number] ANSI-Commercial [id number] ANSI-Commercial [id number] ANSI-Not a Secondary Insurance [id number] ANSI-Commercial [id number] ANSI-Not a Secondary Insurance [id number] ANSI-Commercial [id number] ANSI-Not a Secondary Insurance [id number] ANSI-Commercial [id number] ANSI-Not a Secondary Insurance [id number] ANSI-Commercial [id number] ANSI-Not a Secondary Insurance [id number] ANSI-Commercial [id number] ANSI-Not a Secondary Insurance [id number] Self Pay P UNAVAILABLE S UNAVAILA BLE SELF PAY ONLY - [id number] SP JEFF [id number] SP [id number] [facility] [place] P [id number] S [id number] Medicaid S [id number] S [id number] Managed Care [place] P [id number] S [id number] [place] Medicaid [id number] Self [id number] [place] MEDICAID [id number] [facility]S [id number] SP [id number] LIFETIME BENEFIT SOLUTIONS [id number] SP [id number] [facility] [place] [facility] [id number] HU2 [id number] PGBA [facility] O [id number] S [id number] LIFETIME BENEFIT SOLUTIO O [id number] O [id number] N REGIONAL CLAIMS [place] -O/P [id number] 19 [id number] [facility] -O/P [id number] 18 [id number] Problems, Conditions, and Diagnoses Code Display Name Description Problem Type Effective Dates Data Source(s) 899276274 Gastroesophageal reflux disease Gastroesophageal reflux disease Problem 09/20/2019 12:00:00 AM EDT MEDENT ([facility] [id number] Uncomplicated moderate persistent asthma Uncomplicated moderate persistent asthma Problem 09/20/2019 12:00:00 AM EDT MEDENT ([facility]) 0773935 Tinea pedis Tinea pedis Problem 06/05/2019 12:0 0:00 AM EST - 07/22/2019 12:00:00 AM EDT MEDENT ([facility] [id number] Primary focal hyperhidrosis Primary focal hyperhidrosi s Problem 06/05/2019 12:00:00 AM EST - 07/22/2019 12:00:00 AM EDT MEDENT ([facility] 239548670 Onychomycosis Onychomycosis Problem 06/05/2019 12:00:00 AM EST MEDENT ([facility] R45482 Nicotine dependence, cigarettes, uncompl icated Nicotine dependence, cigarettes, uncomplicated Diagnosis 04/17/2019 09:35:00 AM [facility] U08077 Unspecified asthma, uncomplicated Unspecified as thma, uncomplicated Diagnosis 04/17/2019 09:35:[address] [facility] J209 Acute bronchitis, unspecified Acute bronchitis, unspec ified Diagnosis 04/17/2019 09:35:[address] [facility] R05 Cough Cough Diagnosis 04/17/2019 09:35:[address] [facility] Surgeries/Procedures Procedure Description Date Indications Data Source(s) INJECTION 1 TENDON SHEATH/LIGAMENT APONEUROSIS 12:00:00 AM EDT MEDENT ([facility] Ultrasound, Each 15 Min, Constant Attendance 0 12:00:00 AM EDT MEDENT ([facility] ) THERAPEUTIC PX 1/> AREAS EACH 15 MIN EXERCISES 12:00:00 AM EDT MEDENT ([facility] ) MANUAL THERAPY TQS 1/> REGIONS EACH 15 MINUTES 12:00:00 AM EDT MEDENT ([facility] ) Ultrasound, Each 15 Min, Constant Attendance 0 12:00:00 AM EDT MEDENT ([facility] ) THERAPEUTIC PX 1/> AREAS EACH 15 MIN EXERCISES 12:00:00 AM EDT MEDENT ([facility] ) MANUAL THERAPY TQS 1/> REGIONS EACH 15 MINUTES 12:00:00 AM EDT MEDENT ([facility] ) MANUAL THERAPY TQS 1/> REGIONS EACH 15 MINUTES 12:00:00 AM EDT MEDENT ([facility] ) THERAPEUTIC PX 1/> AREAS EACH 15 MIN EXERCISES 12:00:00 AM EDT MEDENT ([facility] ) Ultrasound, Each 15 Min, Constant Attendance 0 12:00:00 AM EDT MEDENT ([facility] ) Ultrasound, Each 15 Min, Constant Attendance 0 12:00:00 AM EDT MEDENT ([facility] ) THERAPEUTIC PX 1/> AREAS EACH 15 MIN EXERCISES 12:00:00 AM EDT MEDENT ([facility] ) MANUAL THERAPY TQS 1/> REGIONS EACH 15 MINUTES 12:00:00 AM EDT MEDENT ([facility] ) Ultrasound, Each 15 Min, Constant Attendance 0 12:00:00 AM EDT MEDENT ([facility] ) THERAPEUTIC PX 1/> AREAS EACH 15 MIN EXERCISES 12:00:00 AM EDT MEDENT ([facility] ) MANUAL THERAPY TQS 1/> REGIONS EACH 15 MINUTES 12:00:00 AM EDT MEDENT ([facility] ) BRNCDILAT RSPSE SPMTRY PRE&POST-BRNCDILAT ADMN 12:00:00 AM EDT [facility] ([facility] NITRIC OXIDE GAS DETERMINATION 09/20/2019 12:0 0:00 AM EDT MED[facility] ([facility]) Physical Therapy Eval - Low Complexity 09/07/2019 12:0 0:00 AM EDT MEDENT ([facility] ) INJECTION 1 TENDON SHEATH/LIGAMENT APONEUROSIS 12:00:00 AM EDT MEDENT ([facility] ) RADEX HAND MINIMUM 3 VIEWS 09/01/2019 12:00:00 AM EDT MEDENT ([facility] ) NITRIC OXIDE GAS DETERMINATION 06/21/2019 12:0 0:00 AM EST [facility] ([facility]) Results ID Date Data Source [id number] 06/10/2020 01:00:00 PM EST [facility] Name Value Range Interpretation Code Description Data Sabrina rce(s) Supporting Document(s) SARS coronavirus 2 RNA Not Detected [facility] [place] This lab was ordered by [facility] and reported by [facility]. ID Date Data Source [id number]/06/2020 12:00:00 AM EST [facility] Name Value Range Interpretation Code Description Data Sabrina rce(s) Supporting Document(s) SARS coronavirus 2 Ag NEGATIVE [facility] This lab was ordered by [facility] and reported by [facility]. ID Date Data Source [id number] 06/03/2020 05:20:00 AM EST [facility] Name Value Range Interpretation Code Description Data Sabrina rce(s) Supporting Document(s) SARS coronavirus 2 RNA Not Detected [facility] [place] This lab was ordered by [facility] and reported by [facility]. ID Date Data Source [id number] 06/02/2020 12:00:00 AM EST [facility] Name Value Range Interpretation Code Description Data Sabrina rce(s) Supporting Document(s) SARS-CoV2 Rapid Antigen Negative [facility] This lab was reported by [facility]. ID Date Data Source [id number] 05/23/2020 12:00:00 AM EST [facility] Name Value Range Interpretation Code Description Data Sabrina rce(s) Supporting Document(s) SARS coronavirus 2 Ag NEGATIVE [facility] This lab was ordered by [facility] and reported by [facility]. ID Date Data Source [id number] 05/20/2020 06:12:00 AM EST [facility] Name Value Range Interpretation Code Description Data Sabrina rce(s) Supporting Document(s) SARS coronavirus 2 RNA Not Detected [facility] [place] This lab was ordered by [facility] and reported by [facility]. ID Date Data Source [id number] 05/16/2020 12:00:00 AM EST [facility] Name Value Range Interpretation Code Description Data Sabrina rce(s) Supporting Document(s) SARS coronavirus 2 Ag Negative [facility] This lab was ordered by [facility] and reported by [facility]. ID Date Data Source [id number] 05/13/2020 06:04:00 AM EST [facility] Name Value Range Interpretation Code Description Data Sabrina rce(s) Supporting Document(s) SARS coronavirus 2 RNA Not Detected [facility] [place] This lab was ordered by [facility] and reported by [facility]. ID Date Data Source [id number] 05/09/2020 12:00:00 AM EST [facility] Name Value Range Interpretation Code Description Data Sabrina rce(s) Supporting Document(s) SARS-CoV2 Rapid Antigen Negative [facility] This lab was ordered by [facility] and reported by [facility]. ID Date Data Source [id number] 05/06/2020 08:00:00 AM EST [facility] Name Value Range Interpretation Code Description Data Sabrina rce(s) Supporting Document(s) SARS coronavirus 2 RNA Not Detected [facility] [place] This lab was ordered by [facility] and reported by [facility]. ID Date Data Source [id number] 04/29/2020 05:30:00 AM EST [facility] Name Value Range Interpretation Code Description Data Sabrina rce(s) Supporting Document(s) SARS coronavirus 2 RNA [facility] This lab was ordered by [facility] and reported by [facility]. ID Date Data Source [id number] 04/22/2020 06:30:00 AM EST [facility] Name Value Range Interpretation Code Description Data Sabrina rce(s) Supporting Document(s) SARS coronavirus 2 RNA [facility] This lab was ordered by [facility] and reported by [facility]. ID Date Data Source [id number] 04/17/2020 11:27:00 AM EST [facility] Name Value Range Interpretation Code Description Data Sabrina rce(s) Supporting Document(s) SARS coronavirus 2 RNA [facility] This lab was ordered by [facility] and reported by [facility]. ID Date Data Source [id number] 04/08/2020 08:00:00 AM EST [facility] Name Value Range Interpretation Code Description Data Sabrina rce(s) Supporting Document(s) SARS coronavirus 2 RNA [facility] This lab was ordered by [facility] and reported by [facility]. ID Date Data Source [id number] 04/04/2020 12:40:00 PM EST [facility] Name Value Range Interpretation Code Description Data Sabrina rce(s) Supporting Document(s) SARS coronavirus 2 RNA [facility] This lab was ordered by [facility] and reported by [facility]. ID Date Data Source [id number] 03/25/2020 07:00:00 AM EST [facility] Name Value Range Interpretation Code Description Data Sabrina rce(s) Supporting Document(s) SARS coronavirus 2 RNA [facility] This lab was ordered by [facility] and reported by [facility]. ID Date Data Source [id number] 03/18/2020 09:00:00 AM EST [facility] Name Value Range Interpretation Code Description Data Sabrina rce(s) Supporting Document(s) SARS coronavirus 2 RNA [facility] This lab was ordered by [facility] and reported by [facility]. ID Date Data Source [id number] 03/11/2020 10:14:00 AM EST [facility] Name Value Range Interpretation Code Description Data Sabrina rce(s) Supporting Document(s) SARS coronavirus 2 RNA [facility] This lab was ordered by [facility] and reported by [facility]. ID Date Data Source [id number] 03/04/2020 08:00:00 AM EST [facility] Name Value Range Interpretation Code Description Data Sabrina rce(s) Supporting Document(s) SARS coronavirus 2 RNA [facility] This lab was ordered by [facility] and reported by [facility]. ID Date Data Source [id number] 02/26/2020 06:00:00 AM EST [facility] Name Value Range Interpretation Code Description Data Sabrina rce(s) Supporting Document(s) SARS coronavirus 2 RNA [facility] This lab was ordered by [facility] and reported by [facility]. ID Date Data Source [id number] 02/19/2020 05:30:00 AM EDT [facility] Name Value Range Interpretation Code Description Data Sabrina rce(s) Supporting Document(s) SARS coronavirus 2 RNA [facility] This lab was ordered by [facility] and reported by [facility]. ID Date Data Source [id number] 02/12/2020 02:38:00 PM EDT [facility] Name Value Range Interpretation Code Description Data Sabrina rce(s) Supporting Document(s) SARS coronavirus 2 RNA [facility] This lab was ordered by [facility] and reported by [facility]. ID Date Data Source [id number] 02/08/2020 10:00:00 AM EDT [facility] Name Value Range Interpretation Code Description Data Sabrina rce(s) Supporting Document(s) SARS coronavirus 2 RNA [facility] This lab was ordered by [facility] and reported by [facility]. ID Date Data Source [id number] 01/29/2020 06:00:00 AM EDT [facility] Name Value Range Interpretation Code Description Data Sabrina rce(s) Supporting Document(s) SARS coronavirus 2 RNA [facility] This lab was ordered by [facility] and reported by [facility]. ID Date Data Source [id number] 01/22/2020 06:48:00 AM EDT [facility] Name Value Range Interpretation Code Description Data Sabrina rce(s) Supporting Document(s) SARS coronavirus 2 RNA [facility] This lab was ordered by [facility] and reported by [facility]. ID Date Data Source [id number] 01/08/2020 10:00:00 AM EDT [facility] Name Value Range Interpretation Code Description Data Sabrina rce(s) Supporting Document(s) SARS coronavirus 2 RNA [facility] This lab was ordered by [facility] and reported by [facility]. ID Date Data Source [id number] 01/03/2020 08:00:00 AM EDT [facility] Name Value Range Interpretation Code Description Data Sabrina rce(s) Supporting Document(s) SARS coronavirus 2 RNA [facility] This lab was ordered by [facility] and reported by [facility]. ID Date Data Source [id number] 12/25/2019 06:24:00 AM EDT [facility] Name Value Range Interpretation Code Description Data Sabrina rce(s) Supporting Document(s) SARS coronavirus 2 RNA [facility] This lab was ordered by [facility] and reported by [facility]. ID Date Data Source [id number] 12/18/2019 10:55:00 AM EDT [facility] Name Value Range Interpretation Code Description Data Sabrina rce(s) Supporting Document(s) SARS coronavirus 2 RNA [facility] This lab was ordered by [facility] and reported by [facility]. ID Date Data Source [id number] 12/14/2019 02:12:00 PM EDT [facility] Name Value Range Interpretation Code Description Data Sabrina rce(s) Supporting Document(s) SARS coronavirus 2 RNA [facility] This lab was ordered by [facility] and reported by [facility]. ID Date Data Source [id number] 11/13/2019 10:00:00 AM EDT [facility] Name Value Range Interpretation Code Description Data Sabrina rce(s) Supporting Document(s) SARS coronavirus 2 RNA [facility] This lab was ordered by [facility] and reported by [facility]. ID Date Data Source [id number] 11/06/2019 01:19:00 PM EDT [facility] Name Value Range Interpretation Code Description Data Sabrina rce(s) Supporting Document(s) SARS coronavirus 2 RNA [facility] This lab was ordered by [facility] and reported by [facility]. ID Date Data Source [id number] 10/30/2019 03:16:00 PM EDT [facility] Name Value Range Interpretation Code Description Data Sabrina rce(s) Supporting Document(s) SARS coronavirus 2 RNA [facility] This lab was ordered by [facility] and reported by [facility]. ID Date Data Source [id number] 10/23/2019 01:35:00 PM EDT [facility] Name Value Range Interpretation Code Description Data Sabrina rce(s) Supporting Document(s) SARS CORONAVIRUS 2 RNA [facility] This lab was ordered by [facility] and reported by [facility]. ID Date Data Source [id number] 10/16/2019 09:09:00 AM EDT [facility] Name Value Range Interpretation Code Description Data Sabrina rce(s) Supporting Document(s) SARS CORONAVIRUS 2 RNA [facility] This lab was ordered by [facility] and reported by [facility]. ID Date Data Source [id number] 05/30/2019 02:21:00 PM EST [facility] (Corey Mckay.P.M., [...] Little GFR Left</content>
<content>ESRD GFR <15 on SURGICAL SERVICES COORDINATOR</content>
<content></content> Sodium Level 139 meq/L 136-145 [facility] [...] ([facility]y [facility]ay[facility] ID Date Data Source [id number] 05/30/2019 02:21:00 PM EST [facility] ([facility] Name Value Range Interpretation Code Description Data Sabrina rce(s) Supporting Document(s) Ast/Sgot 16 U/L 7-37 [facility] ([facility]y Chowdhury [facility] Bilirubin,Total 0.6 mg/dL 0.2-1.0 [facility] (Demetris Pacheco [facility] Alt/SGPT 34 U/L 12-78 [facility] ([facility]y Chowdhury [facility] Alkaline Phosphatase 80 U/L 45-117 [facility] (Dolores Powers[facility] Albumin 4.2 GM/DL 3.2-5.2 [facility] (Coery Chowdhury [facility] Bilirubin,Direct 0.2 mg/dL 0.0-0.2 [facility] ([facility]olores Mckay[facility] Total Protein 7.5 GM/DL 6.4-8.2 [facility] ([facility]olores Nix[facility] Albumin/Globulin Ratio 1.27 1.00-1.93 MA [facility] (Demetris P[facility]co [facility] ID Date Data Source [id number] 05/30/2019 02:21:00 PM EST [facility] (Thuan [facility] Name Value Range Interpretation Code Description Data Sabrina rce(s) Supporting Document(s) Hemoglobin 13.6 g/dL 12.0-15.5 [facility] ([facility]y Parker[facility] Red Blood Count 4.54 10 4.00-5.40 [facility] ([facility]y Cowan[facility] White Blood Count 11.1 10 [...] Pacheco D[facility] ID Date Data Source [id number] 04/17/2019 09:35:00 AM EST [facility] 1 OrderSheet [facility] Emergency Department [address] [place] [address] Phone #: ext- [phone] 04/17/2019 09:25 [id number] Sex: F : 1990 Age: 29yWEIGHT:95.2 kg [...] Description Priority Entered Acknowledged Initialed 2 OrderSheet [facility] Emergency Department [address] [place] [address] Phone #: ext- [phone] 04/17/2019 09:25 Patient: [...] rce(s) Supporting Document(s) ID Date Data Source [id number] 04/17/2019 09:35:00 AM EST [facility] 1 Medication Reconciliation Report [facility] Emergency Department [address] [place] [address] Phone #: ext- [phone] 04/17/2019 09:25 Patient: [...] e(s) Supporting Document(s) ID Date Data Source [id number] 04/17/2019 09:35:[address] [facility] 1 Medication Administration Record [facility] Emergency Department [address] [place] [address] Phone #: ext- [phone] 04/17/2019 09:25 Patient: BOGDAN DE LA ROSA Sex: F : 1990 Age: 29yWeight: 95.2 kgHeight/Length: 60 inBMI: 41ALLERGIES: No Known Drug AllergyDate/Time Medication Administered Medication Ordered Name Value Range Interpretation Code Description Data Sabrina [facility](s) Supporting Document(s) ID Date Data Source [id number] 04/17/2019 09:35:[address] [facility] 1 General Instructions [facility] Emergency Department [address] [place] [address] Phone #: ext- [phone] 04/17/2019 09:25 Patient: [...] report was requested by: Scar Sánchez #: [id number]. Prescription does not exceed state maximum supply of medicationsFollow-up:Return to the emergency department as needed. Follow up with your healthcare provider in about threedays if not better. Call for an appointment.Understanding of the discharge instructions verbalized by patient. ADDITIONAL INFORMATIONBronchitis, Antibiotic Treatment (Adult) 2 General Instructions [facility] Emergency Department [address] [place] [address] Phone #: ext- [phone] 04/17/2019 09:25 Patient: [...] away from secondhand smoke. You may use aaat-ucs-wppweaz medicines to control fever or pain, unless another medicine 3 General Instructions [facility] Emergency Department [address] [place] [address] Phone #: ext- [phone] 04/17/2019 09:25 Patient: [...] loosen mucus in your nose and lungs. Tsbx-csc-urezffg cough, cold, and sore-throat medicines will not [...] or pain with breathing 4 General Instructions [facility] Emergency Department [address] [place] [address] Phone #: ext- [phone] 04/17/2019 09:25 Patient: BOGDAN DE LA ROSA Sex: F : 1990 Age: 29y [id number] [employer]. [address] [place] [address]. All rights reserved. This information is not intended as asubstitute for professional medical care. Always follow your healthcare professional's instructions. You have been given the following additional information: Bronchitis, Antibiotic Treatment (Adult) Do not work for three days.(Electronically signed by Scar Parra P.A.-C 04/17/2019 23:55) Name Value Range Interpretation Code Description Data Sabrina rce(s) Supporting Document(s) ID Date Data Source [id number] 04/17/2019 09:35:00 AM EST [facility] 1 Clinical Report - Nurses [facility] Emergency Department [address] [place] [address] Phone #: ext- [phone] 04/17/2019 09:25 Patient: BOGDAN DE LA ROSA Sex: F : 1990 Age: 29yTRIAGEArrived by private vehicle. Historian: patient. Accompanied by son.Triage time: late entry - 09:04/17/2019. Acuity: LEVEL 3.Chief Complaint: CHEST PAIN and SHORTNESS OF BREATH.Alert. No acute distress.This started yesterday. ( Pt states she started having CP/SOB yesterday, was seen at [facility], andxray/EKG appeared well and was d/c on Augmentin and prednisone for bronchitis. Pt states since then ithas been the same, and is unable to lay down because of the pain.). She has had difficulty breathing.Treatment PREVENTIVE MAINTENANCE COORDINATOR:(Augmentin yesterday, Prednisone yesterday.).SEPSIS SCREEN: NEGATIVE. Infection suspected/documented. [...] Senior R.N.PROBLEMS:Bronchitis.Asthma. 2 Clinical Report - Nurses [facility] Emergency Department [address] [place] [address] Phone #: ext- [phone] 04/17/2019 09:25 Patient: [...] to room. 3 Clinical Report - Nurses [facility] Emergency Department [address] [place] [address] Phone #: ext- [phone] 04/17/2019 09:25 Patient: BOGDAN DE LA ROSA [...] saturation: 100%. Temp: 98.6 F. --11:31 04/17/19 [facility] Tech, [facility] Tech1.DISPOSITION / DISCHARGE Condition at departure: stable. No learning barriers present. Discharge instructions provided and reviewed with the patient. Reviewed warnings (please see paper copy). Work note given. Patient verbalized understanding. Written instructions provided in Yi. The patient was discharged by the physician assistant spa manager. She was discharged home. She left ambulatory and via private vehicle. Patient 4 Clinical Report - Nurses [facility] Emergency Department [address] [place] [address] Phone #: ext- [phone] 04/17/2019 09:25 Patient: BOGDAN DE LA ROSA Jennifer cct#: [id number] Sex: F : 1990 Age: 29y driving. [...] rce(s) Supporting Document(s) ID Date Data Source [id number] 04/17/2019 09:35:00 AM EST [facility] 1 Clinical Report - Physicians/Mid Levels [facility] Emergency Department [address] [place] [address] Phone #: ext- [phone] 04/17/2019 09:25 Patient: [...] started having CP/SOB yesterday, was seen at [facility], and xray/EKG appeared well and was d/c [...] biopsy. 2 Clinical Report - Physicians/Mid Levels [facility] Emergency Department [address] [place] [address] Phone #: ext- [phone] 04/17/2019 09:25 Patient: BOGDAN DE LA ROSA [...] dry. 3 Clinical Report - Physicians/Mid Levels [facility] Emergency Department [address] [place] [address] Phone #: ext- [phone] 04/17/2019 09:25 Patient: BOGDAN DE LA ROSA [facility]#: [id number] Sex: F : 1990 Age: 29y Extremities: [...] 126) 4 Clinical Report - Physicians/Mid Levels [facility] Emergency Department [address] [place] [address] Phone #: ext- [phone] 04/17/2019 09:25 Patient: BOGDAN DE LA ROSA Sex: F : 1990 Age: 29y SGOT/AST 15 U/L (5 - 40) SGPT/ALT 19 U/L (7 - 56) ANION GAP 16.0 mmol/L (8.0 - 16.0) AGE 29 yrs NON-AA GFR >60 mL/min AFR AMER GFR >60 mL/min Male GFR Interprentation 20-49 yrs >60 mL/min [id number] yrs >56 mL/min Normal 60-69 yrs >49 mL/min Normal 70-79yrs>42 mL/min Normal 80 and above >35 mL/min Normal Female GFRInterpretation 20-39 yrs >60 mL/min Normal 40-49 yrs >58 mL/minNormal 50-59 yrs >51 mL/min Normal 60-69 yrs >45 mL/min Hajqyz25-26 yrs >39 mL/min Normal 80 and above >32 mL/min NormalLipase: (OBED: 04/17/2019 09:40) ( [facility] 04/17/2019 10:56) Final results Test Result Flag Units (Reference) LIPASE 28 U/L (13 - 60)PT/PTT: (OBED: 04/17/2019 09:40) ( [facility] 04/17/2019 10:46) Final results Test Result Flag Units (Reference) PROTIME 12.2 SECONDS (11.0 - 15.5) INR 0.90 L (0.93 - 1.23) PTT 27.9 SECONDS (24.8 - 36.7) \\BLDo\\INR INTERPRETATION\\BLDx\\ Therapeutic range for Coumadin andrelated oral anticoagulants. -International Normalized Ratio (INR): 2.0 - 3.0 for VenousThrombosis, Pulmonary Embolus, Tissue heart valves, Acute ID Atrial Fibrillation, Valvular heart diseaseand recurrent Systemic Embolism. -International Normalized Ratio (INR): 2.5 - 3.5 forMechanical Prosthetic valve. \\BLDo\\PTT INTERPRETATION\\BLDx\\Critical results for patients not on therapy: >50 seconds Critical results for patients on therapy:>119 seconds Therapeutic range for patients on therapy: 58 - 90 seconds Coag studies fromline draws may not be accurate due to Heparin and other interferences.Troponin-T: (OBED: 04/17/2019 09:40) ( [facility] 04/17/2019 11:01) Final results Test Result Flag Units (Reference) TROPONIN T 0.01 NG/ML (0.00 - 0.10) TROPONIN T0.1 ng/ml Recommended as the clinical threshold value forTroponin T.TSH: (OBED: 04/17/2019 09:40) ( [facility] 04/17/2019 11:06) Final results Test Result Flag Units (Reference) TSH 2.65 uIU/mL (0.47 - 5.01)D-Dimer: (OBED: 04/17/2019 09:40) ( [facility] 04/17/2019 10:46) Final results Test Result Flag Units (Reference) D-DIMER QUANT 0.36 ug/mL (0.27 - 0.50)Rapid Strep Screen: (OBED: 04/17/2019 10:24) ( [facility] 04/17/2019 10:45) Final results Test Result Flag Units (Reference) RAPID STREP NEGATIVE (NORMAL: NEGAT RAPID STREP REENTER NEGATIVE (NORMAL: NEGAT { PROCEDURAL CONTROL VALID ){ KIT LOT #[id number] ){ KIT EXP DATE 02/24/20 )TheStrep A [...] will need to beordered by the Qualified [facility] Provider.Negativeresults do not preclude infection with Group A Strep and should not beused as the sole basis for treatment.Influenza Nasal A B: (OBED: 04/17/2019 10:24) ( [facility] 04/17/2019 11:00) Final results Test Result Flag Units (Reference) INFLUENZA A NEGATIVE (NORMAL: NEGAT 5 Clinical Report - Physicians/Mid Levels [facility] Emergency Department [address] [place] [address] Phone #: ext- [phone] 04/17/2019 09:25 -------- Patient: BOGDAN DE LA [...] rx'ed). 6 Clinical Report - Physicians/Mid Levels [facility] Emergency Department [address] [place] [address] Phone #: ext- [phone] 04/17/2019 09:25 Patient: [...] was requested by: Scar Parra Reference #: [id number]. Prescription does not exceed state maximum supply [...] rce(s) Supporting Document(s) ID Date Data Source [id number] 04/17/2019 11:00:[address] [facility] Name Value Range Interpretation Code Description Data Sabrina rce(s) Supporting Document(s) Influenza virus A Ag [Presence] in Nasopharynx by Immunoassa y NEGATIVE NORMAL: NEGATIVE [facility] Influenza virus B Ag [Presence] in Nasopharynx by Immunoassa y NEGATIVE NORMAL: NEGATIVE [facility] NEGATIVENEGATIVE PROCEDURAL CO NTROL VALID KIT [...] other patient managementdecisions. ID Date Data Source [id number] 04/17/2019 10:45:[address] [facility] Name Value Range Interpretation Code Description Data [facility] rce(s) Supporting Document(s) RAPID STREP NEGATIVE NORMAL: NEGATIVE [facility] RAPID STREP REENTER NEGATIVE NORMAL: NEGATIVE [facility] { PROCEDURAL CONTROL VALID ){ KIT LOT # [id number] ){ KIT EXP DATE 02/24/20 )The Strep [...] basis for treatment. ID Date Data Source [id number] 04/17/2019 11:06:[address] [facility] Name Value Range Interpretation Code Description Data Sabrina rce(s) Supporting Document(s) Thyrotropin [Units/volume] in Serum or Plasma by Detec tion limit <= 0.05 mIU/L 2.65 uIU/mL 0.47 - 5.01 [facility] ID Date Data Source [id number] 04/17/2019 11:01:[address] [facility] Name Value Range Interpretation Code Description Data Sabrina rce(s) Supporting Document(s) TROPONIN T 0.01 NG/ML 0.00 - 0.10 [facility] TROPONIN T0.1 ng/ml Recommended as the c linical threshold value forTroponin T. ID Date Data Source [id number] 04/17/2019 11:01:00 AM EST [facility] Name Value Range Interpretation Code Description Data Sabrina [facility](s) Supporting Document(s) COMPREHENSIVE METABOLIC PANEL [facility] COMPREHENSIVE METABOLIC PANEL Sodium [Moles/volume] in Serum or Plasma 141 mEq/L 134 - 153 [facility] Potassium [Moles/volume] in Serum or Plasma 3.9 mEq/L 3.6 - 5.0 [facility] Chloride [Moles/volume] in Serum or Plasma 103 mEq/L 98 - 107 [facility] Carbon dioxide, total [Moles/volume] in Serum or Plasma 22 MEQ/L 22 - 30 [facility] Glucose [Mass/volume] in Serum or Plasma 124 MG/DL 65 - 110 H [facility] BUN 12 MG/DL 7 - 21 [facility] al Creatinine [Mass/volume] in Serum or Plasma 0.9 MG/DL 0.7 - 1.5 [facility] BUN/CREAT 13 8 - 27 [facility] Protein [Mass/volume] in Serum or Plasma 7.0 G/DL 6.3 - 8.2 [facility] Albumin [Mass/volume] in Serum or Plasma 4.3 G/DL 3.9 - 5.0 [facility] Globulin [Mass/volume] in Serum by calculation 2.7 GM/DL 2.4 - 3.2 [facility] A/G RATIO 1.6 0.8 - 2.0 [facility] Calcium [Mass/volume] in Serum or Plasma 9.6 MG/DL 8.4 - 10.2 [facility] Bilirubin.total [Mass/volume] in Serum or Plasma <0.7 MG/DL 0.2 - 1.3 [facility] Alkaline phosphatase [Enzymatic activity/volume] in Serum or Plasma 73 U/L 38 - 126 [facility] Aspartate aminotransferase [Enzymatic activity/volume] in Serum or Plasma 15 U/L 5 - 40 [facility] Alanine aminotransferase [Enzymatic activity/volume] in Seru m or Plasma 19 U/L 7 - 56 [facility] Anion gap 3 in Serum or Plasma 16.0 mmol/L 8.0 - 16.0 [facility] AGE 29 yrs [facility] NON-AA GFR >60 mL/min [facility] AFR AMER GFR >60 mL/min [facility] Male GFR In terprentation 20-49 [...] >32 mL/min Normal ID Date Data Source [id number] 04/17/2019 10:56:[address] [facility] Name Value Range Interpretation Code Description Data Sabrina rce(s) Supporting Document(s) Lipase [Enzymatic activity/volume] in Serum or Plasma 28 U/L 13 - 60 [facility] ID Date Data Source [id number] 04/17/2019 10:46:[address] [facility] Name Value Range Interpretation Code Description Data Sabrina rce(s) Supporting Document(s) Fibrin D-dimer FEU [Mass/volume] in Platelet poor plasma 0.36 ug /mL 0.27 - 0.50 [facility] ID Date Data Source [id number] 04/17/2019 10:46:[address] [facility] Name Value Range Interpretation Code Description Data Sabrina rce(s) Supporting Document(s) Prothrombin time (PT) 12.2 SECONDS 11.0 - 15.5 [facility] INR in Platelet poor plasma by Coagulation assay 0.90 0.93 - 1. 23 L [facility] aPTT in Blood by Coagulation assay 27.9 SECONDS 24.8 - 36.7 [facility] \\BLDo\\INR INTERPRETATION\\BLDx\\ Therapeutic range for Coumadin and related oral anticoagulants. - International Normalized Ratio (INR): 2.0 - 3.0 for Venous Thrombosis, Pulmonary Embolus, Tissue heart valves, Acute ID Atrial Fibrillation, Valvular heart disease and recurrent [...] and other interferences. ID Date Data Source [id number] 04/17/2019 10:44:00 AM EST [facility] Name Value Range Interpretation Code Description Data Sabrina rce(s) Supporting Document(s) CBC W/AUTOMATED DIFF [facility] COMPLETE BLOOD COUNT Leukocytes [#/volume] in Blood by Automated count 11.6 10^3/uL 4.2 - 11.0 H [facility] Erythrocytes [#/volume] in Blood by Automated count 4.51 10^6/uL 4. 20 - 5.40 [facility] Hemoglobin [Mass/volume] in Blood 13.1 g/dL 12.0 - 16.0 [facility] Hematocrit [Volume Fraction] of Blood by Automated count 40.2 % 3 7.0 - 47.0 [facility] Erythrocyte mean corpuscular volume [Entitic volume] by Auto mated count 89.1 fL 81.0 - 101 [facility] Erythrocyte mean corpuscular hemoglobin [Entitic mass] by Automated count 29.0 pg 27.0 - 34.0 [facility] Erythrocyte mean corpuscular hemoglobin concentration [Mass/volume] by Automated count 32.6 g/dL 31.0 - 36.0 [facility] Erythrocyte distribution width [Ratio] by Automated count 13.5 % 11.5 - 14.5 [facility] Platelets [#/volume] in Blood by Automated count 221 10^3/uL 150 - 45 0 [facility] Platelet mean volume [Entitic volume] in Blood by Automated count 10.3 fL 7.4 - 10.4 [facility] Neutrophils/100 leukocytes in Blood by Automated count 63.5 % 37. 0 - 80.0 [facility] Lymphocytes/100 leukocytes in Blood by Manual count 27.1 % 25.0 - 40.0 [facility] Monocytes/100 leukocytes in Blood by Automated count 7.4 % 3.0 - 8.0 [facility] Eosinophils/100 leukocytes in Blood by Automated count 1.3 % 0.0 - 7.0 [facility] Basophils/100 leukocytes in Blood by Automated count 0.3 % 0.0 - 2.5 [facility] %IG 0.4 % 0.0 - 0.0 H [facility] %NRBC 0.0 % 0.0 - 0.0 [facility] al Neutrophils [#/volume] in Blood by Automated count 7.36 10^3/uL 2.00 - 6.90 H [facility] Lymphocytes [#/volume] in Blood by Automated count 3.15 10^3/uL 0.60 - 3.40 [facility] Monocytes [#/volume] in Blood by Automated count 0.86 10^3/uL 0.00 - 0.90 [facility] Eosinophils [#/volume] in Blood by Automated count 0.15 10^3/uL 0.00 - 0.70 [facility] Basophils [#/volume] in Blood by Automated count 0.04 10^3/uL 0.00 - 0.20 [facility] #IG 0.05 10^3/uL 0.00 - 0.10 [facility] #NRBC 0.00 10^3/uL 0.00 - 0.00 [facility] MANUAL DIFF NOT INDICATED [facility] RBC MORPH NOT INDICATED [facility] Procedure Social History Code Duration Value Status Description Data Source(s ) Smoking 09/07/2019 12:00:00 AM EDT Former Smoker completed Former Smoker eCW1 ([facility]) Smoking 09/07/2019 12:00:00 AM EDT Former Smoker completed Former Smoker eCW1 ([facility]) Vital Signs ID Date Data Source UNK [...] blood pressure 76 mm[Hg] 76 mm[Hg] eCW1 ([facility]) Systolic blood pressure 122 mm[Hg] 122 mm[Hg] e CW1 ([facility]) Body temperature 98.5 [degF] 98.5 [degF] eCW1 ( [facility]) Respiratory rate 20 /min 20 /min eCW1 ([facility]) Heart rate 134 /min 134 /min eCW1 ([facility] Body mass index (BMI) [Ratio] 44.72 kg/m2 44.72 kg/m2 eCW1 ([facility]) Body height [in_us] eCW1 ([place] [facility]) Body weight Measured 229.0 [lb_av] 229.0 [lb_av ] eCW1 ([facility]) Body mass index (BMI) [Ratio] 43.0 kg/m2 43.0 k g/m2 MEDENT ([facility]) Body weight 220.00 [lb_av] 220.00 [lb_av] MEDEN T ([facility]) Body height 60 [in_i] 60 [in_i] MEDENT ([facility]) 5'0" Body temperature 98.6 [degF] 98.6 [degF] MEDENT ([facility]) Body mass index (BMI) [Ratio] 38.8 kg/m2 [...] blood pressure 78 mm[Hg] 78 mm[Hg] eCW1 ([facility]) Systolic blood pressure 118 mm[Hg] 118 mm[Hg] e CW1 ([facility]) Body temperature 97.4 [degF] 97.4 [degF] eCW1 ( [facility]) Respiratory rate 18 /min 18 /min eCW1 ([facility]) Heart rate 118 /min 118 /min eCW1 ([facility]) Body mass index (BMI) [Ratio] 41.20 kg/m2 41.20 kg/m2 eCW1 ([facility]) Body height [in_us] eCW1 ([facility]) Body weight Measured 211.0 [lb_av] 211.0 [lb_av ] eCW1 ([facility]) Body mass index (BMI) [Ratio] 41.0 kg/m2 [...] blood pressure 84 mm[Hg] 84 mm[Hg] eCW1 ([facility]) Systolic blood pressure 124 mm[Hg] 124 mm[Hg] e CW1 ([facility]) Body temperature 97.3 [degF] 97.3 [degF] eCW1 ( [facility]) Respiratory rate 20 /min 20 /min eCW1 ([facility]) Heart rate 115 /min 115 /min eCW1 ([facility]) Body mass index (BMI) [Ratio] 40.07 kg/m2 40.07 kg/m2 eCW1 ([facility]) Body height [in_us] eCW1 ([facility]) Body weight Measured 205.2 [lb_av] 205.2 [lb_av ] eCW1 ([facility]) Patient Treatment Plan of Care Planned Activity Planned Date Details Description Data Source (s) Escitalopram 20 MG Oral Tablet 08/29/2019 12:00:00 AM EDT eCW1 ([facility]) Escitalopram 20 MG Oral Tablet 08/29/2019 12:00:00 AM EDT eCW1 ([facility]) Escitalopram 20 MG Oral Tablet 08/29/2019 12:00:00 AM EDT eCW1 ([facility]) Escitalopram 20 MG Oral Tablet 08/29/2019 12:00:00 AM EDT eCW1 ([facility]) Nicotine 7 MG/24HR 06/08/2019 12:00:00 AM EST eCW1 ([facility]) Ondansetron 8 MG Oral Tablet 04/21/2019 12:00:00 AM EST eCW1 ([facility])
[2020-06-13] MEDS ORDERED: AMOX875T PO (10:07)
[2020-06-13 10:15] VITALS: BP 148/76
== END 2020-06-13 10:28 | disposition home or self-care (01) ==
LOC: M ED 08:58
DX: J02.0 Streptococcal pharyngitis (principal); M54.9 Dorsalgia, unspecified; F17.200 Nicotine dependence, unspecified, uncomplicated; Z79.51 Long term (current) use of inhaled steroids; Z79.899 Other long term (current) drug therapy

== ENCOUNTER 2020-07-18 07:09 | Emergency (ER) | payer OTHER ==
[~2020-07-18] VITALS: Ht 152.4 cm; Wt 99.5 kg
[~2020-07-18 07:09] MED LIST changes: +AMOX875T PO
[2020-07-18 08:13] LABS: BASO # 0.1 10^3/uL (0.0-0.2); BASO % 0.6 % (0.0-1.0); EOS # 0.3 10^3/uL (0.0-0.5); EOS % 2.8 % (0.0-3.0); HEMATOCRIT 38.3 % (36.0-47.0); HEMOGLOBIN 13.2 g/dl (12.0-15.5); LYMPH # 2.7 10^3/uL (1.5-5.0); LYMPH % 26.1 % (24.0-44.0); MEAN CORPUSCULAR HEMOGLOBIN 31.9 pg (27.0-33.0); MEAN CORPUSCULAR HGB CONC 34.5 g/dl (32.0-36.5); MEAN CORPUSCULAR VOLUME 92.5 fl (80.0-96.0); MONO # 0.7 10^3/uL (0.0-0.8); NEUTROPHILS # 6.4 10^3/uL (1.5-8.5); NEUTROPHILS % 62.9 % (36.0-66.0); PLATELET COUNT, AUTOMATED 223 10^3/uL (150-450); RED BLOOD COUNT 4.14 10^6/uL (4.00-5.40); WHITE BLOOD COUNT 10.2 10^3/uL (4.0-10.0)
[2020-07-18 08:31] LABS: MONO REFLEX EBV COMP NEGATIVE (NEGATIVE)
[2020-07-18 08:32] LABS: ERYTHROCYTE SEDIMENTATION RATE 24 mm/hr (0-20)
[2020-07-18] MEDS ORDERED: AUGM875T28 PO (08:54)
[2020-07-18] MEDS ORDERED: PRED20TA PO (08:54)
[2020-07-18 09:01] VITALS: BP 140/87
[2020-07-19 15:10] LABS: EBV VIRAL CAPSID AG IgM <36.0 U/mL (0.0-35.9)
== END 2020-07-18 09:03 | disposition home or self-care (01) ==
LOC: M ED 07:09
DX: J36 Peritonsillar abscess (principal); F41.9 Anxiety disorder, unspecified; F32.9 Major depressive disorder, single episode, unspecified; J45.909 Unspecified asthma, uncomplicated; G43.909 Migraine, unspecified, not intractable, without status migrainosus; K21.9 Gastro-esophageal reflux disease without esophagitis; K44.9 Diaphragmatic hernia without obstruction or gangrene; M54.9 Dorsalgia, unspecified; F17.210 Nicotine dependence, cigarettes, uncomplicated; Z79.899 Other long term (current) drug therapy; Z79.51 Long term (current) use of inhaled steroids

== ENCOUNTER 2020-08-02 19:38 | Emergency (ER) | payer OTHER ==
[~2020-08-02] VITALS: Ht 152.4 cm; Wt 102.3 kg
[2020-08-02 19:38] VITALS: BP 150/77
[2020-08-02] MEDS ORDERED: MIRE1IUD IU (19:54)
[2020-08-02] MEDS ORDERED: NAPROXEN 250 MG TAB PO ONE (20:35)
[2020-08-02] MEDS ORDERED: CYCLOBENZAPRINE 10MG TABLET PO ONE (20:35)
[2020-08-02] MEDS ORDERED: ROBA750T4 PO (20:37)
[2020-08-02] MEDS ORDERED: NAPR-885 PO (20:37)
[2020-08-02] MEDS ORDERED: methocarbamoL 750 MG TAB PO ONE (20:40)
== END 2020-08-02 21:03 | disposition home or self-care (01) ==
LOC: M ED 19:38
DX: S39.012A Strain of muscle, fascia and tendon of lower back, initial encounter (principal); W18.30XA Fall on same level, unspecified, initial encounter; W20.8XXA Other cause of strike by thrown, projected or falling object, initial encounter; Y92.128 Other place in nursing home as the place of occurrence of the external cause; Y93.F9 Activity, other caregiving; Y99.0 Civilian activity done for income or pay; G43.909 Migraine, unspecified, not intractable, without status migrainosus; J45.909 Unspecified asthma, uncomplicated; K21.9 Gastro-esophageal reflux disease without esophagitis; K44.9 Diaphragmatic hernia without obstruction or gangrene; M54.9 Dorsalgia, unspecified; F41.9 Anxiety disorder, unspecified; F32.9 Major depressive disorder, single episode, unspecified; F17.200 Nicotine dependence, unspecified, uncomplicated; Z79.899 Other long term (current) drug therapy; Z79.51 Long term (current) use of inhaled steroids; Z97.5 Presence of (intrauterine) contraceptive device

== ENCOUNTER 2020-08-10 10:11 | Emergency (ER) | payer OTHER ==
[~2020-08-10] VITALS: Ht 152.4 cm; Wt 102.5 kg
[~2020-08-10 10:11] MED LIST changes: +MIRE1IUD IU; +NAPR-885 PO
[2020-08-10 12:35] LABS: HCG, SERUM QUALITATIVE NEGATIVE (NEGATIVE); RED BLOOD COUNT 4.52 10^6/uL (4.00-5.40); WHITE BLOOD COUNT 10.8 10^3/uL (4.0-10.0)
[2020-08-10 12:36] LABS: BASO # 0.1 10^3/uL (0.0-0.2); BASO % 0.5 % (0.0-1.0); EOS # 0.3 10^3/uL (0.0-0.5); EOS % 2.3 % (0.0-3.0); HEMATOCRIT 41.8 % (36.0-47.0); LYMPH # 2.5 10^3/uL (1.5-5.0); LYMPH % 23.4 % (24.0-44.0); MEAN CORPUSCULAR HGB CONC 33.5 g/dl (32.0-36.5); MEAN CORPUSCULAR VOLUME 92.5 fl (80.0-96.0); MONO # 0.7 10^3/uL (0.0-0.8); MONO % 6.2 % (2.0-8.0); NEUTROPHILS # 7.2 10^3/uL (1.5-8.5); NEUTROPHILS % 66.9 % (36.0-66.0); PLATELET COUNT, AUTOMATED 222 10^3/uL (150-450)
[2020-08-10 12:45] LABS: GLUCOSE, FASTING 132 MG/DL (70-100)
[2020-08-10 12:46] LABS: BLOOD UREA NITROGEN 12 MG/DL (7-18); CALCIUM LEVEL 9.5 MG/DL (8.5-10.1); CARBON DIOXIDE LEVEL 26 mmol/L (20-29); CHLORIDE LEVEL 104 MEQ/L (98-107); CREATININE FOR GFR 0.83 MG/DL (0.55-1.30); GLOMERULAR FILTRATION RATE > 60.0 (>60); POTASSIUM SERUM 4.3 MEQ/L (3.5-5.1); SODIUM LEVEL 136 MEQ/L (136-145)
--- NOTE | 2020-08-10 14:23 | REP ---
INDICATION: non , bleeding. COMPARISON: Comparison CT study abdomen pelvis October 01, 2019.. TECHNIQUE: Transabdominal and transvaginal scanning were performed. FINDINGS: Uterine dimensions are normal at 8.4 x 3.8 x 5.3 cm. Endometrial echo is 0.4 cm thick and centrally placed. No free fluid is seen in the cul-de-sac. Visualized bladder rooney are smooth. An IUD is noted in the uterine endometrium in what appears to be good position. No focal uterine lesion is seen. No free fluid is noted in the cul-de-sac. The right ovary has dimensions of 2.8 x 1.4 x 2.6 cm. It's Doppler flow is normal with a resistive index of 0.49. The left ovary dimensions are normal as well at 2.2 x 2.1 x 2.2 cm. It's Doppler flow was normal with resistive index of 0.41. IMPRESSION: Normal pelvic sonography. IUD seen in the uterine endometrium. <Electronically signed by Jarett London > 08/10/20 [id number]
[2020-08-10 15:03] LABS: CHLAMYDIA DNA AMPLIFICATION NEGATIVE (NEGATIVE); GC DNA AMPLIFICATION NEGATIVE (NEGATIVE)
[2020-08-10 16:00] VITALS: BP 144/95
== END 2020-08-10 16:35 | disposition home or self-care (01) ==
LOC: M ED 10:11
DX: N93.9 Abnormal uterine and vaginal bleeding, unspecified (principal); R10.2 Pelvic and perineal pain; Z97.5 Presence of (intrauterine) contraceptive device; J45.909 Unspecified asthma, uncomplicated; F41.9 Anxiety disorder, unspecified; F32.9 Major depressive disorder, single episode, unspecified; K44.9 Diaphragmatic hernia without obstruction or gangrene; F17.200 Nicotine dependence, unspecified, uncomplicated; Z79.899 Other long term (current) drug therapy; Z79.1 Long term (current) use of non-steroidal anti-inflammatories (NSAID); Z79.51 Long term (current) use of inhaled steroids

== ENCOUNTER → 2020-09-09 | Outpatient (CLI) | payer OTHER ==
[~2020-09-09] MED LIST changes: -CETI-24; +CETI-24 PO
== END ==
LOC: M LABSMTC 10:46
PROVIDERS: ATTEND Anesthesiology
DX: Z01.818 Encounter for other preprocedural examination (principal); Z11.52 Encounter for screening for COVID-19

== ENCOUNTER 2020-09-12 08:59 | Day surgery (SDC) | payer OTHER ==
[~2020-09-12] VITALS: Ht 152.4 cm; Wt 101.1 kg
[~2020-09-12 08:59] MED LIST changes: +LR 1,000 ML IV ONE; +dexameTHASONE 4 MG/ML 1ML VIAL (J1100 PER 1MG) IV ONE
[2020-09-12] MEDS ORDERED: ACETAMINOPHEN 1000MG 100ML IV BTL (OFIRMEV) (J0131 PER 10MG) As Ordered ONE (10:16)
[2020-09-12] MEDS ORDERED: SUGAMMADEX SODIUM 500 MG/5 ML VIAL (BRIDION) As Ordered ONE (10:16)
[2020-09-12] MEDS ORDERED: propofoL 200 MG/20 ML VIAL As Ordered ONE ×2 (10:16→10:17)
[2020-09-12] MEDS ORDERED: dexameTHASONE 4 MG/ML 1ML VIAL (J1100 PER 1MG) As Ordered ONE ×2 (10:16→11:17)
[2020-09-12] MEDS ORDERED: MIDAZOLAM INJ 2MG/2ML VIAL (J2250 PER 1MG) As Ordered ONE (10:16)
[2020-09-12] MEDS ORDERED: LIDOCAINE 2% 100MG/5ML SDV (FOR ANES.) As Ordered ONE (10:16)
[2020-09-12] MEDS ORDERED: ONDANSETRON 4MG/2ML VIAL As Ordered ONE (10:16)
[2020-09-12] MEDS ORDERED: fentaNYL 100 MCG/2 ML INJECTION (J3010) As Ordered ONE ×2 (10:17→11:31)
[2020-09-12] MEDS ORDERED: ROCURONIUM BROMIDE 50 MG/5 ML VIAL As Ordered ONE (10:20)
[2020-09-12] MEDS ORDERED: LIDOCAINE 5% OINT 30GM TUBE As Ordered ONE (11:01)
[2020-09-12] MEDS ORDERED: LR 1,000 ML IV SCH ×2 (12:00→12:05)
[2020-09-12] MEDS ORDERED: ONDANSETRON 4MG/2ML VIAL IV PRN (12:05)
[2020-09-12] MEDS ORDERED: oxyCODONE 5MG TAB PO PRN (12:05)
[2020-09-12] MEDS ORDERED: fentaNYL 100 MCG/2 ML INJECTION (J3010) IV PRN (12:05)
[2020-09-12 13:30] VITALS: BP 129/78
--- NOTE | 2020-09-13 08:31 | RO ---
OPERATIVE NOTE DATE OF OPERATION: 09/12/2020 PREOPERATIVE DIAGNOSIS: Chronic tonsillitis. POSTOPERATIVE DIAGNOSIS: Chronic tonsillitis. PROCEDURE PERFORMED: Tonsillectomy. SURGEON: Stanley May MD. LAY OUT DRAFTER: None. ANESTHESIA: General. CLINICAL PREAMBLE: This 30-year-old woman presented to the office with a history of chronic tonsillitis. Physical examination revealed cryptic tonsils. Management options including tonsillectomy have been discussed. The patient understood and consented to the procedure. OR NARRATION: Patient was identified in preoperative holding and brought to the operating room in stable condition. In the supine position on the operating room table, patient received general anesthesia followed by orotracheal intubation without incident. Patient was prepped and draped in the usual sterile fashion for the procedure. The Jose Luis-Venkata mouth gag was inserted and suspended. The right tonsil was medialized using curved Allis forceps. A mucosal incision was made over the superior pole of the right tonsil using the Coblator wand set at 7 for Coblation. The tonsillar capsule was identified, and dissection was carried out along this plane to excise the right tonsil. The left tonsil was then similarly dissected out. At the end of the procedure, both tonsil beds were free of bleeding. Estimated blood loss was less than 10 mL. No complication was encountered. Sponge and instrument counts were correct at the end of the procedure. General anesthesia was reversed, and the patient was extubated and brought to the recovery room in stable condition.
== END 2020-09-12 13:35 | disposition home or self-care (01) ==
LOC: M SDC 08:59
PROVIDERS: ATTEND Otolaryngology
DX: J35.01 Chronic tonsillitis (principal); K21.9 Gastro-esophageal reflux disease without esophagitis; F32.9 Major depressive disorder, single episode, unspecified; K44.9 Diaphragmatic hernia without obstruction or gangrene; F41.9 Anxiety disorder, unspecified; J45.909 Unspecified asthma, uncomplicated; R06.83 Snoring; F17.210 Nicotine dependence, cigarettes, uncomplicated; Z79.899 Other long term (current) drug therapy; Z79.51 Long term (current) use of inhaled steroids
CPT/HCPCS: 42826; 81025; 88302; J0131; J1100; J2250; J2405; J3010

== ENCOUNTER 2021-01-20 08:16 | Emergency (ER) | payer OTHER ==
[~2021-01-20] VITALS: Ht 152.4 cm; Wt 92.7 kg
[~2021-01-20 08:16] MED LIST changes: -DOXY100C37 PO; +DOXY1CAP62 PO; -LR 1,000 ML IV ONE; +OMEP40CA4 PO; -OMEP40CA97 PO; -dexameTHASONE 4 MG/ML 1ML VIAL (J1100 PER 1MG) IV ONE
[2021-01-20 09:30] LABS: HEMATOCRIT 41.1 % (36.0-47.0); HEMOGLOBIN 14.3 g/dl (12.0-15.5); MEAN CORPUSCULAR HEMOGLOBIN 30.9 pg (27.0-33.0); MEAN CORPUSCULAR HGB CONC 34.8 g/dl (32.0-36.5); MEAN CORPUSCULAR VOLUME 88.8 fl (80.0-96.0); PLATELET COUNT, AUTOMATED 207 10^3/uL (150-450); RED BLOOD COUNT 4.63 10^6/uL (4.00-5.40); WHITE BLOOD COUNT 8.1 10^3/uL (4.0-10.0)
[2021-01-20 09:55] LABS: ATYPICAL LYMPH 3 % (0-5); BASOPHILS 1 % (0-1); EOSINOPHILS 2 % (0-3); LYMPHOCYTES 28 % (16-44); MONOCYTES 6 % (0-5); NEUTROPHILS 58 % (28-66)
[2021-01-20 09:56] LABS: PLATELET ESTIMATE NORMAL (NORMAL)
[2021-01-20 09:58] LABS: ALBUMIN 3.6 GM/DL (3.2-5.2); BILIRUBIN,DIRECT 0.2 MG/DL (0.0-0.2); BILIRUBIN,TOTAL 0.8 MG/DL (0.2-1.0); TOTAL PROTEIN 7.3 GM/DL (6.4-8.2)
[2021-01-20] MEDS ORDERED: NS 1,000 ML IV ONE (10:00)
[2021-01-20] MEDS ORDERED: ONDANSETRON 4MG/2ML VIAL IV ONE (10:00)
--- NOTE | 2021-01-20 10:34 | REP ---
INDICATION: upper abd pain, elev rachele enzymes, n/v COMPARISON: None. TECHNIQUE: Real time everett scale ultrasound examination using curved array transducer. FINDINGS: Liver is hyperechoic suggesting fatty infiltration without focal hepatic lesion identified. Pancreas is incompletely evaluated due to interposed bowel gas. The gallbladder is not visualized and likely surgically absent. No biliary ductal dilatation is appreciated and the common bile duct measures 5.1 mm diameter. Right kidney is normal in reniform shape without hydronephrosis and measures 10.0 x 5.7 x 4.0 cm. No ascites in the visualized right upper quadrant. IMPRESSION: 1. Hepatosteatosis. <Electronically signed by Rahul Whipple > 01/20/21 [id number]
[2021-01-20 11:13] LABS: RSV AMPLIFICATION NEGATIVE (NEGATIVE)
[2021-01-20 11:45] VITALS: BP 130/74
== END 2021-01-20 12:06 | disposition home or self-care (01) ==
LOC: M ED 08:16
DX: R11.2 Nausea with vomiting, unspecified (principal); R19.7 Diarrhea, unspecified; K21.9 Gastro-esophageal reflux disease without esophagitis; J30.2 Other seasonal allergic rhinitis; Z97.5 Presence of (intrauterine) contraceptive device; Z87.891 Personal history of nicotine dependence
CPT/HCPCS: 76705; 80076; 83690; 84702; 85025; 87631; 96361; 96374; 99284; J2405

== ENCOUNTER → 2021-05-27 | Outpatient (CLI) | payer OTHER ==
[~2021-05-27] MED LIST changes: +BUTA-198 PO; +BUTACAP78 PO; +DOXY-443 PO; -DOXY1CAP62 PO
== END ==
LOC: M LAB 07:31
PROVIDERS: ATTEND Physician Assistant
DX: F33.1 Major depressive disorder, recurrent, moderate (principal)

== ENCOUNTER → 2021-07-17 | Outpatient (CLI) | payer OTHER ==
[2021-07-17 08:00] LABS: BASO # 0.1 10^3/uL (0.0-0.2); BASO % 0.6 % (0.0-1.0); EOS # 0.3 10^3/uL (0.0-0.5); EOS % 2.4 % (0.0-3.0); LYMPH # 3.4 10^3/uL (1.5-5.0); LYMPH % 31.3 % (24.0-44.0); MEAN CORPUSCULAR HEMOGLOBIN 30.8 pg (27.0-33.0); MEAN CORPUSCULAR HGB CONC 34.1 g/dl (32.0-36.5); MEAN CORPUSCULAR VOLUME 90.1 fl (80.0-96.0); MONO # 0.8 10^3/uL (0.0-0.8); MONO % 7.3 % (2.0-8.0); NEUTROPHILS # 6.2 10^3/uL (1.5-8.5); NEUTROPHILS % 58.1 % (36.0-66.0); PLATELET COUNT, AUTOMATED 223 10^3/uL (150-450); RED BLOOD COUNT 4.55 10^6/uL (4.00-5.40); WHITE BLOOD COUNT 10.7 10^3/uL (4.0-10.0)
[2021-07-17 08:05] LABS: APPEARANCE, URINE CLOUDY (CLEAR); BACTERIA, URINE AUTO 1+ (NEGATIVE); BILIRUBIN, URINE AUTO NEGATIVE (NEGATIVE); BLOOD, URINE BLOOD NEGATIVE (NEGATIVE); COLOR, URINE AMBER (YELLOW); GLUCOSE, URINE (UA) AUTO NEGATIVE (NEGATIVE); KETONE, URINE AUTO NEGATIVE (NEGATIVE); LEUKOCYTE ESTERASE, URINE AUTO TRACE (NEGATIVE); MUCUS, URINE SMALL (NEGATIVE); NITRITE, URINE AUTO NEGATIVE (NEGATIVE); PROTEIN, URINE AUTO 1+ mg/dL (NEGATIVE); RBC, URINE AUTO 5 /HPF (0-3); SPECIFIC GRAVITY URINE AUTO 1.025 (1.002-1.035); SQUAMOUS EPITHELIAL CELL UR AU 29 /HPF (0-6); UROBILINOGEN, URINE AUTO 0.2 mg/dL (0.0-2.0); WBC, URINE AUTO 13 /HPF (0-3)
[2021-07-17 08:32] LABS: HEMOGLOBIN A1c 6.7 %
[2021-07-17 08:35] LABS: ALBUMIN 3.9 GM/DL (3.2-5.2); ALT/SGPT 117 U/L (12-78); BILIRUBIN,TOTAL 0.8 MG/DL (0.2-1.0); BLOOD UREA NITROGEN 11 MG/DL (7-18); CALCIUM LEVEL 9.2 MG/DL (8.5-10.1); CARBON DIOXIDE LEVEL 29 MEQ/L (21-32); CHLORIDE LEVEL 103 MEQ/L (98-107); CREATININE FOR GFR 0.92 MG/DL (0.55-1.30); GLOMERULAR FILTRATION RATE > 60.0 (>60); GLUCOSE, FASTING 147 MG/DL (70-100); POTASSIUM SERUM 3.7 MEQ/L (3.5-5.1); SODIUM LEVEL 137 MEQ/L (136-145); TOTAL PROTEIN 7.3 GM/DL (6.4-8.2)
== END ==
LOC: M LAB 07:26
PROVIDERS: ATTEND Physician Assistant
DX: E11.65 Type 2 diabetes mellitus with hyperglycemia (principal)

== ENCOUNTER → 2021-09-01 | Outpatient (CLI) | payer OTHER ==
[~2021-09-01] MED LIST changes: +CHOL239. PO; -CHOL4POW PO
[2021-09-01 17:17] LABS: HEPATITIS B SURFACE ANTIBODY POSITIVE (POSITIVE)
[2021-09-03 06:08] LABS: MUMPS VIRUS IgG ANTIBODY <9.0 AU/mL (Immune >10.9); RUBEOLA IgG ANTIBODY >300.0 AU/mL (Immune >16.4)
== END ==
LOC: M LAB 15:56
PROVIDERS: ATTEND Physician Assistant
DX: Z02.1 Encounter for pre-employment examination (principal)

== ENCOUNTER 2021-10-01 09:59 | Emergency (ER) | payer OTHER ==
[~2021-10-01] VITALS: Ht 152.4 cm; Wt 100.2 kg
[2021-10-01] MEDS ORDERED: METF-838 (10:09)
[2021-10-01] MEDS ORDERED: HYDR50TA70 (10:10)
[2021-10-01] MEDS ORDERED: KETOROLAC 30 MG/ML 1ML VIAL IV ONE (10:35)
[2021-10-01] MEDS ORDERED: ONDANSETRON 4MG/2ML VIAL IV ONE (10:35)
[2021-10-01] MEDS ORDERED: NS 1,000 ML IV ONE (10:35)
[2021-10-01 11:08] LABS: BASO # 0.1 10^3/uL (0.0-0.2); BASO % 0.7 % (0.0-1.0); EOS # 0.2 10^3/uL (0.0-0.5); EOS % 1.8 % (0.0-3.0); HEMATOCRIT 39.6 % (36.0-47.0); HEMOGLOBIN 13.7 g/dl (12.0-15.5); LYMPH # 2.5 10^3/uL (1.5-5.0); MEAN CORPUSCULAR HEMOGLOBIN 31.1 pg (27.0-33.0); MEAN CORPUSCULAR HGB CONC 34.6 g/dl (32.0-36.5); MONO # 0.6 10^3/uL (0.0-0.8); MONO % 6.3 % (2.0-8.0); NEUTROPHILS # 5.4 10^3/uL (1.5-8.5); NEUTROPHILS % 61.7 % (36.0-66.0); PLATELET COUNT, AUTOMATED 204 10^3/uL (150-450); WHITE BLOOD COUNT 8.7 10^3/uL (4.0-10.0)
[2021-10-01 11:32] LABS: ERYTHROCYTE SEDIMENTATION RATE 23 mm/hr (0-20)
[2021-10-01 11:41] LABS: ALBUMIN 3.8 GM/DL (3.2-5.2); ALT/SGPT 171 U/L (12-78); BILIRUBIN,DIRECT 0.3 MG/DL (0.0-0.2); BILIRUBIN,TOTAL 1.3 MG/DL (0.2-1.0); BLOOD UREA NITROGEN 13 MG/DL (7-18); C REACTIVE PROTEIN QUANTITATIV 1.13 MG/DL (0.00-0.30); CALCIUM LEVEL 9.6 MG/DL (8.5-10.1); CARBON DIOXIDE LEVEL 27 MEQ/L (21-32); CHLORIDE LEVEL 105 MEQ/L (98-107); CREATININE FOR GFR 0.94 MG/DL (0.55-1.30); FREE T4 0.94 NG/DL (0.76-1.46); GLOMERULAR FILTRATION RATE > 60.0 (>60); GLUCOSE, FASTING 165 MG/DL (70-100); MAGNESIUM LEVEL 1.9 MG/DL (1.8-2.4); POTASSIUM SERUM 4.1 MEQ/L (3.5-5.1); SODIUM LEVEL 139 MEQ/L (136-145); TOTAL PROTEIN 7.5 GM/DL (6.4-8.2)
[2021-10-01 12:50] LABS: MONO REFLEX EBV COMP NEGATIVE (NEGATIVE)
[2021-10-01 13:48] LABS: RSV AMPLIFICATION NEGATIVE (NEGATIVE)
[2021-10-01] MEDS ORDERED: ONDA4TAB6 PO (15:36)
[2021-10-01] MEDS ORDERED: IMIT50TA PO (15:36)
[2021-10-01 15:57] VITALS: BP 140/90
[2021-10-02 14:12] LABS: EBV AB TO NUCLEAR ANTIGEN >600.0 U/mL (0.0-17.9); EBV VIRAL CAPSID AG IgM <36.0 U/mL (0.0-35.9)
== END 2021-10-01 16:02 | disposition home or self-care (01) ==
LOC: M ED 09:59
DX: G43.909 Migraine, unspecified, not intractable, without status migrainosus (principal); R79.89 Other specified abnormal findings of blood chemistry; R93.0 Abnormal findings on diagnostic imaging of skull and head, not elsewhere classified; J45.909 Unspecified asthma, uncomplicated; K21.9 Gastro-esophageal reflux disease without esophagitis; F41.9 Anxiety disorder, unspecified; F32.A Depression, unspecified; Z87.891 Personal history of nicotine dependence; Z79.899 Other long term (current) drug therapy; Z79.51 Long term (current) use of inhaled steroids; Z79.84 Long term (current) use of oral hypoglycemic drugs
CPT/HCPCS: 36415; 70450; 70551; 80048; 80076; 83735; 84439; 84443; 84702; 85025; 85652; 86140; 86308; 86664; 86665; 87631; 96361; 96374; 96375; 99284; J1885; J2405

== ENCOUNTER → 2021-10-29 | Outpatient (REF) | payer OTHER ==
[~2021-10-29] MED LIST changes: +HYDR50TA70; +IMIT50TA PO; +METF-838
== END ==
LOC: M LAB REF 12:50
PROVIDERS: ATTEND Physician Assistant
DX: J02.9 Acute pharyngitis, unspecified (principal)

== ENCOUNTER → 2021-11-26 | Outpatient (CLI) | payer OTHER ==
[2021-11-26 08:30] LABS: BASO # 0.1 10^3/uL (0.0-0.2); BASO % 0.8 % (0.0-1.0); EOS # 0.3 10^3/uL (0.0-0.5); EOS % 3.1 % (0.0-3.0); HEMATOCRIT 39.2 % (36.0-47.0); HEMOGLOBIN 13.6 g/dl (12.0-15.5); LYMPH # 2.8 10^3/uL (1.5-5.0); LYMPH % 35.6 % (24.0-44.0); MEAN CORPUSCULAR HEMOGLOBIN 31.1 pg (27.0-33.0); MEAN CORPUSCULAR HGB CONC 34.7 g/dl (32.0-36.5); MEAN CORPUSCULAR VOLUME 89.7 fl (80.0-96.0); MONO # 0.6 10^3/uL (0.0-0.8); MONO % 6.9 % (2.0-8.0); NEUTROPHILS # 4.2 10^3/uL (1.5-8.5); NEUTROPHILS % 53.2 % (36.0-66.0); PLATELET COUNT, AUTOMATED 232 10^3/uL (150-450); RED BLOOD COUNT 4.37 10^6/uL (4.00-5.40)
[2021-11-26 08:37] LABS: HEMOGLOBIN A1c 6.8 %
[2021-11-26 08:55] LABS: ALBUMIN 3.8 GM/DL (3.2-5.2); ALT/SGPT 168 U/L (12-78); BILIRUBIN,TOTAL 1.1 MG/DL (0.2-1.0); BLOOD UREA NITROGEN 10 MG/DL (7-18); CALCIUM LEVEL 8.7 MG/DL (8.5-10.1); CARBON DIOXIDE LEVEL 25 MEQ/L (21-32); CHLORIDE LEVEL 104 MEQ/L (98-107); CREATININE FOR GFR 0.96 MG/DL (0.55-1.30); GLOMERULAR FILTRATION RATE > 60.0 (>60); GLUCOSE, FASTING 188 MG/DL (70-100); POTASSIUM SERUM 4.3 MEQ/L (3.5-5.1); SODIUM LEVEL 137 MEQ/L (136-145); TOTAL PROTEIN 7.3 GM/DL (6.4-8.2)
== END ==
LOC: M LAB 07:46
PROVIDERS: ATTEND Physician Assistant
DX: E11.9 Type 2 diabetes mellitus without complications (principal)

== ENCOUNTER → 2021-12-01 | Outpatient (REF) | payer OTHER ==
[2021-12-01 16:20] LABS: BASO # 0.1 10^3/uL (0.0-0.2); BASO % 0.7 % (0.0-1.0); EOS # 0.2 10^3/uL (0.0-0.5); EOS % 2.1 % (0.0-3.0); HEMATOCRIT 42.1 % (36.0-47.0); HEMOGLOBIN 14.4 g/dl (12.0-15.5); LYMPH # 3.6 10^3/uL (1.5-5.0); MEAN CORPUSCULAR HEMOGLOBIN 31.2 pg (27.0-33.0); MEAN CORPUSCULAR HGB CONC 34.2 g/dl (32.0-36.5); MEAN CORPUSCULAR VOLUME 91.3 fl (80.0-96.0); MONO # 0.7 10^3/uL (0.0-0.8); MONO % 6.5 % (2.0-8.0); NEUTROPHILS % 56.3 % (36.0-66.0); PLATELET COUNT, AUTOMATED 286 10^3/uL (150-450); RED BLOOD COUNT 4.61 10^6/uL (4.00-5.40); WHITE BLOOD COUNT 10.7 10^3/uL (4.0-10.0)
[2021-12-01 17:35] LABS: ERYTHROCYTE SEDIMENTATION RATE 21 mm/hr (0-20)
[2021-12-01 17:39] LABS: MONO REFLEX EBV COMP NEGATIVE (NEGATIVE)
[2021-12-02 02:15] LABS: ALBUMIN 4.2 GM/DL (3.2-5.2); ALT/SGPT 306 U/L (12-78); BILIRUBIN,TOTAL 1.2 MG/DL (0.2-1.0); BLOOD UREA NITROGEN 9 MG/DL (7-18); C REACTIVE PROTEIN QUANTITATIV 0.73 MG/DL (0.00-0.30); CALCIUM LEVEL 9.9 MG/DL (8.5-10.1); CARBON DIOXIDE LEVEL 28 MEQ/L (21-32); CHLORIDE LEVEL 100 MEQ/L (98-107); CREATININE FOR GFR 1.04 MG/DL (0.55-1.30); GLOMERULAR FILTRATION RATE > 60.0 (>60); GLUCOSE, FASTING 126 MG/DL (70-100); POTASSIUM SERUM 4.3 MEQ/L (3.5-5.1); SODIUM LEVEL 135 MEQ/L (136-145); TOTAL PROTEIN 7.9 GM/DL (6.4-8.2)
== END ==
LOC: M SFHCADAM 13:46
PROVIDERS: ATTEND Physician Assistant
DX: R74.8 Abnormal levels of other serum enzymes (principal)

== ENCOUNTER → 2021-12-10 | Outpatient (CLI) | payer OTHER ==
[2021-12-10 08:23] LABS: FREE T4 0.84 NG/DL (0.76-1.46); IRON (FE) 82 UG/DL (50-170); PERCENT SATURATION 23.2 % (13.2-45.0); TOTAL IRON BINDING CAPACITY 353 UG/DL (250-450)
[2021-12-10 10:00] LABS: HEPATITIS B SURFACE ANTIBODY POSITIVE (POSITIVE)
[2021-12-10 10:09] LABS: HEPATITIS B SURFACE ANTIGEN NEGATIVE (NEGATIVE)
[2021-12-10 10:37] LABS: HEPATITIS B CORE ANTIBODY IGM NEGATIVE (NEGATIVE)
== END ==
LOC: M LAB 07:05
PROVIDERS: ATTEND Physician Assistant
DX: R74.8 Abnormal levels of other serum enzymes (principal)

== ENCOUNTER → 2021-12-31 | Outpatient (CLI) | payer OTHER | LOC: M RAD 07:33 | PROVIDERS: ATTEND Physician Assistant | DX: R74.8 Abnormal levels of other serum enzymes (principal) ==

== ENCOUNTER → 2022-01-09 | Outpatient (REF) | payer OTHER ==
[2022-01-09 15:24] LABS: BILIRUBIN,DIRECT 0.3 MG/DL (0.0-0.2); BILIRUBIN,TOTAL 1.4 MG/DL (0.2-1.0); TOTAL PROTEIN 7.7 GM/DL (6.4-8.2)
== END ==
LOC: M SFHCADAM 07:44
PROVIDERS: ATTEND Physician Assistant
DX: R74.8 Abnormal levels of other serum enzymes (principal)

== ENCOUNTER 2022-02-16 10:52 | Emergency (ER) | payer OTHER ==
[~2022-02-16] VITALS: Ht 152.4 cm; Wt 99.0 kg
[2022-02-16 10:53] VITALS: BP 150/90
== END 2022-02-16 15:27 | disposition left against medical advice (07) ==
LOC: M ED 10:52
DX: Z53.21 Procedure and treatment not carried out due to patient leaving prior to being seen by health care provider (principal)

== ENCOUNTER → 2022-02-18 | Outpatient (CLI) | payer OTHER | LOC: M WHC 08:15 | PROVIDERS: ATTEND Physician Assistant | DX: K76.0 Fatty (change of) liver, not elsewhere classified (principal) ==

== ENCOUNTER → 2022-03-06 | Outpatient (CLI) | payer OTHER ==
[2022-03-06 10:42] LABS: HEMATOCRIT 35.5 % (36.0-47.0); HEMOGLOBIN 12.1 g/dl (12.0-15.5); MEAN CORPUSCULAR HEMOGLOBIN 31.1 pg (27.0-33.0); MEAN CORPUSCULAR HGB CONC 34.1 g/dl (32.0-36.5); MEAN CORPUSCULAR VOLUME 91.3 fl (80.0-96.0); PLATELET COUNT, AUTOMATED 200 10^3/uL (150-450); RED BLOOD COUNT 3.89 10^6/uL (4.00-5.40); WHITE BLOOD COUNT 10.1 10^3/uL (4.0-10.0)
[2022-03-06 11:07] LABS: HEMOGLOBIN A1c 6.7 %
[2022-03-06 11:24] LABS: TOTAL PROTEIN,RANDOM URINE 28.2 MG/DL (0.0-12.0)
[2022-03-06 13:16] LABS: GC DNA AMPLIFICATION NEGATIVE (NEGATIVE)
[2022-03-06 13:43] LABS: HEPATITIS C VIRUS ABY INDEX 0.2 INDEX (<0.8); HIV 1&2 SCREEN CENTAUR NEGATIVE (NEGATIVE)
[2022-03-06 13:55] LABS: ALT/SGPT 36 U/L (12-78); BILIRUBIN,TOTAL 0.9 MG/DL (0.2-1.0); CREATININE FOR GFR 0.78 MG/DL (0.55-1.30); GLOMERULAR FILTRATION RATE > 60.0 (>60); LDH LACTATE DEHYDROGENASE 163 U/L (84-246); URIC ACID 4.3 MG/DL (2.6-6.0)
== END ==
LOC: M PLALAB 07:48
PROVIDERS: ATTEND Advanced Practice Midwife
DX: O24.311 Unspecified pre-existing diabetes mellitus in pregnancy, first trimester (principal)

== ENCOUNTER → 2022-03-18 | Outpatient (CLI) | payer OTHER | LOC: M PLALAB 07:56 | PROVIDERS: ATTEND Advanced Practice Midwife | DX: O24.311 Unspecified pre-existing diabetes mellitus in pregnancy, first trimester (principal); Z3A.00 Weeks of gestation of pregnancy not specified ==

== ENCOUNTER → 2022-07-23 | Outpatient (CLI) | payer OTHER ==
[~2022-07-23] MED LIST changes: +LIDO15SO4 PO; -LIDO2SOL17 PO; +MONT-5 PO; -SING10TA32 PO
== END ==
LOC: M WHC 13:34
PROVIDERS: ATTEND Obstetrics & Gynecology
DX: O24.312 Unspecified pre-existing diabetes mellitus in pregnancy, second trimester (principal)

== ENCOUNTER → 2022-07-29 | Outpatient (CLI) | payer OTHER ==
[2022-07-29 15:59] LABS: HEMATOCRIT 32.5 % (36.0-47.0); MEAN CORPUSCULAR HEMOGLOBIN 30.1 pg (27.0-33.0); MEAN CORPUSCULAR HGB CONC 33.8 g/dl (32.0-36.5); MEAN CORPUSCULAR VOLUME 88.8 fl (80.0-96.0); PLATELET COUNT, AUTOMATED 192 10^3/uL (150-450); RED BLOOD COUNT 3.66 10^6/uL (4.00-5.40); WHITE BLOOD COUNT 10.2 10^3/uL (4.0-10.0)
[2022-07-29 16:28] LABS: HEMOGLOBIN A1c 5.9 % (4.0-6.0)
== END ==
LOC: M PLALAB 12:36
PROVIDERS: ATTEND Advanced Practice Midwife
DX: O24.313 Unspecified pre-existing diabetes mellitus in pregnancy, third trimester (principal)

== ENCOUNTER → 2022-08-07 | Outpatient (REF) | payer OTHER ==
[~2022-08-07] MED LIST changes: +LIDO15SO PO; -LIDO15SO4 PO
[2022-08-07 13:18] LABS: BASO % 0.5 % (0.0-1.0); EOS # 0.1 10^3/uL (0.0-0.5); HEMATOCRIT 33.1 % (36.0-47.0); HEMOGLOBIN 11.1 g/dl (12.0-15.5); LYMPH # 1.9 10^3/uL (1.5-5.0); LYMPH % 21.5 % (24.0-44.0); MEAN CORPUSCULAR HEMOGLOBIN 29.7 pg (27.0-33.0); MEAN CORPUSCULAR HGB CONC 33.5 g/dl (32.0-36.5); MEAN CORPUSCULAR VOLUME 88.5 fl (80.0-96.0); MONO # 0.7 10^3/uL (0.0-0.8); MONO % 8.6 % (2.0-8.0); NEUTROPHILS # 5.9 10^3/uL (1.5-8.5); NEUTROPHILS % 67.8 % (36.0-66.0); PLATELET COUNT, AUTOMATED 173 10^3/uL (150-450); RED BLOOD COUNT 3.74 10^6/uL (4.00-5.40); WHITE BLOOD COUNT 8.7 10^3/uL (4.0-10.0)
[2022-08-07 13:49] LABS: THYROID STIMULATING HORMONE 1.508 uIU/ML (0.55-4.78)
[2022-08-07 13:50] LABS: TOTAL 25(OH) VITAMIN D 17.6 NG/ML (20.0-100.0)
[2022-08-07 13:51] LABS: ALBUMIN 2.6 G/DL (3.2-5.2); ALKALINE PHOSPHATASE 65 U/L (46-116); ALT/SGPT 13 U/L (7.0-40); AST/SGOT 11 U/L (<34); BLOOD UREA NITROGEN 7 MG/DL (9-23); CARBON DIOXIDE LEVEL 22 MMOL/L (20-31); CHLORIDE LEVEL 104 MMOL/L (98-107); CHOLESTEROL LEVEL 215 MG/DL (<200); CHOLESTEROL RISK RATIO 4.85 (<5); CREATININE FOR GFR 0.54 MG/DL (0.55-1.30); GLOMERULAR FILTRATION RATE > 60.0 (>60); GLUCOSE, FASTING 136 MG/DL (60-100); HDL CHOLESTEROL 44.3 MG/DL (>40); NON-HDL-C 170.7 MG/DL; POTASSIUM SERUM 3.7 MMOL/L (3.5-5.1); SODIUM LEVEL 136 MMOL/L (136-145); TOTAL PROTEIN 5.9 G/DL (5.7-8.2); TRIGLYCERIDES LEVEL 421 MG/DL (<150)
[2022-08-07 16:23] LABS: HEMOGLOBIN A1c 5.9 % (4.0-6.0)
== END ==
LOC: M LAB REF 12:34
PROVIDERS: ATTEND Nurse Practitioner Family
DX: Z13.228 Encounter for screening for other metabolic disorders (principal)

== ENCOUNTER → 2022-08-20 | Outpatient (CLI) | payer OTHER | LOC: M WHC 09:29 | PROVIDERS: ATTEND Advanced Practice Midwife | DX: O24.313 Unspecified pre-existing diabetes mellitus in pregnancy, third trimester (principal); Z3A.34 34 weeks gestation of pregnancy ==

== ENCOUNTER → 2022-08-24 | Outpatient (REF) | payer OTHER ==
[2022-08-24 16:17] LABS: TOTAL PROTEIN,RANDOM URINE 28.5 MG/DL (0.0-14.0)
[2022-08-24 16:21] LABS: CREATININE,RANDOM URINE 77.8 MG/DL
== END ==
LOC: M PLALAB 13:57
PROVIDERS: ATTEND Obstetrics & Gynecology
DX: O13.9 Gestational [pregnancy-induced] hypertension without significant proteinuria, unspecified trimester (principal)

== ENCOUNTER → 2022-09-02 | Outpatient (CLI) | payer OTHER ==
[~2022-09-02] MED LIST changes: +ALBU8.5H; +ASPI-655 PO; +BUSP5TA PO; +ERGO500029; +FOLI1TAB11 PO; +INSU100I14; +[UNRECOGNIZED DRUG - OTHER]
== END ==
LOC: M WHC 10:24
PROVIDERS: ATTEND Advanced Practice Midwife
DX: O24.313 Unspecified pre-existing diabetes mellitus in pregnancy, third trimester (principal)

== ENCOUNTER → 2022-09-03 | Outpatient (REF) | payer OTHER | LOC: M PLALAB 08:59 | PROVIDERS: ATTEND Obstetrics & Gynecology | DX: Z34.80 Encounter for supervision of other normal pregnancy, unspecified trimester (principal) ==

== ENCOUNTER 2022-09-10 05:12 | Inpatient (IN) | payer OTHER ==
[2022-09-10] VITALS (13 sets, daily range): BP systolic 124–187; BP diastolic 65–114
[~2022-09-10] VITALS: Ht 152.4 cm; Wt 108.9 kg
[~2022-09-10 05:12] MED LIST changes: -ALBU8.5H; +ALBU8.5H INFIL
[2022-09-10] MEDS ORDERED: LACTATED RINGER'S 1000 ML IV STA (05:24)
[2022-09-10] MEDS ORDERED: ceFAZolin SOD 3 GM IV Place Holder IV ONE (05:25)
[2022-09-10] MEDS ORDERED: ceFAZolin SOD 1 GM in D5W MINI-BAG PLUS 50 ML IV ONE (06:00)
[2022-09-10] MEDS ORDERED: ceFAZolin SOD 2 GM in IV 1 EA IV ONE (06:00)
[2022-09-10] MEDS: LR 1,000 ML IV SCH ×5 (06:00→22:00)
[2022-09-10 06:06] LABS: HEMATOCRIT 34.4 % (36.0-47.0); HEMOGLOBIN 11.7 g/dl (12.0-15.5); MEAN CORPUSCULAR HEMOGLOBIN 28.9 pg (27.0-33.0); MEAN CORPUSCULAR VOLUME 84.9 fl (80.0-96.0); PLATELET COUNT, AUTOMATED 165 10^3/uL (150-450); RED BLOOD COUNT 4.05 10^6/uL (4.00-5.40); WHITE BLOOD COUNT 10.1 10^3/uL (4.0-10.0)
[2022-09-10] MEDS ORDERED: HOME MED LIST COMPLETE! XX SCH (06:25)
[2022-09-10] MEDS ORDERED: LABETALOL 100MG/20ML VIAL IV STA (06:49)
[2022-09-10] MEDS ORDERED: BICITRA 30ML SOLN UDC PO ONE (07:20)
[2022-09-10] MEDS ORDERED: KETOROLAC 60MG 2ML VIAL As Ordered ONE (07:25)
[2022-09-10] MEDS ORDERED: OXYTOCIN INJ 10UNITS/ML 1ML VIAL As Ordered ONE (07:25)
[2022-09-10] MEDS ORDERED: BICITRA 30ML SOLN UDC As Ordered ONE (07:26)
[2022-09-10] MEDS ORDERED: MORPHINE PRES-FREE INJ 10 MG/10 ML VIAL As Ordered ONE (07:26)
[2022-09-10 07:28] LABS: URIC ACID 5.2 MG/DL (3.1-7.8)
[2022-09-10 07:30] LABS: LDH LACTATE DEHYDROGENASE 205 U/L (120-246)
[2022-09-10] MEDS: INSULIN LISPRO (NovoLOG) PER UNIT SC SCH ×2 (07:30→17:47)
[2022-09-10] MEDS: HumuLIN N INSULIN (NovoLIN N) PER UNIT SC SCH ×2 (07:30→17:47)
[2022-09-10 07:31] LABS: ALT/SGPT 16 U/L (7.0-40); AST/SGOT 18 U/L (<34); BILIRUBIN,TOTAL 1.2 MG/DL (0.3-1.2); CREATININE FOR GFR 0.77 MG/DL (0.55-1.30); GLOMERULAR FILTRATION RATE > 60.0 (>60)
[2022-09-10] MEDS ORDERED: ceFAZolin 1GM VIAL As Ordered ONE ×2 (07:47→07:48)
[2022-09-10 07:52] LABS: CREATININE,RANDOM URINE 20.8 MG/DL
[2022-09-10 07:55] LABS: TOTAL PROTEIN,RANDOM URINE < 6.0 MG/DL (0.0-14.0)
[2022-09-10] MEDS ORDERED: LABETALOL 100MG/20ML VIAL As Ordered ONE (08:36)
[2022-09-10] MEDS ORDERED: METOPROLOL 5 MG/5 ML VIAL As Ordered ONE (08:45)
[2022-09-10] MEDS: DOCUSATE SODIUM 100MG CAPSULE PO SCH ×2 (09:00→21:07)
[2022-09-10] MEDS: ESCITALOPRAM OXALATE 10 MG TAB (LEXAPRO) PO SCH (09:00)
[2022-09-10] MEDS: busPIRone 5 MG TAB PO SCH (09:00)
[2022-09-10] MEDS: LABETALOL 200 MG TAB PO SCH ×2 (09:00→21:09)
[2022-09-10] MEDS: PRENATAL VITAMINS CHEWABLE TABLET PO SCH (09:00)
[2022-09-10] MEDS ORDERED: hydrALAZINE 20MG/ML 1ML VIAL As Ordered ONE (09:02)
[2022-09-10] MEDS ORDERED: PERCOCET 5MG/325MG TAB PO PRN (09:20)
[2022-09-10] MEDS ORDERED: MORPHINE 4 MG/ML 1ML VIAL IV PRN (09:20)
[2022-09-10] MEDS ORDERED: MOM 30ML SUSPENSION UDC PO PRN (09:20)
[2022-09-10] MEDS ORDERED: ANUSOL HC CREAM 30GM TOP PRN (09:20)
[2022-09-10] MEDS ORDERED: OXYTOCIN DRIP 30 UNITS in IV 1 EA IV SCH (09:20)
[2022-09-10] MEDS ORDERED: RHOGAM 300MCG (1500IU) INJ IM SCH (09:20)
[2022-09-10] MEDS ORDERED: ACETAMINOPHEN 500 MG TAB PO PRN (09:20)
[2022-09-10] MEDS ORDERED: ONDANSETRON 4MG 2ML VIAL IV PRN ×2 (09:20→10:20)
[2022-09-10] MEDS ORDERED: SIMETHICONE 80MG CHEW TAB PO PRN (09:20)
[2022-09-10] MEDS ORDERED: OXYTOCIN 30UNITS IN 0.9% NaCl 500ML IV BAG As Ordered ONE (09:48)
[2022-09-10] MEDS ORDERED: METOCLOPRAMIDE INJ 10MG/2ML VIAL IV PRN (10:20)
[2022-09-10] MEDS ORDERED: NALOXONE INJ 0.4MG/1ML VIAL IV PRN ×2 (10:20)
[2022-09-10] MEDS ORDERED: oxyCODONE 5MG TAB PO PRN (10:20)
[2022-09-10] MEDS: SLF 3 ML SYR IV SCH ×2 (10:20→18:20)
[2022-09-10] MEDS ORDERED: diphenhydrAMINE 50MG/ML VIAL IV PRN (10:20)
[2022-09-10] MEDS ORDERED: fentaNYL 100 MCG/2 ML INJECTION IV PRN (10:20)
[2022-09-10] MEDS ORDERED: **NOTE PATIENT COMMENT** MISC XX SCH (10:20)
[2022-09-10] MEDS ORDERED: ALBUTEROL 90 MCG/ACT 8GM HFA INHALER INH PRN (10:20)
[2022-09-10] MEDS ORDERED: HYDROMORPHONE HCL 0.5 MG/ 0.5 ML SYRINGE IV PRN (10:20)
[2022-09-10] MEDS ORDERED: MEPERIDINE 25 MG/ML 1ML VIAL IV PRN (10:20)
[2022-09-10] MEDS: SYMBICORT 160/4.5MCG INHALER 6GM INH SCH ×2 (10:45→21:13)
[2022-09-10] MEDS ORDERED: PANTOPRAZOLE 40MG VIAL IV ONE (14:00)
[2022-09-10] MEDS: KETOROLAC 30 MG/ML 1ML VIAL IV SCH ×2 (14:45→21:07)
[2022-09-10] MEDS ORDERED: LR 1,000 ML IV ONE (15:25)
[2022-09-10] MEDS: ENOXAPARIN 40MG/0.4ML SYRINGE (J1650 PER 10MG) SC SCH (17:45)
[2022-09-10] MEDS ORDERED: LR 500 ML IV STA (22:21)
[2022-09-11 02:03] VITALS: BP 125/66
[2022-09-11] MEDS: SLF 3 ML SYR IV SCH (02:20)
[2022-09-11] MEDS: KETOROLAC 30 MG/ML 1ML VIAL IV SCH (03:02)
[2022-09-11 06:00] VITALS: BP 150/79
[2022-09-11 07:52] LABS: MEAN CORPUSCULAR HEMOGLOBIN 29.2 pg (27.0-33.0); MEAN CORPUSCULAR HGB CONC 33.2 g/dl (32.0-36.5); PLATELET COUNT, AUTOMATED 149 10^3/uL (150-450); RED BLOOD COUNT 3.08 10^6/uL (4.00-5.40); WHITE BLOOD COUNT 8.8 10^3/uL (4.0-10.0)
[2022-09-11 07:56] LABS: HEMATOCRIT 27.1 % (36.0-47.0)
[2022-09-11] MEDS: SYMBICORT 160/4.5MCG INHALER 6GM INH SCH ×2 (08:21→19:56)
[2022-09-11] MEDS: DOCUSATE SODIUM 100MG CAPSULE PO SCH ×2 (08:24→21:14)
[2022-09-11] MEDS: PRENATAL VITAMINS CHEWABLE TABLET PO SCH (08:24)
[2022-09-11] MEDS: LABETALOL 200 MG TAB PO SCH ×2 (08:25→21:14)
[2022-09-11] MEDS: INSULIN LISPRO (NovoLOG) PER UNIT SC SCH ×2 (08:26→18:33)
[2022-09-11] MEDS: HumuLIN N INSULIN (NovoLIN N) PER UNIT SC SCH ×2 (08:26→18:32)
[2022-09-11] MEDS: busPIRone 5 MG TAB PO SCH (09:28)
[2022-09-11] MEDS: ESCITALOPRAM OXALATE 10 MG TAB (LEXAPRO) PO SCH (09:28)
[2022-09-11 10:00] VITALS: BP 136/68
[2022-09-11] MEDS: IBUPROFEN 800 MG TAB PO SCH ×2 (11:12→18:32)
[2022-09-11] MEDS: PERCOCET 5MG/325MG TAB PO PRN ×2 (12:23→17:57)
[2022-09-11 14:00] VITALS: BP 121/53
[2022-09-11] MEDS: ENOXAPARIN 40MG/0.4ML SYRINGE (J1650 PER 10MG) SC SCH (17:58)
[2022-09-11 18:38] VITALS: BP 135/69
[2022-09-11 22:00] VITALS: BP 131/61
[2022-09-12 02:00] VITALS: BP 105/55
[2022-09-12] MEDS: IBUPROFEN 800 MG TAB PO SCH ×2 (02:57→13:15)
[2022-09-12 06:00] VITALS: BP 147/68
[2022-09-12] MEDS: SYMBICORT 160/4.5MCG INHALER 6GM INH SCH (08:40)
[2022-09-12 08:53] VITALS: BP 147/68
[2022-09-12] MEDS: PRENATAL VITAMINS CHEWABLE TABLET PO SCH (08:53)
[2022-09-12] MEDS: LABETALOL 200 MG TAB PO SCH (08:53)
[2022-09-12] MEDS: DOCUSATE SODIUM 100MG CAPSULE PO SCH (08:53)
[2022-09-12] MEDS: HumuLIN N INSULIN (NovoLIN N) PER UNIT SC SCH (08:53)
[2022-09-12] MEDS: busPIRone 5 MG TAB PO SCH (08:54)
[2022-09-12] MEDS: ESCITALOPRAM OXALATE 10 MG TAB (LEXAPRO) PO SCH (08:54)
[2022-09-12] MEDS: INSULIN LISPRO (NovoLOG) PER UNIT SC SCH (08:54)
[2022-09-12] MEDS ORDERED: MEASLES,MUMPS,RUBELLA VACCINE INJ (MMR-II) SC.IMMUN ONE (09:00)
[2022-09-12 10:00] VITALS: BP 139/69
[2022-09-12] MEDS ORDERED: PERCOCET PO (10:50)
[2022-09-12] MEDS ORDERED: IBUP80TA PO (10:50)
[2022-09-12] MEDS ORDERED: LABE20TAB PO (10:50)
== END 2022-09-12 13:16 | disposition home or self-care (01) | DRG 540 ==
LOC: M LDI 05:12 → M OBS 11:12
PROVIDERS: ADMIT Obstetrics & Gynecology; ATTEND Obstetrics & Gynecology
PROC: 10D00Z1 Extraction of Products of Conception, Low, Open Approach (ICD-10-PCS; principal; 2022-09-10 07:30)
DX: O34.211 Maternal care for low transverse scar from previous cesarean delivery (principal); Z3A.37 37 weeks gestation of pregnancy; O14.04 Mild to moderate pre-eclampsia, complicating childbirth; Z79.4 Long term (current) use of insulin; Z79.899 Other long term (current) drug therapy; Z37.0 Single live birth

== ENCOUNTER 2023-05-10 11:46 | Emergency (ER) | payer OTHER ==
[~2023-05-10] VITALS: Ht 162.6 cm; Wt 103.6 kg
[~2023-05-10 11:46] MED LIST changes: +IBUP80TA PO; +LABE20TAB PO
[2023-05-10] MEDS ORDERED: SEMA0.257 (12:02)
[2023-05-10] MEDS ORDERED: CETIRIZINE (ZyrTEC) 10 MG TAB PO ONE (13:15)
[2023-05-10 13:32] LABS: BASO # 0.1 10^3/uL (0.0-0.2); BASO % 0.7 % (0.0-1.0); EOS # 0.2 10^3/uL (0.0-0.5); HEMATOCRIT 41.7 % (36.0-47.0); HEMOGLOBIN 14.6 g/dl (12.0-15.5); LYMPH % 31.1 % (24.0-44.0); MEAN CORPUSCULAR HEMOGLOBIN 30.7 pg (27.0-33.0); MEAN CORPUSCULAR VOLUME 87.6 fl (80.0-96.0); MONO # 0.6 10^3/uL (0.0-0.8); MONO % 6.3 % (2.0-8.0); NEUTROPHILS # 5.7 10^3/uL (1.5-8.5); NEUTROPHILS % 59.5 % (36.0-66.0); PLATELET COUNT, AUTOMATED 269 10^3/uL (150-450); RED BLOOD COUNT 4.76 10^6/uL (4.00-5.40); WHITE BLOOD COUNT 9.5 10^3/uL (4.0-10.0)
[2023-05-10 13:39] LABS: ERYTHROCYTE SEDIMENTATION RATE 17 mm/hr (0-20)
[2023-05-10 13:40] LABS: INR 1.02; PROTHROMBIN TIME 13.1 SECONDS (12.5-14.5)
[2023-05-10 13:41] LABS: PARTIAL THROMBOPLASTIN TIME 29.7 SECONDS (24.8-34.2)
[2023-05-10 14:07] LABS: ALKALINE PHOSPHATASE 54 U/L (46-116); ALT/SGPT 62 U/L (7.0-40); AST/SGOT 67 U/L (<34); BILIRUBIN,DIRECT 0.2 MG/DL (<0.4); BILIRUBIN,TOTAL 1.2 MG/DL (0.3-1.2); BLOOD UREA NITROGEN 13 MG/DL (9-23); CALCIUM LEVEL 10.9 MG/DL (8.5-10.1); CARBON DIOXIDE LEVEL 24 MMOL/L (20-31); CHLORIDE LEVEL 99 MMOL/L (98-107); CREATININE FOR GFR 0.56 MG/DL (0.55-1.30); GLOMERULAR FILTRATION RATE > 60.0 (>60); GLUCOSE, FASTING 153 MG/DL (60-100); POTASSIUM SERUM 4.7 MMOL/L (3.5-5.1); SODIUM LEVEL 132 MMOL/L (136-145); TOTAL PROTEIN 7.7 G/DL (5.7-8.2)
[2023-05-10] MEDS ORDERED: ceFAZolin SOD 2 GM in IV 1 EA IV ONE (15:30)
[2023-05-10] MEDS ORDERED: NS IV ONE (15:30)
[2023-05-10] MEDS ORDERED: CETI10CH PO (20:14)
[2023-05-10] MEDS ORDERED: CEPH500C PO (20:14)
[2023-05-10 21:18] VITALS: BP 126/88; TEMP 97.1; O2SAT 99
== END 2023-05-10 21:20 | disposition home or self-care (01) ==
LOC: M ED 11:46
DX: L03.113 Cellulitis of right upper limb (principal); R74.02 Elevation of levels of lactic acid dehydrogenase [LDH]; E11.9 Type 2 diabetes mellitus without complications; F32.A Depression, unspecified; J45.909 Unspecified asthma, uncomplicated
CPT/HCPCS: 80048; 80076; 83605; 85025; 85610; 85652; 85730; 86140; 87040; 87077; 96374; 99284; J0690

== ENCOUNTER → 2023-06-07 | Outpatient (REF) | payer OTHER ==
[~2023-06-07] MED LIST changes: +CEPH500C PO; +CETI10CH PO; +SEMA0.257
[2023-06-07 13:35] LABS: CREATININE, URINE 68.1 MG/DL; MAU/CREAT RATIO 73.4 MCG/MG (0.0-30.0)
[2023-06-07 14:42] LABS: HEMOGLOBIN A1c 7.1 % (4.0-6.0)
[2023-06-07 14:48] LABS: ALBUMIN 3.6 G/DL (3.2-5.2); ALKALINE PHOSPHATASE 59 U/L (46-116); ALT/SGPT 75 U/L (7.0-40); AST/SGOT 46 U/L (<34); BLOOD UREA NITROGEN 13 MG/DL (9-23); CALCIUM LEVEL 9.1 MG/DL (8.5-10.1); CARBON DIOXIDE LEVEL 25 MMOL/L (20-31); CHLORIDE LEVEL 104 MMOL/L (98-107); CHOLESTEROL LEVEL 189 MG/DL (<200); CHOLESTEROL RISK RATIO 5.59 (<5); CREATININE FOR GFR 0.75 MG/DL (0.55-1.30); GLOMERULAR FILTRATION RATE > 60.0 (>60); GLUCOSE, FASTING 277 MG/DL (60-100); HDL CHOLESTEROL 33.8 MG/DL (>40); NON-HDL-C 155.2 MG/DL; POTASSIUM SERUM 3.7 MMOL/L (3.5-5.1); SODIUM LEVEL 135 MMOL/L (136-145); TOTAL PROTEIN 6.7 G/DL (5.7-8.2); TRIGLYCERIDES LEVEL 301 MG/DL (<150)
== END ==
LOC: M LAB REF 12:02
PROVIDERS: ATTEND Nurse Practitioner Family
DX: E11.9 Type 2 diabetes mellitus without complications (principal); R79.89 Other specified abnormal findings of blood chemistry

== ENCOUNTER → 2023-06-14 | Outpatient (REF) | payer OTHER ==
[2023-06-14 17:39] LABS: CREATININE, URINE 133.7 MG/DL; CREATININE,RANDOM URINE 133.7 MG/DL; MAU/CREAT RATIO 160.8 MCG/MG (0.0-30.0)
== END ==
LOC: M LAB REF 16:05
PROVIDERS: ATTEND Nurse Practitioner Family
DX: E11.9 Type 2 diabetes mellitus without complications (principal)

== ENCOUNTER → 2023-06-30 | Outpatient (CLI) | payer OTHER ==
[~2023-06-30] MED LIST changes: -LIDO15SO PO; +LIDO15SO8 PO
== END ==
LOC: M WHC 08:29
PROVIDERS: ATTEND Nurse Practitioner Family
DX: R74.8 Abnormal levels of other serum enzymes (principal)

== ENCOUNTER → 2023-09-14 | Outpatient (REF) | payer OTHER ==
[~2023-09-14] MED LIST changes: +DOXY-323 PO; -DOXY-443 PO
[2023-09-14 12:23] LABS: ALBUMIN 4.1 G/DL (3.2-5.2); ALKALINE PHOSPHATASE 68 U/L (46-116); ALT/SGPT 45 U/L (7.0-40); AST/SGOT 22 U/L (<34); BILIRUBIN,TOTAL 1.8 MG/DL (0.3-1.2); BLOOD UREA NITROGEN 8 MG/DL (9-23); CALCIUM LEVEL 9.9 MG/DL (8.5-10.1); CARBON DIOXIDE LEVEL 25 MMOL/L (20-31); CHLORIDE LEVEL 103 MMOL/L (98-107); CHOLESTEROL LEVEL 172 MG/DL (<200); CHOLESTEROL RISK RATIO 4.71 (<5); GLOMERULAR FILTRATION RATE > 60.0 (>60); GLUCOSE, FASTING 156 MG/DL (60-100); HDL CHOLESTEROL 36.5 MG/DL (>40); LDL CHOLESTEROL 107.5 MG/DL (<100); NON-HDL-C 135.5 MG/DL; POTASSIUM SERUM 3.9 MMOL/L (3.5-5.1); SODIUM LEVEL 136 MMOL/L (136-145); TOTAL PROTEIN 7.3 G/DL (5.7-8.2); TRIGLYCERIDES LEVEL 140 MG/DL (<150)
[2023-09-14 12:45] LABS: HEMOGLOBIN A1c 6.4 % (4.0-6.0)
== END ==
LOC: M LAB REF 11:40
PROVIDERS: ATTEND Nurse Practitioner Family
DX: E11.9 Type 2 diabetes mellitus without complications (principal); E78.5 Hyperlipidemia, unspecified

== ENCOUNTER → 2023-12-13 | Outpatient (REF) | payer OTHER ==
[~2023-12-13] MED LIST changes: +ONDA-282 PO; -ONDA4TAB6 PO
[2023-12-13 18:22] LABS: HEMOGLOBIN A1c 7.8 % (4.0-6.0)
[2023-12-13 18:42] LABS: ALKALINE PHOSPHATASE 69 U/L (46-116); ALT/SGPT 73 U/L (7.0-40); AST/SGOT 56 U/L (<34); BILIRUBIN,TOTAL 1.2 MG/DL (0.3-1.2); BLOOD UREA NITROGEN 11 MG/DL (9-23); CALCIUM LEVEL 9.3 MG/DL (8.5-10.1); CARBON DIOXIDE LEVEL 25 MMOL/L (20-31); CHLORIDE LEVEL 103 MMOL/L (98-107); CHOLESTEROL LEVEL 210 MG/DL (<200); CHOLESTEROL RISK RATIO 5.63 (<5); CREATININE FOR GFR 0.67 MG/DL (0.55-1.30); GLOMERULAR FILTRATION RATE > 60.0 (>60); GLUCOSE, FASTING 174 MG/DL (60-100); HDL CHOLESTEROL 37.3 MG/DL (>40); LDL CHOLESTEROL 125.1 MG/DL (<100); NON-HDL-C 172.7 MG/DL; POTASSIUM SERUM 4.2 MMOL/L (3.5-5.1); SODIUM LEVEL 136 MMOL/L (136-145); TOTAL PROTEIN 7.5 G/DL (5.7-8.2); TRIGLYCERIDES LEVEL 238 MG/DL (<150)
== END ==
LOC: M LAB REF 16:28
PROVIDERS: ATTEND Nurse Practitioner Family
DX: E11.9 Type 2 diabetes mellitus without complications (principal); E78.5 Hyperlipidemia, unspecified

== ENCOUNTER → 2024-02-21 | Outpatient (REF) | payer OTHER ==
[~2024-02-21] MED LIST changes: -DOXY-323 PO; +DOXY-441 PO
== END ==
LOC: M LAB REF 16:27
PROVIDERS: ATTEND Nurse Practitioner Family
DX: J06.9 Acute upper respiratory infection, unspecified (principal)

== ENCOUNTER → 2024-03-20 | Outpatient (CLI) | payer OTHER ==
[2024-03-20 08:38] LABS: BLOOD UREA NITROGEN 15 MG/DL (9-23); CALCIUM LEVEL 9.4 MG/DL (8.5-10.1); CARBON DIOXIDE LEVEL 26 MMOL/L (20-31); CHLORIDE LEVEL 105 MMOL/L (98-107); CREATININE FOR GFR 0.73 MG/DL (0.55-1.30); GLOMERULAR FILTRATION RATE > 60.0 (>60); GLUCOSE, FASTING 160 MG/DL (60-100); POTASSIUM SERUM 4.2 MMOL/L (3.5-5.1); SODIUM LEVEL 138 MMOL/L (136-145)
== END ==
LOC: M LAB 07:04
PROVIDERS: ATTEND Nurse Practitioner Family
DX: E11.65 Type 2 diabetes mellitus with hyperglycemia (principal)

== ENCOUNTER → 2024-05-03 | Outpatient (REF) | payer OTHER | LOC: M LAB REF 15:46 | PROVIDERS: ATTEND Nurse Practitioner Family | DX: R39.9 Unspecified symptoms and signs involving the genitourinary system (principal) ==

== ENCOUNTER → 2024-07-03 | Outpatient (REF) | payer OTHER | LOC: M LAB REF 16:21 | PROVIDERS: ATTEND Nurse Practitioner Family | DX: R39.9 Unspecified symptoms and signs involving the genitourinary system (principal) ==

== ENCOUNTER → 2024-07-28 | Outpatient (CLI) | payer OTHER | LOC: M ADAMS 11:07 | PROVIDERS: ATTEND Nurse Practitioner Family | DX: M25.562 Pain in left knee (principal) ==

== ENCOUNTER → 2024-08-03 | Outpatient (REF) | payer OTHER ==
[2024-08-03 13:31] LABS: BASO # 0.1 10^3/uL (0.0-0.2); BASO % 0.8 % (0.0-1.0); EOS # 0.4 10^3/uL (0.0-0.5); EOS % 4.5 % (0.0-3.0); HEMATOCRIT 43.4 % (36.0-47.0); HEMOGLOBIN 14.9 g/dl (12.0-15.5); LYMPH # 3.1 10^3/uL (1.5-5.0); LYMPH % 32.1 % (24.0-44.0); MEAN CORPUSCULAR HEMOGLOBIN 30.7 pg (27.0-33.0); MEAN CORPUSCULAR HGB CONC 34.3 g/dl (32.0-36.5); MEAN CORPUSCULAR VOLUME 89.3 fl (80.0-96.0); MONO # 0.6 10^3/uL (0.0-0.8); MONO % 6.5 % (2.0-8.0); NEUTROPHILS # 5.3 10^3/uL (1.5-8.5); NEUTROPHILS % 55.5 % (36.0-66.0); PLATELET COUNT, AUTOMATED 258 10^3/uL (150-450); RED BLOOD COUNT 4.86 10^6/uL (4.00-5.40); WHITE BLOOD COUNT 9.5 10^3/uL (4.0-10.0)
[2024-08-03 13:45] LABS: ALBUMIN 3.9 G/DL (3.2-5.2); ALKALINE PHOSPHATASE 75 U/L (35-104); ALT/SGPT 76 U/L (7.0-40); AST/SGOT 29 U/L (<34); BILIRUBIN,TOTAL 1.1 MG/DL (0.3-1.2); BLOOD UREA NITROGEN 18 MG/DL (9-23); CALCIUM LEVEL 9.6 MG/DL (8.5-10.1); CARBON DIOXIDE LEVEL 27 MMOL/L (20-31); CHLORIDE LEVEL 99 MMOL/L (98-107); CHOLESTEROL LEVEL 188 MG/DL (<200); CHOLESTEROL RISK RATIO 4.89 (<5); CREATININE FOR GFR 0.75 MG/DL (0.55-1.30); GLOMERULAR FILTRATION RATE > 90.0 (>60); GLUCOSE, FASTING 241 MG/DL (60-100); HDL CHOLESTEROL 38.4 MG/DL (>40); LDL CHOLESTEROL 91.4 MG/DL (<100); MAGNESIUM LEVEL 1.8 MG/DL (1.8-2.4); NON-HDL-C 149.6 MG/DL; POTASSIUM SERUM 4.4 MMOL/L (3.5-5.1); SODIUM LEVEL 137 MMOL/L (136-145); TOTAL 25(OH) VITAMIN D 17.7 NG/ML (20.0-100.0); TOTAL PROTEIN 7.5 G/DL (5.7-8.2); TRIGLYCERIDES LEVEL 291 MG/DL (<150)
[2024-08-03 13:50] LABS: THYROID STIMULATING HORMONE 2.631 uIU/ML (0.55-4.78)
== END ==
LOC: M LAB REF 11:56
PROVIDERS: ATTEND Nurse Practitioner Family
DX: E66.01 Morbid (severe) obesity due to excess calories (principal); E55.9 Vitamin D deficiency, unspecified

== ENCOUNTER → 2024-10-30 | Outpatient (CLI) | payer OTHER | LOC: M RAD 15:08 | PROVIDERS: ATTEND Nurse Practitioner Family | DX: M79.644 Pain in right finger(s) (principal) ==

== ENCOUNTER → 2024-11-02 | Outpatient (REF) | payer OTHER ==
[2024-11-02 16:15] LABS: ALT/SGPT 75 U/L (7.0-40); AST/SGOT 50 U/L (<34); CALCIUM LEVEL 10.3 MG/DL (8.5-10.1); CARBON DIOXIDE LEVEL 24 MMOL/L (20-31); CHLORIDE LEVEL 101 MMOL/L (98-107); CHOLESTEROL LEVEL 197 MG/DL (<200); CHOLESTEROL RISK RATIO 4.59 (<5); CREATININE FOR GFR 0.73 MG/DL (0.55-1.30); GLOMERULAR FILTRATION RATE > 90.0 (>60); LDL CHOLESTEROL 109.5 MG/DL (<100); NON-HDL-C 154.1 MG/DL; POTASSIUM SERUM 4.1 MMOL/L (3.5-5.1); SODIUM LEVEL 139 MMOL/L (136-145); TRIGLYCERIDES LEVEL 223 MG/DL (<150)
== END ==
LOC: M LAB REF 14:23
PROVIDERS: ATTEND Nurse Practitioner Family
DX: R79.89 Other specified abnormal findings of blood chemistry (principal)

== ENCOUNTER → 2024-11-08 | Outpatient (REF) | payer OTHER ==
[2024-11-08 18:08] LABS: CALCIUM LEVEL 9.7 MG/DL (8.5-10.1); CARBON DIOXIDE LEVEL 26 MMOL/L (20-31); CHLORIDE LEVEL 101 MMOL/L (98-107); CREATININE FOR GFR 0.70 MG/DL (0.55-1.30); GLOMERULAR FILTRATION RATE > 90.0 (>60); MAGNESIUM LEVEL 1.6 MG/DL (1.8-2.4); POTASSIUM SERUM 4.5 MMOL/L (3.5-5.1); SODIUM LEVEL 140 MMOL/L (136-145)
== END ==
LOC: M LAB REF 17:24
PROVIDERS: ATTEND Nurse Practitioner Family
DX: E83.52 Hypercalcemia (principal)

== ENCOUNTER → 2024-11-20 | Outpatient (REF) | payer OTHER | LOC: M LAB REF 14:00 | PROVIDERS: ATTEND Nurse Practitioner Family | DX: R30.0 Dysuria (principal) ==

== ENCOUNTER → 2024-11-23 | Outpatient (CLI) | payer OTHER | LOC: M RAD 11:24 | PROVIDERS: ATTEND Nurse Practitioner Family | DX: M79.672 Pain in left foot (principal) ==

== ENCOUNTER → 2025-02-05 | Outpatient (REF) | payer OTHER ==
[~2025-02-05] MED LIST changes: -ASPI-655 PO; +ASPI-737 PO; -IBUP-1022 PO; +IBUP600T42 PO
[2025-02-05 13:29] LABS: ALT/SGPT 67 U/L (7.0-40); AST/SGOT 45 U/L (<34); CALCIUM LEVEL 9.1 MG/DL (8.5-10.1); CARBON DIOXIDE LEVEL 26 MMOL/L (20-31); CHLORIDE LEVEL 102 MMOL/L (98-107); CHOLESTEROL LEVEL 203 MG/DL (<200); CHOLESTEROL RISK RATIO 5.28 (<5); CREATININE FOR GFR 0.73 MG/DL (0.55-1.30); GLOMERULAR FILTRATION RATE > 90.0 (>60); LDL CHOLESTEROL 115.8 MG/DL (<100); NON-HDL-C 164.6 MG/DL; POTASSIUM SERUM 4.2 MMOL/L (3.5-5.1); SODIUM LEVEL 138 MMOL/L (136-145); TRIGLYCERIDES LEVEL 244 MG/DL (<150)
[2025-02-05 13:36] LABS: PLATELET COUNT, AUTOMATED 251 10^3/uL (150-450)
[2025-02-05 14:04] LABS: CREATININE, URINE 173.5 MG/DL; MALB URINE SIEMENS 119.0 MG/L; MAU/CREAT RATIO 68.5 MCG/MG (0.0-30.0)
== END ==
LOC: M LAB REF 11:35
PROVIDERS: ATTEND Nurse Practitioner Family
DX: E11.65 Type 2 diabetes mellitus with hyperglycemia (principal); E78.5 Hyperlipidemia, unspecified

== ENCOUNTER → 2025-03-30 | Outpatient (CLI) | payer OTHER | LOC: M PLARAD 08:35 | PROVIDERS: ATTEND Nurse Practitioner Family | DX: M54.16 Radiculopathy, lumbar region (principal) ==